=== PATIENT | male | born 1975 | race Caucasian/White ===

== ENCOUNTER 2020-12-20 23:56 | Emergency (ER) | payer OTHER, SELFPAY ==
[2020-12-20 23:58] VITALS: BP 141/99; PULSE 79; RESP 18; TEMP 36.3; O2SAT 98
[2020-12-21] MEDS: LORazepam (*CRX) 1 MG TABLET PO (00:07)
--- NOTE | 2020-12-21 00:30 | ED.ANXIETY ---
HPI - Anxiety General Chief Complaint: Anxiety Stated Complaint: anxiety Time Seen by Provider: 12/21/20 00:00 Source: patient Mode of arrival: EMS Limitations: no limitations History of Present Illness HPI narrative: 45-year-old with a history of anxiety was brought in ambulance from the street complaining that he is feeling anxious. He states that police were chasing him. Patient is homeless. He denies any other symptoms. complaint: anxiety Onset (ago): hour(s) (2) Severity: mild Quality: constant Place: outdoors History of similar episodes: Yes Provoking factors: other (Homeless) Relieving factors: nothing Exacerbating factors: nothing Associated symptoms: denies other symptoms Related Data Allergies Allergy/AdvReac Type Severity Reaction Status Date / Time Unable to Assess Allergy Unverified 11/04/18 06:45 Review of Systems Review of Systems: All systems reviewed & are unremarkable except as noted in HPI and below Constitutional: Constitutional: Reports no additional constitutional complaints Eyes: Eyes: Reports no additional eye complaints ENT: Reports system reviewed and no additional complaints, except as documented Cardiovascular: Cardiovascular: Reports no additional cardiovascular complaints Respiratory: Respiratory: Reports no additional respiratory complaints Gastrointestinal: Gastrointestinal: Reports no additional gastrointestinal complaints Genitourinary: Genitourinary: Reports no additional male genitourinary complaints Neurologic: Reports system reviewed and no additional complaints, except as documented [facility] Social History Social History Substance use type: other Exam Narrative: GENERAL: unkempt , and in no acute distress. HEAD: Normocephalic, atraumatic. EYES: PERRLA and EOMI. NECK: Supple. CHEST: Clear to auscultation. No respiratory distress. HEART: Regular rate and rhythm. No murmur heard. Normal peripheral pulses. ABDOMEN: Soft, nontender, nondistended, normal active bowel sounds. EXTREMITIES: Normal range of motion. No edema. SKIN: Warm, dry, no rash. NEURO: No focal deficits. Alert and oriented x3. PSYCH: Normal mood and affect. Course Course Emergency Course: pt was give Ativan and sandwich , he is feeling better Vital Signs Vital signs: Vital Signs Temperature 36.3 C L 12/20/20 23:58 Pulse Rate 79 12/20/20 23:58 Respiratory Rate 18 12/20/20 23:58 Blood Pressure 141/99 H 12/20/20 23:58 Pulse Oximetry 98 12/20/20 23:58 Temperature 36.3 C L 12/20/20 23:58 Pulse Rate 79 12/20/20 23:58 Respiratory Rate 18 12/20/20 23:58 Blood Pressure 141/99 H 12/20/20 23:58 Pulse Oximetry 98 12/20/20 23:58 Discharge Plan Discharge Clinical Impression: Acute anxiety Patient Disposition: Home, Self-Care Condition: Stable Instructions: Antibiotic Form, Anxiety (ED) Follow-up/Referrals: Samina Robbins MD [Physician] - PHYSICIAN,[employer] [Primary Care Provider] - Time of Disposition: 00:33
[2020-12-21 00:50] VITALS: BP 116/87; PULSE 98; RESP 18; O2SAT 96
== END 2020-12-21 02:00 | disposition home or self-care (01) ==
PROVIDERS: Emergency Provider Family Medicine
DX: F41.9 Anxiety disorder, unspecified (principal)
CPT/HCPCS: 99283; A9270

== ENCOUNTER 2022-02-18 21:29 | Emergency (ER) | payer OTHER, SELFPAY ==
[2022-02-18 21:37] VITALS: BP 124/94; PULSE 100; RESP 14; TEMP 36.6; O2SAT 99
--- NOTE | 2022-02-19 01:06 | ED.GENADULT ---
HPI - General Adult General Chief complaint: Environmental Exposure Stated complaint: Needs warmed up, etoh Time Seen by Provider: 02/19/22 00:49 Source: patient Mode of arrival: ambulatory Limitations: no limitations History of Present Illness HPI narrative: Patient is a 46-year-old male who presents the ED with report of feeling cold. Patient is currently homeless. He states he has been homeless on and off for the last 15 years. He was cold outside today and was looking for a warm place to go. He states he is tired of getting woken up outside constantly and being told he cannot stay in a certain place and has to move. Patient complains of generalized body aches currently. Denies any focal pain. Denies chest pain, difficulty breathing. Denies depression, SI, HI. He does admit to drinking alcohol tonight. Denies drug use. Related Data Allergies Allergy/AdvReac Type Severity Reaction Status Date / Time No Known Allergies Allergy Verified 02/19/22 01:11 Review of Systems Review of Systems: CONSTITUTIONAL: Denies fever, chills, or sweats. CARDIOVASCULAR: Denies chest pain. RESPIRATORY: Denies dyspnea. GASTROINTESTINAL: Denies abdominal pain, nausea, vomiting, or diarrhea. MUSCULOSKELETAL: Reports generalized body aches. NEUROLOGIC: Denies headache, numbness, or weakness. PSYCHIATRIC: Denies depression, SI, HI. All systems reviewed & are unremarkable except as noted in HPI and below PMFSH Past Medical History Medical History (Updated 02/19/22 @ 02:12 by Tami Figueredo PA-C) No pertinent past medical history Surgical History Surgical History (Updated 02/19/22 @ 02:12 by Tami Figueredo PA-C) No pertinent past surgical history Social History Social History (Updated 02/19/22 @ 02:12 by Tami Figueredo PA-C) Smoking status: Current every day smoker Alcohol intake: current Substance use: never Exam Narrative: GENERAL: Disheveled appearing, well-nourished, non-toxic, in no acute distress. HEAD: Normocephalic, atraumatic. EYES: PERRLA/EOMI, conjunctiva clear. ENT: Partially edentulous. Diffuse dental decay and dental caries. NECK: Supple. No adenopathy, no masses. RESPIRATORY: Airway patent, respirations nonlabored. Clear to auscultation bilaterally, no rales, rhonchi, wheezing. CARDIOVASCULAR: Regular rate and rhythm without murmurs, rubs, or gallops. Radial pulses 2+ and equal bilaterally. ABDOMINAL: Soft, nontender, nondistended, no hepatosplenomegaly. Normoactive BS. MUSCULOSKELETAL: Moves all extremities. Strength/ROM intact without gross deformities. SKIN: Warm, dry, normal color. No rashes. NEURO: A&O X3. Speech clear. Cranial nerves II-XII grossly intact. Steady gait. No ataxic movements. PSYCHIATRIC: Appropriate mood and affect. Normal interaction. Course Vital Signs Vital signs: Vital Signs Temperature 97.8 F 02/18/22 21:37 Pulse Rate 100 02/18/22 21:37 Respiratory Rate 14 02/18/22 21:37 Blood Pressure 124/94 H 02/18/22 21:37 Pulse Oximetry 99 02/18/22 21:37 Oxygen Delivery Room Air 02/18/22 21:37 Temperature 97.8 F 02/18/22 21:37 Pulse Rate 96 02/19/22 01:08 Respiratory Rate 18 02/19/22 01:08 Blood Pressure 114/89 02/19/22 01:08 Pulse Oximetry 95 02/19/22 01:08 Oxygen Delivery Room Air 02/18/22 21:37 Medical Decision Making MDM Narrative Medical decision making narrative: [facility] homeless [facility] place to [facility]. He complains of generalized body aches, but denies other acute complaints. Vitals stable. Exam benign. Patient given Tylenol in the ED. Given meal to eat. He is able to tolerate p.o. intake. Allowed to rest for short period of time. Ambulates with a steady gait. Patient alert and oriented x3. Denies SI or HI. He will be discharged. Patient provided with numerous custodial, food pantry, housing resources. Given reasons to return. Medical Records Medical records reviewed: Viviane
[2022-02-19 01:08] VITALS: BP 114/89; PULSE 96; RESP 18; O2SAT 95
--- NOTE | 2022-02-19 01:09 | PC.NURSE ---
Bed alarm placed for pt safety
[2022-02-19] MEDS: ACETAMINOPHEN 500 MG TABLET 1000 MG PO (01:50)
== END 2022-02-19 02:38 | disposition home or self-care (01) ==
PROVIDERS: Emergency Provider Physician Assistant
DX: R52 Pain, unspecified (principal); Z59.00 Homelessness unspecified; F17.210 Nicotine dependence, cigarettes, uncomplicated
CPT/HCPCS: 99283; A9270

== ENCOUNTER 2022-07-01 06:08 | Observation (INO) | payer OTHER, SELFPAY ==
[2022-07-01] VITALS (41 sets, daily range): BP systolic 115–161; BP diastolic 70–108; PULSE 76–123; RESP 14–37; TEMP 36.7; O2SAT 97–100
--- NOTE | ~2022-07-01 | CT_ITS ---
Non-contrast Head CT History: Seizure COMPARISON: 11/04/2018 Technique: Axial non-contrast imaging of the brain was performed. Dose reduction technique was used on this scan by utilizing automated exposure control and iterative reconstruction technique. The dose -length product (DLP) was 605.33 mGy-cm. Findings: There is no evidence of intracranial hemorrhage, mass lesion, or acute infarct. Brain par enchyma appears normal. The ventricles and subarachnoid spaces are mildly dilated. The calvarium ap pears normal. The visualized paranasal sinuses and mastoid air cells are clear. Mild soft tissue swe lling noted in the left parietal scalp. Impression: No acute intracranial abnormality seen. Mild generalized atrophy. Mild soft tissue swelling in the right parietal scalp. Reviewed, dictated and finalized at [facility]. Impression: No acute intracranial abnormality seen. Mild generalized atrophy. Mild soft tissue swelling in the right parietal scalp.
--- NOTE | ~2022-07-01 | XR_ITS ---
Portable chest x-ray Comparison: 02/25/2018 Clinical History: Seizure Findings: Lungs are clear, without focal consolidation or pleural effusion. Cardiomediastinal silho uette is stable. Chronic appearing left rib fracture deformities are noted. There is an apparent osse ous fragment superimposed upon the superior right humeral head. Impression: Suspected 1.6 cm acute fracture fragment superimposed upon the superior right humeral head, possibly avulsion fracture from the greater tuberosity. Cross-sectional imaging should be considered to furthe r evaluate. Clear lungs. Chronic appearing left rib fracture deformities. Reviewed, dictated and finalized at location . Impression: Suspected 1.6 cm acute fracture fragment superimposed upon the superior right h umeral head, possibly avulsion fracture from the greater tuberosity. Cross-sect ional imaging should be considered to further evaluate. Clear lungs. Chronic appearing left rib fracture deformities.
[2022-07-01 06:42] LABS: Basophils Percent Auto 0.6 % (0.2-1.2); Eosinophils Absolute Auto 0.1 K/mm3 (0-0.3); Eosinophils Percent Auto 1.3 % (0-4.4); Hematocrit 36.8 % (42.0-52.0); Hemoglobin 12.2 g/dL (14.0-18.0); Immature Granulocyte Absolute 0.02 K/mm3 (0.00-0.031); Immature Granulocyte Percent A 0.3 % (0-0.5); Lymphocytes Absolute Auto 1.04 K/mm3 (0.9-3.2); Lymphocytes Percent Auto 14.6 % (18.3-44.2); Mean Corpuscular HGB Conc 33.2 g/dl (32-36); Mean Corpuscular Hemoglobin 30.2 pg (26-34); Mean Corpuscular Volume 91.1 fl (80-100); Mean Platelet Volume 9.9 fl (7.4-10.4); Monocytes Absolute Auto 0.6 K/mm3 (0.1-0.6); Monocytes Percent Auto 8.8 % (2.6-8.5); Neutrophils Absolute Auto 5.3 K/mm3 (1.3-6.7); Neutrophils Percent Auto 74.4 % (45.5-73.1); Platelet Count Result 262 k/mm3 (150-375); Red Blood Count 4.04 M/mm3 (4.6-6.20); Red Cell Distribution Width 14.3 % (11.5-14.5); White Blood Count 7.1 K/mm3 (4.5-10.0)
--- NOTE | 2022-07-01 06:43 | ED.SEIZURE ---
HPI - Seizure General Chief Complaint: Seizure <Miriam Bernabe MD - Last Filed: 07/02/22 13:46> Stated Complaint: seizure, combative <Miriam Bernabe MD - Last Filed: 07/02/22 13:46> Time Seen by Provider: 07/01/22 06:15 <Miriam Bernabe MD - Last Filed: 07/02/22 13:46> History of Present Illness HPI Narrative: Patient is a 47-year-old male presenting after a seizure. Patient was reportedly witnessed by a bystander to have generalized tonic-clonic seizure activity at a local truck stop. EMS was called and found him to be postictal. There was bowel incontinence. On arrival, the patient is alert and oriented x3. He states that he has a long history of seizures and he does not take any antiepileptics. Patient states that his body hurts all over which is chronic. He states that his right arm has been broken for 7 months. States that it still hurts. He denies any recent trauma or new pain. <Miriam Bernabe MD - Last Filed: 07/02/22 13:46> Related Data Home Medications: Home Medications Medication Instructions Recorded Confirmed levetiracetam 1,000 mg tablet 1,000 mg PO BID 07/01/22 07/01/22 <Miriam Bernabe MD - Last Filed: 07/02/22 13:46> Allergies/Adverse Reactions: Allergies Allergy/AdvReac Type Severity Reaction Status Date / Time No Known Allergies Allergy Verified 02/19/22 01:11 <Miriam Bernabe MD - Last Filed: 07/02/22 13:46> Review of Systems Review of Systems: All systems reviewed & are unremarkable except as noted in HPI and below <Miriam Bernabe MD - Last Filed: 07/02/22 13:46> [facility] Past Medical History Medical History: Medical History (Updated 07/01/22 @ 18:37 by Renay Aaron NP) Alcoholism Amputation of one or more toes great toe on the right and the second and third toe on the right Anxiety Bipolar disorder CVA (cerebral vascular accident) Depression with anxiety Hyperlipidemia Hypertension Seizures Tobacco abuse <Miriam Bernabe MD - Last Filed: 07/02/22 13:46> Surgical History Surgical History: Surgical History (Updated 07/01/22 @ 15:22 by Renay Aaron NP) History of appendectomy <Miriam Bernabe MD - Last Filed: 07/02/22 13:46> Family History Family History: Family History (Updated 07/01/22 @ 15:25 by Renay Aaron NP) Father Alcohol abuse Tobacco abuse <Miriam Bernabe MD - Last Filed: 07/02/22 13:46> Social History Social History: Social History (Updated 07/01/22 @ 18:38 by Renay Aaron NP) Social History: He continues to smoke 1 1/2 packs of cigarettes a day day. He drinks alcohol but did not quantify. He is estranged from his mother. No children. He is homeless. He denies any illicit drugs. Code status full code Smoking packs per day: 20 Smoking cigarettes per day: 400.0 Smoking status: Current every day smoker Tobacco type: cigarettes Second hand tobacco smoke exposure: Yes Alcohol intake: current Drinks per week: 45 Substance use: never Lack of Transportation: YES Lack of Food: Often True Current Housing: I Do Not Have Housing Concerned About Future Housing: YES Difficulty Paying Gas/Electric Bills: YES Difficulty Paying for Meds: YES Currently Unemployed: Decline to Answer Education: Decline to Answer Difficulty w/ Childcare or Family Care: Decline to Answer Spiritual care concerns: No <Miriam Bernabe MD - Last Filed: 07/02/22 13:46> Exam Narrative: GENERAL: Disheveled, malodorous, clothes in varying states of decay HEAD: Normocephalic, atraumatic. EYES: PERRLA and EOMI. ENT: Poor dentition throughout NECK: Supple. CHEST: Clear to auscultation. No respiratory distress. HEART: Regular rate and rhythm. Normal peripheral pulses. ABDOMEN: Soft, nontender, nondistended EXTREMITIES: Normal range of motion. No edema. SKIN: No rashes or lesions noted NEURO: No focal deficits. Sofya
[2022-07-01] MEDS: SODIUM CHLORIDE 0.9% IV 1,000 ML 999 ML IV CONT (06:45)
[2022-07-01 06:52] LABS: Alanine Aminotransferase 25 U/L (6-50); Alkaline Phosphatase 128 U/L (38-126); Anion Gap 8 mmol/L (8-16); Aspartate Amino Transferase 47 U/L (17-59); Bilirubin,Total 0.5 mg/dL (0.2-1.3); Blood Urea Nitrogen 5 mg/dL (9-20); Calcium 8.5 mg/dL (8.4-10.2); Carbon Dioxide 28 mmol/L (22-30); Chloride 100 mmol/L (98-107); Estimated CRCL calculation 117 ml/min; Estimated Glomerular Filt Rate > 60; Glucose 88 mg/dL (65-110); Potassium 3.6 mmol/L (3.4-5.0); Sodium 136 mmol/L (137-145)
[2022-07-01 06:53] LABS: Ethanol < 10 mg/dL (<10)
--- NOTE | 2022-07-01 07:28 | PC.NURSE ---
Pt states he is unable to give urine sample at this time. Pt refusing straight cath. Urinal left at bedside
--- NOTE | 2022-07-01 08:11 | PC.NURSE ---
Pt attempting to urinate into urinal at this time
--- NOTE | 2022-07-01 08:45 | PC.NURSE ---
Pt seizing at this time. Pt snoring and foaming at the mouth. HR elevated. Pt incontinent of loose stool, Dr. Hernandez at bedside
[2022-07-01] MEDS: levETIRAcetam 1000MG/NACL100ML 1,000 MG/100 ML BAG 400 MG IVPB ×2 (08:57→20:35)
[2022-07-01] MEDS: LORazepam INJ (*CRX) 2 MG/ML VIAL 1 MG IV PUSH (08:57)
[2022-07-01] MEDS: levETIRAcetam 500MG/NACL 100ML 500 MG/100 ML BAG 400 MG IVPB (08:58)
[2022-07-01 09:18] LABS: Amphetamine Screen Urine Negative (Negative); Appearance Urine Cloudy (Clear); Bacteria Urine None Seen /hpf; Barbiturate Screen Urine Negative (Negative); Benzodiazepines Screen Urine Negative (Negative); Bilirubin Urine Negative (Negative); Blood Urine Negative (Negative); Cannabinoid Screen Urine Negative (Negative); Cocaine Screen Urine Negative (Negative); Color Urine Yellow (Yellow); Glucose Urine UA Negative (Negative); Granular Casts Urine Present /lpf; Ketones Urine Negative (Negative); Leukocyte Esterase Ur Negative LEU/UL (Negative); Methadone Screen Urine Negative (Negative); Mucus Urine Present /lpf; Nitrate Urine Negative (Negative); Opiate Screen Urine Negative (Negative); Phencyclidine Screen Urine Negative (Negative); Protein Urine 1+ mg/dL (Negative); RBC Urine 0-2 /hpf (0-2); Specific Grav Ur 1.012 (1.001-1.035); Spermatozoa Urine Present; Squamous Epithelial Cell Urine Occasional /hpf (Few); Urobilinogen Urine 0.2 mg/dL (<2.0); WBC Urine 0-5 /hpf; pH Urine 5.5 (5.0-9.0)
[2022-07-01 09:32] LABS: Add Urine Microscopic? YES
--- NOTE | 2022-07-01 14:11 | PC.NURSE ---
patient attempted to walk to bathroom. patient unsteady on feet. MD Keys notified.
--- NOTE | 2022-07-01 15:20 | PM.IMHP ---
H&P: HPI History of Present Illness Date/Time: 07/01/22 15:20 Chief Complaint: Seizure Narrative: This is a 47-year-old homeless man who came to the emergency room with a seizure. This was witnessed by a bystander and the patient was noticed to have a tonic clonic seizure activity at a local truck stop. When EMS came the patient was noted to be postictal. The patient had bowel incontinence. On arrival the patient was alert orientated x3. The patient has a long history of seizure activity and does not take his medications. He stated that his body hurts all over and this is chronic. The patient stated he had a broken arm 7 months ago and he still feels pain in that arm. H&H is 12.2 and 36.8. Sodium is 136. Urine is cloudy but negative for UTI. Toxicology screen is negative. Head CT was read as no acute intracranial abnormality seen. Mild general atrophy. Mild soft tissue swelling in the right parietal scalp. The patient was given IV fluids, Keppra, and Ativan. The patient is being admitted to observation status on the date of service of 07/01/2022. Review of Systems Review of Systems: All systems reviewed & are unremarkable except as noted in HPI and below Constitutional: Constitutional: Reports as per HPI and Reports no additional constitutional complaints Eyes: Eyes: Reports as per HPI and Reports no additional eye complaints ENT: Reports system reviewed and no additional complaints, except as documented and Reports Normal hearing present Cardiovascular: Cardiovascular: Reports no additional cardiovascular complaints Respiratory: Respiratory: Reports no additional respiratory complaints and Reports no additional respiratory complaints Gastrointestinal: Gastrointestinal: Reports as per HPI and Reports no additional gastrointestinal complaints Musculoskeletal: Musculoskeletal: Reports no additional musculoskeletal complaints Integumentary/Breasts: Skin/Breast: Reports system reviewed and no additional complaints, except as docu and Reports as per HPI Neurologic: Reports system reviewed and no additional complaints, except as documented, Reports as per HPI and Reports Normal hearing present Psychiatric: Psychiatric: Reports no additional psychiatric complaints and Reports as per HPI Endocrine: Endocrine: Reports no additional endocrine complaints Hematologic/Lymphatic: Hematologic/Lymphatic: Reports no additional hematologic/lymphatic complaints Allergic/Immunologic: Allergic/Immunologic: Reports no additional allergic/immunologic complaints [facility] Past Medical History Medical History (Updated 07/01/22 @ 18:37 by Renay Aaron NP) Alcoholism Amputation of one or more toes great toe on the right and the second and third toe on the right Anxiety Bipolar disorder CVA (cerebral vascular accident) Depression with anxiety Hyperlipidemia Hypertension Seizures Tobacco abuse Surgical History Surgical History (Updated 07/01/22 @ 15:22 by Renay Aaron NP) History of appendectomy Family History Family History (Updated 07/01/22 @ 15:25 by Renay Aaron NP) Father Alcohol abuse Tobacco abuse Social History Social History (Updated 07/01/22 @ 18:38 by Renay Aaron NP) Social History: He continues to smoke 1 1/2 packs of cigarettes a day day. He drinks alcohol but did not quantify. He is estranged from his mother. No children. He is homeless. He denies any illicit drugs. Code status full code Smoking packs per day: 20 Smoking cigarettes per day: 400.0 Smoking status: Current every day smoker Tobacco type: cigarettes Second hand tobacco smoke exposure: Yes Alcohol intake: current Drinks per week: 45 Substance use: never Lack of Transportation: YES Lack of Food: Often True Current Housing: I Do Not Have Housing Concerned About Future Housing: YES Difficulty Paying Gas/Electric Bills: YES Difficulty Paying for Meds: YES Currently Unemployed: Decline t
--- NOTE | 2022-07-01 18:23 | PC.NURSE ---
This patient, Luis Desouza, was admitted to [facility] Surg Room 305-01. Patient/family oriented to hospital policies and general routines including ID bracelet, bed and alarms, visiting hours, pain management, procedures, bathroom and other care routines, personal items, smoking policy, room service/diet, and visiting hours. Information on how to activate the Rapid Response Team has been discussed. Patient asking to leave to go smoke cigarettes, discussed hospital policy, room moved closer to nurses station. Patient/Family are encouraged to report perceived risks to care and to ask questions if they do not understand what they are told or what they should do.
[2022-07-01] MEDS: chlordiazePOXIDE (*CRX) 25 MG CAPSULE 50 MG PO (23:00)
[2022-07-02 05:36] VITALS: BP 134/94; PULSE 73; RESP 14; TEMP 36.1; O2SAT 98
[2022-07-02] MEDS: chlordiazePOXIDE (*CRX) 25 MG CAPSULE 50 MG PO ×4 (05:53→23:51)
[2022-07-02 06:29] LABS: Basophils Absolute Auto 0.1 K/mm3 (0.0-0.1); Basophils Percent Auto 0.9 % (0.2-1.2); Eosinophils Absolute Auto 0.1 K/mm3 (0-0.3); Eosinophils Percent Auto 2.1 % (0-4.4); Hematocrit 37.7 % (42.0-52.0); Hemoglobin 12.3 g/dL (14.0-18.0); Immature Granulocyte Absolute 0.01 K/mm3 (0.00-0.031); Immature Granulocyte Percent A 0.2 % (0-0.5); Lymphocytes Absolute Auto 1.36 K/mm3 (0.9-3.2); Lymphocytes Percent Auto 25.8 % (18.3-44.2); Mean Corpuscular HGB Conc 32.6 g/dl (32-36); Mean Platelet Volume 9.8 fl (7.4-10.4); Monocytes Absolute Auto 0.7 K/mm3 (0.1-0.6); Monocytes Percent Auto 12.9 % (2.6-8.5); Neutrophils Absolute Auto 3.1 K/mm3 (1.3-6.7); Neutrophils Percent Auto 58.1 % (45.5-73.1); Platelet Count Result 233 k/mm3 (150-375); Red Cell Distribution Width 14.3 % (11.5-14.5); White Blood Count 5.3 K/mm3 (4.5-10.0)
[2022-07-02 06:37] LABS: Lactic Acid Reflex 0.6 mmol/L (0.7-2.0)
[2022-07-02 06:38] LABS: Alanine Aminotransferase 19 U/L (6-50); Albumin Level 3.5 g/dL (3.5-5.1); Alkaline Phosphatase 126 U/L (38-126); Anion Gap 2 mmol/L (8-16); Aspartate Amino Transferase 35 U/L (17-59); Bilirubin,Total 0.8 mg/dL (0.2-1.3); Blood Urea Nitrogen 5 mg/dL (9-20); Calcium 8.2 mg/dL (8.4-10.2); Carbon Dioxide 29 mmol/L (22-30); Chloride 105 mmol/L (98-107); Estimated CRCL calculation 117 ml/min; Estimated Glomerular Filt Rate > 60; Glucose 87 mg/dL (65-110); Magnesium 1.8 mg/dL (1.6-2.3); Potassium 2.9 mmol/L (3.4-5.0); Sodium 136 mmol/L (137-145)
[2022-07-02 07:34] LABS: Glucose Point of Care 96 mg/dl (65-105)
[2022-07-02] MEDS: THIAMINE HCL 200 MG/2 ML VIAL 100 MG IV PUSH (08:18)
[2022-07-02] MEDS: FOLIC ACID 1 MG TABLET PO (08:19)
[2022-07-02] MEDS: levETIRAcetam 1000MG/NACL100ML 1,000 MG/100 ML BAG 400 MG IVPB ×2 (10:55→21:09)
--- NOTE | 2022-07-02 11:43 | WPDNEURCNPN ---
Assessment and Plan Assessment and plan (1) Alcohol abuse: Code(s): F10.10 - Alcohol abuse, uncomplicated Status: Acute (2) Depression with anxiety: Code(s): F41.8 - Other specified anxiety disorders Status: Acute (3) Tobacco abuse: Code(s): Z72.0 - Tobacco use Status: Acute (4) Alcoholism: Code(s): F10.20 - Alcohol dependence, uncomplicated Status: Acute (5) Bipolar disorder: Code(s): F31.9 - Bipolar disorder, unspecified Status: Acute (6) Seizures: Code(s): R56.9 - Unspecified convulsions Status: Acute Plan 1 chronic alcoholism with generalized deconditioning 2. Could be alcohol withdrawal seizure but obviously with some frequent trauma can have the real seizure disorder as well 3 underlying anxiety with bipolar illness as per the history resulting in the poor compliance with medical care. Will need the anticonvulsants, EEG, and social service consult Consult date: 07/02/22 HPI: Luis Desouza is a 47 year old male admitted to the hospital through the emergency room for the complaints of seizure reportedly the seizure was witnessed by a bystander he was noted to have generalized tonic-clonic activity at a local truck stop when EMS were called and was found to be in postictal status there was no bowel incontinence by the time he came to the ER he was awake alert oriented x3 and reported that he has long history of seizure disorder but he does not take any antiepileptics he also complains of generalized chronic pain his right upper extremity broke in about 7 months ago but it still hurts though he gave no history of recent trauma, not allergic to any medications he is a currently everyday smoker and also everyday alcohol intake but never substance use initial exam in the ER documented no neurological deficit vital signs were stable he was afebrile with blood pressure 131/98, he was noted to have another seizure in the ER he has been clean lab studies were negative including the drug screen as well. , chest x-ray raised the possibility of 1.6cm acute fracture fragment superimposed upon the superior right humeral head possibly avulsion fracture head CT scan revealed no evidence of bleed though mild soft tissue swelling in the right parietal scalp was noted with mild generalized atrophy of the brain, he does have ongoing history of anxiety with bipolar disorder, hypertension, tobacco abuse, and seizures PMFSH Past Medical History Medical History (Updated 07/01/22 @ 18:37 by Renay Aaron NP) Alcoholism Amputation of one or more toes great toe on the right and the second and third toe on the right Anxiety Bipolar disorder CVA (cerebral vascular accident) Depression with anxiety Hyperlipidemia Hypertension Seizures Tobacco abuse Surgical History Surgical History (Updated 07/01/22 @ 15:22 by Renay Aaron NP) History of appendectomy Family History Family History (Updated 07/01/22 @ 15:25 by Renay Aaron NP) Father Alcohol abuse Tobacco abuse Social History Social History (Updated 07/01/22 @ 18:38 by Renay Aaron NP) Social History: He continues to smoke 1 1/2 packs of cigarettes a day day. He drinks alcohol but did not quantify. He is estranged from his mother. No children. He is homeless. He denies any illicit drugs. Code status full code Smoking packs per day: 20 Smoking cigarettes per day: 400.0 Smoking status: Current every day smoker Tobacco type: cigarettes Second hand tobacco smoke exposure: Yes Alcohol intake: current Drinks per week: 45 Substance use: never Lack of Transportation: YES Lack of Food: Often True Current Housing: I Do Not Have Housing Concerned About Future Housing: YES Difficulty Paying Gas/Electric Bills: YES Difficulty Paying for Meds: YES Currently Unemployed: Decline to Answer Education: Decline to Answer Difficulty w/ Childcare or Family Care: Decline t
[2022-07-02 11:59] LABS: Glucose Point of Care 94 mg/dl (65-105)
--- NOTE | 2022-07-02 12:53 | PCSTNOTE ---
Patient seen for bedside communication evaluation. Based on this evaluation, patient's communication is within functional limits and most likely at prior level. Patient's auditory comprehension and verbal expression are functional and he is able to communicate his wants and needs adequately verbally. Oral peripheral examination within normal limits except for many broken and missing teeth. Resonance is habitually mildly hypernasal. This may be the result of tissue changes due to various factors such as possible exposure to a variety of substances. However, this does not interfer with patient's intelligibility. At this time no speech therapy is recommended. Thank you very much for the referral of this patient. [ End ]
--- NOTE | 2022-07-02 13:18 | P.PNIM_ITS ---
Progress Note: A&P Assessment and Plan (1) Seizures: Code(s): R56.9 - Unspecified convulsions Status: Acute Assessment and Plan: Patient had seizure witnessed by bystander. He does have a known seizure disorder. * It is noted in the past that the patient has had alcohol withdrawal seizures. * Neurology has been consulted * EEG ordered * He states that he drinks approximately 12 beers daily * This could possibly be an alcohol withdrawal seizure. * It was also reported that the patient is supposed to be on Keppra and does not take his medication. * Patient started on Keppra 1000 mg bid (2) Alcohol abuse: Code(s): F10.10 - Alcohol abuse, uncomplicated Status: Acute Assessment and Plan: * It is suspected that the patient is going through alcohol withdrawal. * Continue with neurological checks and CIWA scores. * Continue with Haldol, Ativan, banana bag, Librium, folic acid and thiamin. (3) Depression with anxiety: Code(s): F41.8 - Other specified anxiety disorders Status: Acute Assessment and Plan: * Continue with Ativan. * The patient is homeless. And he is estranged from his family. (4) Hypertension: Code(s): I10 - Essential (primary) hypertension Status: Acute Assessment and Plan: * His blood pressure is elevated and it could be related to his withdrawal symptoms. * P.r.n. hydralazine (5) Hyperlipidemia: Code(s): E78.5 - Hyperlipidemia, unspecified Status: Acute Assessment and Plan: * The patient takes no medication at this time. (6) Tobacco abuse: Code(s): Z72.0 - Tobacco use Status: Acute Assessment and Plan: * I offered him a nicotine patch and nicotine gum. * The patient stated that he wants to leave to smoke a cigarette. * I explained to him that that we have a no smoking policy. * Smoking cessation education will be given to the patient. Subjective Date/time seen: 07/02/22 13:18 Interval history: Patient is alert and oriented x4. what are the patient he stated that when he has a seizure he blacks out and gets really dizzy and this happened yesterday. Patient states that he drinks approximately 12 beers a day. Patient has known complaints today and denies chest pain, shortness a breath, dizziness, lightheadedness, nausea, vomiting, body aches and chills. Review of Systems Review of Systems: All systems reviewed & are unremarkable except as noted in HPI and below Exam Narrative: GENERAL: Comfortable, no acute distress HENMT: moist mucous membranes EYES: EOM intact b/l NECK: no lymphadenopathy RESPIRATORY: decreased breath sounds CARDIO: RRR GI: soft, nontender, bowel sounds present SKIN: no rashes EXTREMITIES: no edema, redness or tenderness PSYCH:disheveled appearance. Objective Data Vital Signs Vital Signs: Vital Signs - 24 hr 07/01/22 13:30 07/01/22 13:31 07/01/22 13:45 Temperature Pulse Rate 88 92 100 Respiratory Rate 21 H 18 19 Blood Pressure 143/87 H Pulse Oximetry 99 Oxygen Delivery 07/01/22 14:30 07/01/22 14:31 07/01/22 14:45 Temperature Pulse Rate 83 82 76 Respiratory Rate 16 17 18 B
--- NOTE | 2022-07-02 13:18 | PM.IMPN ---
Progress Note: A&P Assessment and Plan (1) Seizures: Code(s): R56.9 - Unspecified convulsions Status: Acute Assessment and Plan: Patient had seizure witnessed by bystander. He does have a known seizure disorder. It is noted in the past that the patient has had alcohol withdrawal seizures. Neurology has been consulted EEG ordered He states that he drinks approximately 12 beers daily This could possibly be an alcohol withdrawal seizure. It was also reported that the patient is supposed to be on Keppra and does not take his medication. Patient started on Keppra 1000 mg bid (2) Alcohol abuse: Code(s): F10.10 - Alcohol abuse, uncomplicated Status: Acute Assessment and Plan: It is suspected that the patient is going through alcohol withdrawal. Continue with neurological checks and CIWA scores. Continue with Haldol, Ativan, banana bag, Librium, folic acid and thiamin. (3) Depression with anxiety: Code(s): F41.8 - Other specified anxiety disorders Status: Acute Assessment and Plan: Continue with Ativan. The patient is homeless. And he is estranged from his family. (4) Hypertension: Code(s): I10 - Essential (primary) hypertension Status: Acute Assessment and Plan: His blood pressure is elevated and it could be related to his withdrawal symptoms. P.r.n. hydralazine (5) Hyperlipidemia: Code(s): E78.5 - Hyperlipidemia, unspecified Status: Acute Assessment and Plan: The patient takes no medication at this time. (6) Tobacco abuse: Code(s): Z72.0 - Tobacco use Status: Acute Assessment and Plan: I offered him a nicotine patch and nicotine gum. The patient stated that he wants to leave to smoke a cigarette. I explained to him that that we have a no smoking policy. Smoking cessation education will be given to the patient. Subjective Date/time seen: 07/02/22 13:18 Interval history: Patient is alert and oriented x4. what are the patient he stated that when he has a seizure he blacks out and gets really dizzy and this happened yesterday. Patient states that he drinks approximately 12 beers a day. Patient has known complaints today and denies chest pain, shortness a breath, dizziness, lightheadedness, nausea, vomiting, body aches and chills. Review of Systems Review of Systems: All systems reviewed & are unremarkable except as noted in HPI and below Exam Narrative: GENERAL: Comfortable, no acute distress HENMT: moist mucous membranes EYES: EOM intact b/l NECK: no lymphadenopathy RESPIRATORY: decreased breath sounds CARDIO: RRR GI: soft, nontender, bowel sounds present SKIN: no rashes EXTREMITIES: no edema, redness or tenderness PSYCH:disheveled appearance. Objective Data Vital Signs Vital Signs: Vital Signs - 24 hr 07/01/22 13:30 07/01/22 13:31 07/01/22 13:45 Temperature Pulse Rate 88 92 100 Respiratory Rate 21 H 18 19 Blood Pressure 143/87 H Pulse Oximetry 99 Oxygen Delivery 07/01/22 14:30 07/01/22 14:31 07/01/22 14:45 Temperature Pulse Rate 83 82 76 Respiratory Rate 16 17 18 Blood Pressure 134/95 H Pulse Oximetry 99 100 99 Oxygen Delivery 07/01/22 15:00 07/01/22 15:01 07/01/22 15:15 Temperature Pulse Rate 81 81 88 Respiratory Rate 17 20 19 Blood Pressure 145/89 H Pulse Oximetry 98 98 Oxygen Delivery 07/01/22 15:30 07/01/22 15:31 07/01/22 15:45 Temperature Pulse Rate 99 84 94 Respiratory Rate 18 18 17 Blood Pressure 139/95 H Pulse Oximetry Oxygen Delivery 07/01/22 16:01 07/01/22 16:08 07/01/22 20:00 Temperature Pulse Rate 87 95 95 Respiratory Rate 21 H 22 H 22 H Blood Pressure 132/96 H Pulse Oximetry 98 98 Oxygen Delivery Room Air 07/01/22 22:00 07/02/22 05:36 07/02/22 08:00 Temperature 98.0 F 96.9 F L Pulse Rate 96 73 Respir
[2022-07-02 14:00] VITALS: BP 116/85; PULSE 92; RESP 16; TEMP 35.9; O2SAT 95
[2022-07-02] MEDS: POTASSIUM CHLORIDE 20 MEQ PACKET (FOR LIQUID) 60 MEQ PO (16:01)
[2022-07-02 18:05] LABS: Glucose Point of Care 139 mg/dl (65-105)
[2022-07-02 19:56] VITALS: PULSE 92; RESP 16; O2SAT 95
[2022-07-02 21:44] VITALS: BP 128/87; PULSE 71; RESP 18; TEMP 35.9; O2SAT 97
[2022-07-03 00:30] LABS: Glucose Point of Care 122 mg/dl (65-105)
[2022-07-03] MEDS: chlordiazePOXIDE (*CRX) 25 MG CAPSULE 50 MG PO (05:38)
[2022-07-03 06:00] VITALS: BP 127/91; PULSE 73; RESP 14; TEMP 35.8; O2SAT 96
[2022-07-03 06:22] LABS: Hematocrit 36.3 % (42.0-52.0); Hemoglobin 11.6 g/dL (14.0-18.0); Mean Corpuscular Hemoglobin 29.8 pg (26-34); Mean Corpuscular Volume 93.3 fl (80-100); Mean Platelet Volume 10.1 fl (7.4-10.4); Platelet Count Result 214 k/mm3 (150-375); Red Blood Count 3.89 M/mm3 (4.6-6.20); Red Cell Distribution Width 14.3 % (11.5-14.5); White Blood Count 5.9 K/mm3 (4.5-10.0)
[2022-07-03 06:28] LABS: Glucose Point of Care 105 mg/dl (65-105)
[2022-07-03 06:30] LABS: Alanine Aminotransferase 16 U/L (6-50); Albumin Level 3.2 g/dL (3.5-5.1); Alkaline Phosphatase 118 U/L (38-126); Anion Gap 2 mmol/L (8-16); Aspartate Amino Transferase 27 U/L (17-59); Bilirubin,Total 0.3 mg/dL (0.2-1.3); Blood Urea Nitrogen 6 mg/dL (9-20); Calcium 8.2 mg/dL (8.4-10.2); Carbon Dioxide 31 mmol/L (22-30); Chloride 105 mmol/L (98-107); Estimated CRCL calculation 134 ml/min; Estimated Glomerular Filt Rate > 60; Glucose 105 mg/dL (65-110); Potassium 3.1 mmol/L (3.4-5.0); Sodium 138 mmol/L (137-145)
[2022-07-03] MEDS: levETIRAcetam 1000MG/NACL100ML 1,000 MG/100 ML BAG 400 MG IVPB ×2 (08:07→20:08)
[2022-07-03] MEDS: FOLIC ACID 1 MG TABLET PO (08:08)
[2022-07-03] MEDS: POTASSIUM CHLORIDE 20 MEQ PACKET (FOR LIQUID) 60 MEQ PO (08:08)
[2022-07-03 08:09] VITALS: RESP 14; O2SAT 96
[2022-07-03] MEDS: THIAMINE HCL 200 MG/2 ML VIAL 100 MG IV PUSH (08:09)
--- NOTE | 2022-07-03 09:47 | WPDNEUROLOGY ---
Neurology EEG Report General Information Date of Study: 07/02/22 TEST eeg DIAGNOSIS seizures CONDITION OF RECORDING drowsy and sleep EEG NUMBER [id number] CLINICAL HISTORY patient reports he has had 130+ seizures since 2020 does not know why he started having them. Does not take medications like he is supposed to. EEG DESCRIPTION Basic resting occipital frequency consists of low-voltage 8 to 10 hertz per 2nd alpha admixed with low-voltage 15 to 18 hertz per 2nd beta. Bilateral symmetrical sleep activity seen during sleep with mixture of beta theta activity. Hyperventilation not done. Photic stimulation not done. Non paroxysmal. Nonfocal. Non lateralizing. IMPRESSION No abnormalities noted in this particular tracing clinical correlation recommended.
[2022-07-03] MEDS: chlordiazePOXIDE (*CRX) 25 MG CAPSULE PO (11:34)
--- NOTE | 2022-07-03 11:53 | P.PNIM_ITS ---
Progress Note: A&P Assessment and Plan (1) Seizures: Code(s): R56.9 - Unspecified convulsions Status: Acute Assessment and Plan: Patient had seizure witnessed by bystander. He does have a known seizure disorder. * It is noted in the past that the patient has had alcohol withdrawal seizures. * Neurology has been consulted * EEG revealing no abnormalities * He states that he drinks approximately 12 beers daily * This could possibly be an alcohol withdrawal seizure. * It was also reported that the patient is supposed to be on Keppra and does not take his medication. * Patient started on Keppra 1000 mg bid (2) Alcohol abuse: Code(s): F10.10 - Alcohol abuse, uncomplicated Status: Acute Assessment and Plan: * It is suspected that the patient is going through alcohol withdrawal. * Continue with neurological checks and CIWA scores. * Continue with Haldol, Ativan, banana bag, Librium, folic acid and thiamin. * Patient has had very low CIWA scores and Librium deescalated to a p.r.n. for CIWA greater than 8. (3) Depression with anxiety: Code(s): F41.8 - Other specified anxiety disorders Status: Acute Assessment and Plan: * Continue with Ativan. * The patient is homeless. And he is estranged from his family. (4) Hypertension: Code(s): I10 - Essential (primary) hypertension Status: Acute Assessment and Plan: * His blood pressure is elevated and it could be related to his withdrawal symptoms. * P.r.n. hydralazine (5) Hyperlipidemia: Code(s): E78.5 - Hyperlipidemia, unspecified Status: Acute Assessment and Plan: * The patient takes no medication at this time. (6) Tobacco abuse: Code(s): Z72.0 - Tobacco use Status: Acute Assessment and Plan: * I offered him a nicotine patch and nicotine gum. * The patient stated that he wants to leave to smoke a cigarette. * I explained to him that that we have a no smoking policy. * Smoking cessation education will be given to the patient. Subjective Date/time seen: 07/03/22 11:53 Interval history: Patient doing well today. Patient CIWA scores have been low. Plan to monitor for approximately 24 hours off of scheduled Librium. If patient remains stable should be able to discharge tomorrow. Review of Systems Review of Systems: All systems reviewed & are unremarkable except as noted in HPI and below Exam Narrative: GENERAL: Comfortable, no acute distress HENMT: moist mucous membranes EYES: EOM intact b/l NECK: no lymphadenopathy RESPIRATORY: decreased breath sounds CARDIO: RRR GI: soft, nontender, bowel sounds present SKIN: no rashes EXTREMITIES: no edema, redness or tenderness PSYCH:disheveled appearance. Objective Data Vital Signs Vital Signs: Vital Signs - 24 hr 07/02/22 14:00 07/02/22 15:26 07/02/22 19:56 Temperature 96.7 F L Pulse Rate 92 92 Respiratory Rate 16 16 Blood Pressure 116/85 Pulse Oximetry 95 95 Oxygen Delivery Room Air Room Air 07/02/22 21:44 07/03/22 06:00 07/03/22 08:09 Temperature 96.7 F L 96.5 F L Pulse Rate 71 73 Respiratory Rate 18 14 14 Blood Pressu
--- NOTE | 2022-07-03 11:53 | PM.IMPN ---
Progress Note: A&P Assessment and Plan (1) Seizures: Code(s): R56.9 - Unspecified convulsions Status: Acute Assessment and Plan: Patient had seizure witnessed by bystander. He does have a known seizure disorder. It is noted in the past that the patient has had alcohol withdrawal seizures. Neurology has been consulted EEG revealing no abnormalities He states that he drinks approximately 12 beers daily This could possibly be an alcohol withdrawal seizure. It was also reported that the patient is supposed to be on Keppra and does not take his medication. Patient started on Keppra 1000 mg bid (2) Alcohol abuse: Code(s): F10.10 - Alcohol abuse, uncomplicated Status: Acute Assessment and Plan: It is suspected that the patient is going through alcohol withdrawal. Continue with neurological checks and CIWA scores. Continue with Haldol, Ativan, banana bag, Librium, folic acid and thiamin. Patient has had very low CIWA scores and Librium deescalated to a p.r.n. for CIWA greater than 8. (3) Depression with anxiety: Code(s): F41.8 - Other specified anxiety disorders Status: Acute Assessment and Plan: Continue with Ativan. The patient is homeless. And he is estranged from his family. (4) Hypertension: Code(s): I10 - Essential (primary) hypertension Status: Acute Assessment and Plan: His blood pressure is elevated and it could be related to his withdrawal symptoms. P.r.n. hydralazine (5) Hyperlipidemia: Code(s): E78.5 - Hyperlipidemia, unspecified Status: Acute Assessment and Plan: The patient takes no medication at this time. (6) Tobacco abuse: Code(s): Z72.0 - Tobacco use Status: Acute Assessment and Plan: I offered him a nicotine patch and nicotine gum. The patient stated that he wants to leave to smoke a cigarette. I explained to him that that we have a no smoking policy. Smoking cessation education will be given to the patient. Subjective Date/time seen: 07/03/22 11:53 Interval history: Patient doing well today. Patient CIWA scores have been low. Plan to monitor for approximately 24 hours off of scheduled Librium. If patient remains stable should be able to discharge tomorrow. Review of Systems Review of Systems: All systems reviewed & are unremarkable except as noted in HPI and below Exam Narrative: GENERAL: Comfortable, no acute distress HENMT: moist mucous membranes EYES: EOM intact b/l NECK: no lymphadenopathy RESPIRATORY: decreased breath sounds CARDIO: RRR GI: soft, nontender, bowel sounds present SKIN: no rashes EXTREMITIES: no edema, redness or tenderness PSYCH:disheveled appearance. Objective Data Vital Signs Vital Signs: Vital Signs - 24 hr 07/02/22 14:00 07/02/22 15:26 07/02/22 19:56 Temperature 96.7 F L Pulse Rate 92 92 Respiratory Rate 16 16 Blood Pressure 116/85 Pulse Oximetry 95 95 Oxygen Delivery Room Air Room Air 07/02/22 21:44 07/03/22 06:00 07/03/22 08:09 Temperature 96.7 F L 96.5 F L Pulse Rate 71 73 Respiratory Rate 18 14 14 Blood Pressure 128/87 127/91 H Pulse Oximetry 97 96 96 Oxygen Delivery Room Air Intake/Output Intake/Output: Intake & Output 06/30/22 07/01/22 07/02/22 07/03/22 23:59 23:59 23:59 23:59 Intake Total 1300 2973.2 920 Output Total 1025 700 Balance 1300 1948.2 220 Meds/Results Medications: Active Medications Generic Name Dose Route Start Last Admin Trade Name Freq PRN Reason Stop Dose Admin Folic Acid 1 mg 07/02/22 09:00 07/03/22 08:08 Folic Acid 1 Mg Tablet PO 1 mg DAILY PAREVZ Administration Haloperidol Lactate 2 mg 07/01/22 18:21 Haloperidol Lactate 5 Mg/Ml Vial IV PUSH Q2H PRN Delirium Hydralazine HCl 10 mg 07/01/22 18:48 Hydralazine Hcl 20 Mg/Ml Vial IV PUSH Q8H PRN Bl
[2022-07-03 12:03] LABS: Glucose Point of Care 103 mg/dl (65-105)
[2022-07-03 13:59] VITALS: BP 120/85; PULSE 83; RESP 18; TEMP 36.2; O2SAT 98
[2022-07-03 17:52] LABS: Glucose Point of Care 134 mg/dl (65-105)
[2022-07-03 21:14] VITALS: BP 144/90; PULSE 69; RESP 16; TEMP 36; O2SAT 96
[2022-07-03 23:46] LABS: Glucose Point of Care 102 mg/dl (65-105)
[2022-07-04 05:48] LABS: Glucose Point of Care 104 mg/dl (65-105)
[2022-07-04 05:54] VITALS: BP 129/82; PULSE 68; RESP 18; TEMP 36.1; O2SAT 98
[2022-07-04 07:12] LABS: Alanine Aminotransferase 18 U/L (6-50); Albumin Level 3.6 g/dL (3.5-5.1); Alkaline Phosphatase 91 U/L (38-126); Anion Gap 3 mmol/L (8-16); Aspartate Amino Transferase 32 U/L (17-59); Bilirubin,Total 0.5 mg/dL (0.2-1.3); Blood Urea Nitrogen 5 mg/dL (9-20); Calcium 8.1 mg/dL (8.4-10.2); Carbon Dioxide 30 mmol/L (22-30); Chloride 104 mmol/L (98-107); Estimated CRCL calculation 134 ml/min; Estimated Glomerular Filt Rate > 60; Glucose 97 mg/dL (65-110); Potassium 3.5 mmol/L (3.4-5.0); Sodium 137 mmol/L (137-145)
[2022-07-04 07:16] LABS: Basophils Percent Auto 0.3 % (0.2-1.2); Eosinophils Absolute Auto 0.3 K/mm3 (0-0.3); Eosinophils Percent Auto 4.6 % (0-4.4); Hematocrit 38.4 % (42.0-52.0); Hemoglobin 12.5 g/dL (14.0-18.0); Immature Granulocyte Absolute 0.01 K/mm3 (0.00-0.031); Immature Granulocyte Percent A 0.1 % (0-0.5); Lymphocytes Absolute Auto 1.42 K/mm3 (0.9-3.2); Lymphocytes Percent Auto 19.3 % (18.3-44.2); Mean Corpuscular HGB Conc 32.6 g/dl (32-36); Mean Corpuscular Hemoglobin 30.7 pg (26-34); Mean Corpuscular Volume 94.3 fl (80-100); Mean Platelet Volume 10.4 fl (7.4-10.4); Monocytes Absolute Auto 0.9 K/mm3 (0.1-0.6); Monocytes Percent Auto 11.7 % (2.6-8.5); Neutrophils Absolute Auto 4.7 K/mm3 (1.3-6.7); Platelet Count Result 195 k/mm3 (150-375); Red Blood Count 4.07 M/mm3 (4.6-6.20); Red Cell Distribution Width 14.2 % (11.5-14.5); White Blood Count 7.4 K/mm3 (4.5-10.0)
[2022-07-04] MEDS: levETIRAcetam 1000MG/NACL100ML 1,000 MG/100 ML BAG 400 MG IVPB (09:21)
--- NOTE | 2022-07-04 10:00 | PM.DS ---
DS: Admitting Diagnosis Discharge Date 07/04/22 1000 Admitting Diagnosis Recurrent seizure DS: Discharge Diagnosis Discharge Diagnosis (1) Seizures: Code(s): R56.9 - Unspecified convulsions Status: Acute Assessment and Plan: Patient had seizure witnessed by bystander. He does have a known seizure disorder. It is noted in the past that the patient has had alcohol withdrawal seizures. Neurology has been consulted EEG revealing no abnormalities He states that he drinks approximately 12 beers daily This could possibly be an alcohol withdrawal seizure. It was also reported that the patient is supposed to be on Keppra and does not take his medication. Patient started on Keppra 1000 mg bid (2) Alcohol abuse: Code(s): F10.10 - Alcohol abuse, uncomplicated Status: Acute Assessment and Plan: It is suspected that the patient is going through alcohol withdrawal. Continue with neurological checks and CIWA scores. Continue with Haldol, Ativan, banana bag, Librium, folic acid and thiamin. Patient has had very low CIWA scores and Librium deescalated to a p.r.n. for CIWA greater than 8. (3) Depression with anxiety: Code(s): F41.8 - Other specified anxiety disorders Status: Acute Assessment and Plan: Continue with Ativan. The patient is homeless. And he is estranged from his family. (4) Hypertension: Code(s): I10 - Essential (primary) hypertension Status: Acute Assessment and Plan: His blood pressure is elevated and it could be related to his withdrawal symptoms. P.r.n. hydralazine (5) Hyperlipidemia: Code(s): E78.5 - Hyperlipidemia, unspecified Status: Acute Assessment and Plan: The patient takes no medication at this time. (6) Tobacco abuse: Code(s): Z72.0 - Tobacco use Status: Acute Assessment and Plan: I offered him a nicotine patch and nicotine gum. The patient stated that he wants to leave to smoke a cigarette. I explained to him that that we have a no smoking policy. Smoking cessation education will be given to the patient. DS: Summary Hospital Course Hospital Course: Patient is a 47-year-old male with a past medical history of seizures, alcohol dependence and abuse, stroke, bipolar disorder who presented to the ED with complaints of a witnessed seizure. It was noticed that the patient was having a tonic clonic seizure at a local truck about an EMS was called. Patient does have known seizures order however does not really take his medications and is homeless. Patient also does partake in alcohol abuse and does drink every day. Upon arrival head CT was performed and showed no acute intracranial abnormality. EEG was done showed no abnormalities. Patient was started on thiamine, folic acid, and Librium. Patient has been restarted on his Keppra at 1000 mg twice a day. CIWA scores have been on trend and have been stable. Patient currently feels well and would like to be discharged at this time. He currently denies any chest pain, shortness a breath, nausea, vomiting, diarrhea or constipation. Spoke with the patient about resources. Patient had been interviewed by a service for possible rehab placement. Neurology also saw the patient. Currently patient is stable for discharge for labs and vital signs. Spoke with the patient at length about drinking cessation along with medication compliance. Patient did verbalize understanding. Status at Discharge Functional status at discharge: independent ambulation Overall status at discharge: patient is progressing back to baseline Time Spent with Patient Time attestation: Total time spent providing and/or coordinating discharge services:48 minutes Time spent: Greater than 30 minutes Specific discharge activities: Diagnostic testing, chart review, developing a treatment plan, education, care coordinati
[2022-07-04] MEDS: FOLIC ACID 1 MG TABLET PO (11:02)
[2022-07-04] MEDS: THIAMINE HCL 100 MG TABLET PO (11:02)
[2022-07-04] MEDS: levETIRAcetam 500 MG TABLET 1000 MG PO (11:02)
[2022-07-04 11:37] LABS: Glucose Point of Care 104 mg/dl (65-105)
== END 2022-07-04 14:20 | disposition home or self-care (01) ==
LOC: ANHED 14:42 → ANH3MEDSUR 18:26
PROVIDERS: Emergency Medicine; Internal Medicine Critical Care Medicine; Nurse Practitioner; Admitting Provider Family Medicine; Emergency Provider Emergency Medicine; Visit Provider Chiropractor
DX: R56.9 Unspecified convulsions (principal); F10.20 Alcohol dependence, uncomplicated; Y90.0 Blood alcohol level of less than 20 mg/100 ml; F41.8 Other specified anxiety disorders; I10 Essential (primary) hypertension; E78.5 Hyperlipidemia, unspecified; R22.0 Localized swelling, mass and lump, head; D64.9 Anemia, unspecified; Z59.00 Homelessness unspecified; F17.210 Nicotine dependence, cigarettes, uncomplicated; Z86.73 Personal history of transient ischemic attack (TIA), and cerebral infarction without residual deficits; Z79.899 Other long term (current) drug therapy
CPT/HCPCS: 36415; 70450; 71045; 80053; 80307; 81001; 82948; 83605; 83735; 84443; 85025; 85027; 92523; 95816; 96361; 96365; 96367; 96374; 96375; 96376; 97161; 97165; 97530; 99285; A9270; G0378; G0379; J1953; J2060; J3411; J3475; J7030

== ENCOUNTER 2022-07-18 12:34 | Emergency (ER) | payer OTHER, SELFPAY ==
--- NOTE | ~2022-07-18 | XR_ITS ---
EXAMINATION: XR ribs RT 2V w CXR 2V DATE: 07/18/2022 14:22 INDICATION: Right rib pain. Fall. TECHNIQUE: Frontal and lateral views of the chest and 2 views on 3 radiographs of the right ribs were obtained. COMPARISON: Chest single view 07/01/2022 FINDINGS: CHEST TWO VIEWS: There is no pneumonia, pleural effusion, pneumothorax. The heart size is normal. The re are old healed rib fractures bilaterally. There is an old healed fracture of right clavicle. There are mild chronic compression fractures at 2 levels in thoracic spine. RIGHT RIBS: There is a fracture of right seventh rib that may be acute. IMPRESSION: 1. Fracture of right seventh rib that may be acute. 2. Old healed bilateral rib fractures. Reviewed, dictated and finalized at location A.
[2022-07-18 12:46] VITALS: BP 131/93; PULSE 94; RESP 16; O2SAT 94
--- NOTE | 2022-07-18 13:30 | PC.NURSE ---
edp found pt drinking 16 oz beer in room
--- NOTE | 2022-07-18 14:05 | PC.NURSE ---
pt sleeping soundly on stretcher. no distress noted.
--- NOTE | 2022-07-18 15:28 | ED.FALL ---
HPI - Fall General Chief Complaint: Fall Stated Complaint: fall Time Seen by Provider: 07/18/22 12:36 History of Present Illness HPI Narrative: Patient is a 47-year-old homeless male who presents ER with right-sided rib pain. He reports he tripped over his shoelace falling onto his right side. He has history of broken ribs in the past and feels as if he may have fractured another 1. No difficulty breathing but has pain with deep breath and twisting. No hemoptysis. No fevers or chills or sweats. He did not strike his head or lose consciousness. Related Data Allergies Allergy/AdvReac Type Severity Reaction Status Date / Time No Known Allergies Allergy Verified 02/19/22 01:11 Review of Systems Review of Systems: All systems reviewed & are unremarkable except as noted in HPI and below Constitutional: Constitutional: Denies chills, Denies fatigue and Denies fever(s) ENT: Denies nasal congestion and Denies sore throat Cardiovascular: Cardiovascular: Reports chest pain (Chest wall) and Denies radiating jaw, neck or arm pain Respiratory: Respiratory: Denies cough and Denies dyspnea Gastrointestinal: Gastrointestinal: Denies abdominal pain, Denies nausea and Denies vomiting PMFSH Past Medical History Medical History (Updated 07/18/22 @ 15:39 by Ferny Borden MD) Alcoholism Amputation of one or more toes great toe on the right and the second and third toe on the right Anxiety Bipolar disorder CVA (cerebral vascular accident) Depression with anxiety Hyperlipidemia Hypertension Seizures Tobacco abuse Surgical History Surgical History (Updated 07/01/22 @ 15:22 by Renay Aaron NP) History of appendectomy Family History Family History (Updated 07/01/22 @ 15:25 by Renay Aaron NP) Father Alcohol abuse Tobacco abuse Social History Social History (Updated 07/01/22 @ 18:38 by Renay Aaron NP) Social History: He continues to smoke 1 1/2 packs of cigarettes a day day. He drinks alcohol but did not quantify. He is estranged from his mother. No children. He is homeless. He denies any illicit drugs. Code status full code Smoking packs per day: 20 Smoking cigarettes per day: 400.0 Smoking status: Current every day smoker Tobacco type: cigarettes Second hand tobacco smoke exposure: Yes Alcohol intake: current Drinks per week: 45 Substance use: never Lack of Transportation: YES Lack of Food: Often True Current Housing: I Do Not Have Housing Concerned About Future Housing: YES Difficulty Paying Gas/Electric Bills: YES Difficulty Paying for Meds: YES Currently Unemployed: Decline to Answer Education: Decline to Answer Difficulty w/ Childcare or Family Care: Decline to Answer Spiritual care concerns: No Exam Narrative: GENERAL: Well-appearing, well-nourished, and in no acute distress. HEAD: Normocephalic, atraumatic. ENT: Mucous membranes moist. CHEST: Clear to auscultation. No respiratory distress. Palpation right lateral chest wall. HEART: Regular rate and rhythm. Normal peripheral pulses. ABDOMEN: Soft, nontender, nondistended. EXTREMITIES: Normal range of motion. No edema. SKIN: Warm, dry, no rash. NEURO: Alert and oriented x3. PSYCH: Normal mood and affect. Course Course Emergency Course: Patient resting comfortably. I did take a can of beer from him that he was drinking in the room. Informed of his rib fracture and he will be given some pain medication for home. Vital Signs Vital signs: Vital Signs Pulse Rate 94 07/18/22 12:46 Respiratory Rate 16 07/18/22 12:46 Blood Pressure 131/93 H 07/18/22 12:46 Pulse Oximetry 94 07/18/22 12:46 Oxygen Delivery Room Air 07/18/22 12:46 Pulse Rate 94 07/18/22 12:46 Respiratory Rate 16 07/18/22 12:46 Blood Pressure 131/93 H 07/18/22 12:46 Pulse Oximetry 94 07/18/22 12:46 Oxygen Delivery Room Air 07/18/22 12:46 MDM - Fall Imaging Data Radi
[2022-07-18 15:45] VITALS: BP 123/88; BP 124/92; PULSE 82; RESP 16; O2SAT 97; O2SAT 98
--- NOTE | 2022-07-18 15:51 | PC.NURSE ---
pt states he was discharged too quick
== END 2022-07-18 15:45 | disposition home or self-care (01) ==
PROVIDERS: Emergency Provider Emergency Medicine
DX: S22.31XA Fracture of one rib, right side, initial encounter for closed fracture (principal); E78.5 Hyperlipidemia, unspecified; I10 Essential (primary) hypertension; F17.210 Nicotine dependence, cigarettes, uncomplicated; Z86.73 Personal history of transient ischemic attack (TIA), and cerebral infarction without residual deficits; Z89.411 Acquired absence of right great toe; Z89.421 Acquired absence of other right toe(s); Z59.00 Homelessness unspecified; W18.09XA Striking against other object with subsequent fall, initial encounter
CPT/HCPCS: 71046; 71100; 99283

== ENCOUNTER 2022-12-13 09:49 | Emergency (ER) | payer OTHER, SELFPAY ==
--- NOTE | ~2022-12-13 | CT_ITS ---
EXAMINATION: CT abdomen pelvis w con INDICATION: Abdominal pain and diarrhea TECHNIQUE: Computed tomographic images of the abdomen and pelvis were obtained after the administrati on of 100 cc of Omnipaque 350 intravenous contrast. The dose-length product (DLP) was 448.03 mGy-cm. Automated exposure control and iterative reconstruction technique were employed. COMPARISON: None available FINDINGS: Minimal dependent atelectasis is present in the lung bases. The heart size is normal. The l iver, spleen, pancreas, gallbladder, and adrenal glands are unremarkable. The kidneys are normal. No pathologically enlarged abdominal or pelvic lymph nodes are identified. No free intraperitoneal gas o r evidence of bowel obstruction. The appendix is normal. There is mild distention of the stomach with possible gastric fold thickening. Internal stabilization hardware is present in the proximal left fe mur. There are Schmorl nodes in multiple lower thoracic vertebral bodies. IMPRESSION: 1. Mild distention of the stomach with possible gastric fold thickening, nonspecific. Consider endosc opy. Reviewed, dictated and finalized at location B. IMPRESSION: 1. Mild distention of the stomach with possible gastric fold thickening, nonspe cific. Consider endoscopy.
--- NOTE | ~2022-12-13 | CT_ITS ---
CT head without contrast Indication: Altered mental status COMPARISON: 07/01/2022 Technique: Serial scans were obtained through the brain without the administration of contrast. Dose reduction technique was used on this scan by utilizing automated exposure control and iterative recon struction technique. The dose-length product (DLP) was 908.00 mGy-cm. Findings: There is no evidence of intracranial hemorrhage, mass lesion, or acute infarct. The ventri cles and subarachnoid spaces are dilated, consistent with mild atrophy. There is no evidence of jose e a, mass effect or midline shift. The visualized paranasal sinuses and mastoid air cells are clear. Impression: No intracranial hemorrhage, mass, or acute infarct. Mild generalized atrophy. Reviewed, dictated and finalized at location . Impression: No intracranial hemorrhage, mass, or acute infarct. Mild generalized atrophy.
--- NOTE | ~2022-12-13 | XR_ITS ---
EXAMINATION: XR chest 2V DATE: 12/13/2022 10:31 INDICATION: Weakness TECHNIQUE: AP and lateral views of the chest are obtained. COMPARISON: 07/18/2022 FINDINGS: The lungs are free of acute opacities. No pleural effusion or pneumothorax. The cardiomedia stinal silhouette is normal. There is mild thoracic spondylosis. Multiple healed bilateral rib fractu res are noted. IMPRESSION: 1. No acute cardiopulmonary abnormality. Reviewed, dictated and finalized at location B.
[2022-12-13 09:52] VITALS: BP 110/86; PULSE 97; RESP 23; TEMP 36.7; O2SAT 99
--- NOTE | 2022-12-13 10:02 | ECG_ITS ---
Measurements Intervals [place] Rate: 97 P: 44 [place]: 175 QRS: 49 QRSD: 81 T: 55 QT: 355 QTc: 453 Interpretive Statements SINUS RHYTHM NORMAL ECG COMPARED TO ECG 11/04/2018 06:35:25 NO SIGNIFICANT CHANGES Electronically Signed On 12-13-2022 14:00:37 CDT by Rishabh Miranda M.D.
[2022-12-13 10:17] LABS: Basophils Percent Auto 0.4 % (0.2-1.2); Eosinophils Absolute Auto 0.1 K/mm3 (0-0.3); Eosinophils Percent Auto 1.4 % (0-4.4); Hematocrit 34.4 % (42.0-52.0); Hemoglobin 11.8 g/dL (14.0-18.0); Immature Granulocyte Absolute 0.02 K/mm3 (0.00-0.031); Immature Granulocyte Percent A 0.2 % (0-0.5); Lymphocytes Absolute Auto 0.91 K/mm3 (0.9-3.2); Lymphocytes Percent Auto 10.6 % (18.3-44.2); Mean Corpuscular HGB Conc 34.3 g/dl (32-36); Mean Corpuscular Hemoglobin 32.3 pg (26-34); Mean Corpuscular Volume 94.2 fl (80-100); Mean Platelet Volume 10.3 fl (7.4-10.4); Monocytes Absolute Auto 0.9 K/mm3 (0.1-0.6); Neutrophils Absolute Auto 6.5 K/mm3 (1.3-6.7); Neutrophils Percent Auto 76.4 % (45.5-73.1); Platelet Count Result 159 k/mm3 (150-375); Red Blood Count 3.65 M/mm3 (4.6-6.20); Red Cell Distribution Width 13.7 % (11.5-14.5); White Blood Count 8.6 K/mm3 (4.5-10.0)
[2022-12-13 10:32] LABS: Alanine Aminotransferase 28 U/L (6-50); Albumin Level 3.8 g/dL (3.5-5.1); Alkaline Phosphatase 99 U/L (38-126); Anion Gap 5 mmol/L (8-16); Aspartate Amino Transferase 69 U/L (17-59); Bilirubin,Total 0.9 mg/dL (0.2-1.3); Blood Urea Nitrogen 11 mg/dL (9-20); Calcium 8.3 mg/dL (8.4-10.2); Carbon Dioxide 31 mmol/L (22-30); Chloride 96 mmol/L (98-107); Estimated CRCL calculation 85 ml/min; Estimated Glomerular Filt Rate > 60; Glucose 121 mg/dL (65-110); Potassium 2.7 mmol/L (3.4-5.0); Sodium 132 mmol/L (137-145)
[2022-12-13 11:10] LABS: Ethanol < 10 mg/dL (<10)
--- NOTE | 2022-12-13 11:10 | ED.WEAKNESS ---
HPI - Weakness General Chief complaint: Weakness <China Alva PA-C - Last Filed: 12/13/22 16:14> Stated complaint: gen weak <China Alva PA-C - Last Filed: 12/13/22 16:14> Time Seen by Provider: 12/13/22 10:08 <China Alva PA-C - Last Filed: 12/13/22 16:14> Source: patient <JOHNSON Alonos Last Filed: 12/13/22 16:14> Mode of arrival: EMS <China Alva PA-C - Last Filed: 12/13/22 16:14> Limitations: other (Poor historian) <China Alva PA-C - Last Filed: 12/13/22 16:14> History of Present Illness HPI Narrative: This is a 47-year-old male that presents to the emergency department as he was found laying on the side of the road. Reports some myalgias. He has also had abdominal discomfort and diarrhea the last 5 days. Patient is currently homeless and is not taking any of his chronic medications. Denies fever, chest pain, vomiting or hematochezia. <China Alva PA-C - Last Filed: 12/13/22 16:14> Related Data Allergies/Adverse reactions: Allergies Allergy/AdvReac Type Severity Reaction Status Date / Time No Known Allergies Allergy Verified 12/13/22 10:07 <China Alva PA-C - Last Filed: 12/13/22 16:14> Review of Systems Review of Systems: CONSTITUTIONAL: Denies fever CARDIOVASCULAR: Denies chest pain, or edema. RESPIRATORY: Denies dyspnea. GASTROINTESTINAL: Reports abdominal pain, and diarrhea. Denies nausea or vomiting MUSCULOSKELETAL: Reports myalgia. <China Alva PA-C - Last Filed: 12/13/22 16:14> All systems reviewed & are unremarkable except as noted in HPI and below <China Alva PA-C - Last Filed: 12/13/22 16:14> [facility] Past Medical History Medical History: Medical History (Updated 12/13/22 @ 16:07 by China L. Alva, PA-C) Alcoholism Amputation of one or more toes great toe on the right and the second and third toe on the right Anxiety Bipolar disorder CVA (cerebral vascular accident) Depression with anxiety Hyperlipidemia Hypertension Seizures Tobacco abuse <China Alva PA-C - Last Filed: 12/13/22 16:14> Surgical History Surgical History: Surgical History (Updated 07/01/22 @ 15:22 by Renay Aaron NP) History of appendectomy <China Alva PA-C - Last Filed: 12/13/22 16:14> Family History Family History: Family History (Updated 07/01/22 @ 15:25 by Renay Aaron NP) Father Alcohol abuse Tobacco abuse <China Alva PA-C - Last Filed: 12/13/22 16:14> Social History Social History: Social History (Updated 07/01/22 @ 18:38 by Renay Aaron NP) Social History: He continues to smoke 1 1/2 packs of cigarettes a day day. He drinks alcohol but did not quantify. He is estranged from his mother. No children. He is homeless. He denies any illicit drugs. Code status full code Smoking packs per day: 20 Smoking cigarettes per day: 400.0 Smoking status: Current every day smoker Tobacco type: cigarettes Second hand tobacco smoke exposure: Yes Alcohol intake: current Drinks per week: 45 Substance use: never Lack of Transportation: YES Lack of Food: Often True Current Housing: I Do Not Have Housing Concerned About Future Housing: YES Difficulty Paying Gas/Electric Bills: YES Difficulty Paying for Meds: YES Currently Unemployed: Decline to Answer Education: Decline to Answer Difficulty w/ Childcare or Family Care: Decline to Answer Spiritual care concerns: No <China Alva PA-C - Last Filed: 12/13/22 16:14> Exam Narrative: GENERAL: Disheveled, well-nourished, and in no acute distress. HEAD: Normocephalic, atraumatic. EYES: PERRLA and EOMI. ENT: Nares clear, no rhinorrhea or epistaxis. Mucous membranes dry. Oropharynx without tonsillar hypertrophy exudate or other lesions. Bilateral TMs pearly luo non-bulging NECK: Supple. No adenopathy or masses. CHEST: Clear to auscultation. No respiratory distres
[2022-12-13] MEDS: POTASSIUM CHLORIDE INJ 40 MEQ in SODIUM CHLORIDE 0.9% IV 500 ML 130 MEQ IVPB (11:11)
[2022-12-13] MEDS: POTASSIUM CHLORIDE 20 MEQ PACKET (FOR LIQUID) 40 MEQ PO (11:18)
[2022-12-13] MEDS: SODIUM CHLORIDE 0.9% IV 1,000 ML 999 ML IV CONT (11:20)
[2022-12-13 12:33] LABS: Appearance Urine Clear (Clear); Bilirubin Urine Negative (Negative); Blood Urine Negative (Negative); Color Urine Yellow (Yellow); Glucose Urine UA Negative (Negative); Ketones Urine Trace mg/dL (Negative); Leukocyte Esterase Ur Negative LEU/UL (Negative); Nitrate Urine Negative (Negative); Protein Urine Negative (Negative)
[2022-12-13 12:37] LABS: Add Urine Microscopic? NO; Specific Grav Ur 1.042 (1.001-1.035)
[2022-12-13 13:19] LABS: Creatine Kinase 420 U/L (55-170)
[2022-12-13 14:10] VITALS: BP 119/89; PULSE 78; RESP 18; O2SAT 96
--- NOTE | 2022-12-13 14:38 | PC.NURSE ---
Pt found walking around ER by unit operator. Escorted to bathroom by tech. Pt found to have pulled out his IV.
[2022-12-13 15:12] LABS: Potassium 3.8 mmol/L (3.4-5.0)
[2022-12-13 16:19] LABS: Amphetamine Screen Urine Negative (Negative); Barbiturate Screen Urine Negative (Negative); Benzodiazepines Screen Urine Negative (Negative); Cannabinoid Screen Urine Negative (Negative); Cocaine Screen Urine Negative (Negative); Methadone Screen Urine Negative (Negative); Opiate Screen Urine Negative (Negative); Phencyclidine Screen Urine Negative (Negative)
[2022-12-13 16:39] VITALS: BP 120/68; PULSE 72; RESP 19; O2SAT 99
== END 2022-12-13 16:25 | disposition home or self-care (01) ==
PROVIDERS: Emergency Medicine; Emergency Provider Physician Assistant
DX: K29.00 Acute gastritis without bleeding (principal); E87.6 Hypokalemia; I10 Essential (primary) hypertension; E78.5 Hyperlipidemia, unspecified; F17.210 Nicotine dependence, cigarettes, uncomplicated; Z86.73 Personal history of transient ischemic attack (TIA), and cerebral infarction without residual deficits; Z89.411 Acquired absence of right great toe; Z89.421 Acquired absence of other right toe(s); Z59.00 Homelessness unspecified; G31.9 Degenerative disease of nervous system, unspecified
CPT/HCPCS: 36415; 70450; 71046; 74177; 80053; 80307; 81003; 82550; 84132; 85025; 93005; 96365; 96366; 99284; A9270; J3480; J7030; J7040; Q9967

== ENCOUNTER 2023-11-24 05:54 | Emergency (ER) | payer OTHER, SELFPAY ==
[2023-11-24 05:56] VITALS: BP 120/54; PULSE 103; RESP 22; TEMP 36.8; O2SAT 99
--- NOTE | 2023-11-24 07:25 | ED.GENADULT ---
HPI - General Adult General Chief complaint: Anxiety Stated complaint: ANXIETY ATTACK Time Seen by Provider: 11/24/23 07:00 History of Present Illness HPI narrative: Is a 48-year-old homeless male presenting for an anxiety attack. Patient states that he has had 18 anxiety attacks in the past. Said this 1 felt similar where he became very anxious his heart started pounding in his arm went numb. He states that he is feeling much better now. Patient has been in and out of different nursing homes throughout the same was area but has been his own the last 3 days. He denies SI HI. He is requesting food and another wrap on his foot. No other complaints Related Data Allergies Allergy/AdvReac Type Severity Reaction Status Date / Time No Known Allergies Allergy Verified 11/24/23 06:09 [facility] Past Medical History Medical History (Updated 11/24/23 @ 07:28 by Momo Lala MD) Alcoholism Amputation of one or more toes great toe on the right and the second and third toe on the right Anxiety Bipolar disorder CVA (cerebral vascular accident) Depression with anxiety Hyperlipidemia Hypertension Seizures Tobacco abuse Surgical History Surgical History (Updated 07/01/22 @ 15:22 by Renay Aaron NP) History of appendectomy Family History Family History (Updated 07/01/22 @ 15:25 by Renay Aaron NP) Father Alcohol abuse Tobacco abuse Social History Social History (Updated 07/01/22 @ 18:38 by Renay Aaron NP) Social History: He continues to smoke 1 1/2 packs of cigarettes a day day. He drinks alcohol but did not quantify. He is estranged from his mother. No children. He is homeless. He denies any illicit drugs. Code status full code Smoking packs per day: 20 Smoking cigarettes per day: 400.0 Smoking status: Current every day smoker Tobacco type: cigarettes Second hand tobacco smoke exposure: Yes Alcohol intake: current Drinks per week: 45 Substance use: never Lack of Transportation: YES Lack of Food: Often True Current Housing: I Do Not Have Housing Concerned About Future Housing: YES Difficulty Paying Gas/Electric Bills: YES Difficulty Paying for Meds: YES Currently Unemployed: Decline to Answer Education: Decline to Answer Difficulty w/ Childcare or Family Care: Decline to Answer Spiritual care concerns: No Exam Narrative: APPEARANCE: No apparent distress. Head: atraumatic. EYES: EOMI, NOSE: Atraumatic NECK: Trachea midline RESPIRATORY: No increased rate of breathing, CTAB CARDIOVASCULAR: RRR, ABDOMINAL: Non-distended MUSCULOSKELETAl: Partial amputation to the right foot, well-healed with no signs of infection. Multiple partial amputations the left hand NEURO: Alert. Moving 4/4 extremities SKIN:: Warm, dry. Normal color PSYCHIATRIC: Normal affect Course Vital Signs Vital signs: Vital Signs Temperature 98.2 F 11/24/23 05:56 Pulse Rate 103 H 11/24/23 05:56 Respiratory Rate 22 H 11/24/23 05:56 Blood Pressure 120/54 L 11/24/23 05:56 Pulse Oximetry 99 11/24/23 05:56 Oxygen Delivery Room Air 11/24/23 05:56 Temperature 98.2 F 11/24/23 05:56 Pulse Rate 103 H 11/24/23 05:56 Respiratory Rate 22 H 11/24/23 05:56 Blood Pressure 120/54 L 11/24/23 05:56 Pulse Oximetry 99 11/24/23 05:56 Oxygen Delivery Room Air 11/24/23 05:56 Medical Decision Making MDM Narrative Medical decision making narrative: -Course: Homeless male presenting after anxiety attack. His symptoms have resolved. He was given food and his foot was rewrapped. Patient discharged with a list of homeless shelters. -DDX includes but is not limited to: Homelessness, anxiety, malingering, alcohol intoxication -Shared decision making / Disposition: Discharged Vital Signs Vital Signs: Vital Signs Temperature 98.2 F 11/24/23 05:56 Pulse Rate 103 H 11/24/23 05:56 Respiratory Rate 22 H 11/24/23 05:56 Blood Pressure 120
[2023-11-24 08:51] VITALS: BP 144/91; PULSE 80; RESP 16; O2SAT 100
--- NOTE | 2023-11-24 09:08 | PCCCNOTE ---
908-Security came to [facility] requesting a bus token for the pt hanging out around the ED entrance. Stated he just needed a ride to the closest gas station. One token give for [facility] as requested.-olga.
== END 2023-11-24 08:52 | disposition home or self-care (01) ==
LOC: ANHED 07:35
PROVIDERS: Emergency Provider Emergency Medicine
DX: F41.9 Anxiety disorder, unspecified (principal); F31.9 Bipolar disorder, unspecified; Z59.00 Homelessness unspecified; G40.909 Epilepsy, unspecified, not intractable, without status epilepticus; Z89.421 Acquired absence of other right toe(s); Z86.73 Personal history of transient ischemic attack (TIA), and cerebral infarction without residual deficits; F17.210 Nicotine dependence, cigarettes, uncomplicated
CPT/HCPCS: 99283

== ENCOUNTER 2023-12-03 | Emergency (ER) | payer OTHER, SELFPAY ==
[2023-12-03 00:03] VITALS: BP 160/98; PULSE 101; RESP 16; TEMP 36.3; O2SAT 99
--- NOTE | 2023-12-03 01:34 | ED.ANXIETY ---
HPI - Anxiety General Chief Complaint: Anxiety Stated Complaint: anxiety related to health issue Time Seen by Provider: 12/03/23 01:26 History of Present Illness HPI narrative: 48-year-old male with history of homelessness presents to the emergency department via EMS for anxiety. Patient states he was having anxiety attack because he is thinking about his foot that got frostbite in 2022. Upon arrival he is complaining of his ears popping. He is requesting a meal, water and a pillow. Denies is or HI. Denies drug use. States he had a 24 oz can of beer several hours ago. No other complaints. Related Data Allergies Allergy/AdvReac Type Severity Reaction Status Date / Time No Known Allergies Allergy Verified 12/03/23 00:03 Review of Systems Review of Systems: All systems reviewed & are unremarkable except as noted in HPI and below PMFSH Past Medical History Medical History Alcoholism Amputation of one or more toes great toe on the right and the second and third toe on the right Anxiety Bipolar disorder CVA (cerebral vascular accident) Depression with anxiety Hyperlipidemia Hypertension Seizures Tobacco abuse Surgical History Surgical History History of appendectomy Family History Family History Father Alcohol abuse Tobacco abuse Social History Social History Social History: He continues to smoke 1 1/2 packs of cigarettes a day day. He drinks alcohol but did not quantify. He is estranged from his mother. No children. He is homeless. He denies any illicit drugs. Code status full code Smoking packs per day: 20 Smoking cigarettes per day: 400.0 Smoking status: Current every day smoker Tobacco type: cigarettes Second hand tobacco smoke exposure: Yes Alcohol intake: current Drinks per week: 45 Substance use: never Lack of Transportation: YES Lack of Food: Often True Current Housing: I Do Not Have Housing Concerned About Future Housing: YES Difficulty Paying Gas/Electric Bills: YES Difficulty Paying for Meds: YES Currently Unemployed: Decline to Answer Education: Decline to Answer Difficulty w/ Childcare or Family Care: Decline to Answer Spiritual care concerns: No Exam Narrative: GENERAL: no acute distress. HEAD: Normocephalic, atraumatic. EYES:EOMI. ENT: Nares clear, no rhinorrhea or epistaxis. Mucous membranes moist. Bilateral cerumen impaction NECK: Supple. CHEST: Clear to auscultation. No respiratory distress. HEART: Regular rate and rhythm. EXTREMITIES: Multiple partial amputations of the left hand SKIN: Warm, dry, no rash. NEURO: No focal deficits. Alert and oriented x3 Course Vital Signs Vital signs: Vital Signs Temperature 97.3 F L 12/03/23 00:03 Pulse Rate 101 H 12/03/23 00:03 Respiratory Rate 16 12/03/23 00:03 Blood Pressure 160/98 H 12/03/23 00:03 Pulse Oximetry 99 12/03/23 00:03 Oxygen Delivery Room Air 12/03/23 00:03 Temperature 97.3 F L 12/03/23 00:03 Pulse Rate 101 H 12/03/23 00:03 Respiratory Rate 16 12/03/23 00:03 Blood Pressure 160/98 H 12/03/23 00:03 Pulse Oximetry 99 12/03/23 00:03 Oxygen Delivery Room Air 12/03/23 00:03 MDM - Anxiety MDM Narrative Medical decision making narrative: 48-year-old male with history of homelessness presents to the emergency department via EMS for anxiety. Patient admits to having anxiety about his prior frostbite to his right foot in 2022. When I asked the patient what I can do for him, he request a meal, water and pillow. He denies SI or HI. He has no other complaints. Vitals her with mild tachycardia 101. He is afebrile nontoxic-appearing. Patient discharged stable condition with a list for homeless shelters. Aj
--- NOTE | 2023-12-03 01:35 | PC.NURSE ---
pt to ED with multiple complaints including anxiety numbness of right foot. Pt states he had frostbite in January had his foot has been injured since. Pt refused to take off coat so that a BP cuff could be applied. Pulse ox applied to pt. Pts only requests at this time are a pillow and water, pt given water and pillow. Provider notified
[2023-12-03 01:38] VITALS: PULSE 93; RESP 20; O2SAT 97
== END 2023-12-03 02:35 | disposition home or self-care (01) ==
LOC: ANHED 01:43
PROVIDERS: Emergency Provider Physician Assistant
DX: F41.9 Anxiety disorder, unspecified (principal); F17.210 Nicotine dependence, cigarettes, uncomplicated; Z59.00 Homelessness unspecified; F32.A Depression, unspecified; G40.909 Epilepsy, unspecified, not intractable, without status epilepticus; I10 Essential (primary) hypertension; Z86.73 Personal history of transient ischemic attack (TIA), and cerebral infarction without residual deficits; E78.5 Hyperlipidemia, unspecified
CPT/HCPCS: 99282

== ENCOUNTER 2023-12-03 05:32 | Emergency (ER) | payer OTHER, SELFPAY ==
[2023-12-03 05:36] VITALS: BP 150/92; PULSE 123; RESP 19; TEMP 36.8; O2SAT 99
--- NOTE | 2023-12-03 07:03 | ED.GENADULT ---
HPI - General Adult General Chief complaint: Extremity Problem,Nontraumatic Stated complaint: Right foot pain Time Seen by Provider: 12/03/23 06:56 History of Present Illness HPI narrative: 48-year-old homeless male presenting to ED for the 2nd time today. He was seen earlier and discharged. The police then picked him up and brought him back to our hospital. His only complaint is right foot pain. Patient had a partial amputation performed at an outside hospital. Patient says that he is supposed to be taking oxycodone and Percocet for his pain. But he does not have any so he has not been taking anything. No other symptoms. Related Data Allergies Allergy/AdvReac Type Severity Reaction Status Date / Time No Known Allergies Allergy Verified 12/03/23 05:33 [facility] Past Medical History Medical History Alcoholism Amputation of one or more toes great toe on the right and the second and third toe on the right Anxiety Bipolar disorder CVA (cerebral vascular accident) Depression with anxiety Hyperlipidemia Hypertension Seizures Tobacco abuse Surgical History Surgical History History of appendectomy Family History Family History Father Alcohol abuse Tobacco abuse Social History Social History Social History: He continues to smoke 1 1/2 packs of cigarettes a day day. He drinks alcohol but did not quantify. He is estranged from his mother. No children. He is homeless. He denies any illicit drugs. Code status full code Smoking packs per day: 20 Smoking cigarettes per day: 400.0 Smoking status: Current every day smoker Tobacco type: cigarettes Second hand tobacco smoke exposure: Yes Alcohol intake: current Drinks per week: 45 Substance use: never Substance use type: does not use Lack of Transportation: YES Lack of Food: Often True Current Housing: I Do Not Have Housing Concerned About Future Housing: YES Difficulty Paying Gas/Electric Bills: YES Difficulty Paying for Meds: YES Currently Unemployed: Decline to Answer Education: Decline to Answer Difficulty w/ Childcare or Family Care: Decline to Answer Spiritual care concerns: No Exam Narrative: APPEARANCE: No apparent distress. Patient is sleeping prone in the bed, Malodorous Head: atraumatic. EYES: EOMI, NOSE: Atraumatic NECK: Trachea midline RESPIRATORY: No increased rate of breathing clear to auscultation CARDIOVASCULAR: RRR, no peripheral edema ABDOMINAL: Non-distended MUSCULOSKELETAl: Partial amputation of the right foot, wound is healing well with no evidence infection or cellulitis NEURO: Alert. Moving 4/4 extremities SKIN:: Warm, dry. Normal color PSYCHIATRIC: Normal affect Course Vital Signs Vital signs: Vital Signs Temperature 98.2 F 12/03/23 05:36 Pulse Rate 123 H 12/03/23 05:36 Respiratory Rate 19 12/03/23 05:36 Blood Pressure 150/92 H 12/03/23 05:36 Pulse Oximetry 99 12/03/23 05:36 Oxygen Delivery Room Air 12/03/23 05:36 Temperature 98.2 F 12/03/23 05:36 Pulse Rate 123 H 12/03/23 05:36 Respiratory Rate 19 12/03/23 05:36 Blood Pressure 150/92 H 12/03/23 05:36 Pulse Oximetry 99 12/03/23 05:36 Oxygen Delivery Room Air 12/03/23 05:36 Medical Decision Making MDM Narrative Medical decision making narrative: -Course: 48-year-old homeless male presenting for foot pain. He is requesting oxycodone and Percocet. On exam his foot is healing well. No further action needed. Patient discharged. -DDX includes but is not limited to: Homelessness, malingering, cellulitis soft tissue infection -Co-morbidities complicating care: Homelessness, alcoholism -Social determinants of health: Homeless, -External Chart Review: Review of previous
== END 2023-12-03 07:27 | disposition home or self-care (01) ==
PROVIDERS: Emergency Provider Emergency Medicine
DX: Z76.5 Malingerer [conscious simulation] (principal); Z59.00 Homelessness unspecified; I10 Essential (primary) hypertension; E78.5 Hyperlipidemia, unspecified; F41.8 Other specified anxiety disorders; F31.9 Bipolar disorder, unspecified; Z86.73 Personal history of transient ischemic attack (TIA), and cerebral infarction without residual deficits; Z89.411 Acquired absence of right great toe; Z89.421 Acquired absence of other right toe(s); Z79.899 Other long term (current) drug therapy
CPT/HCPCS: 99282; L0140

== ENCOUNTER 2023-12-03 08:17 | Emergency (ER) | payer OTHER, SELFPAY ==
[2023-12-03] VITALS (52 sets, daily range): BP systolic 112–199; BP diastolic 78–123; PULSE 105–137; RESP 13–30; TEMP 36.6; O2SAT 90–100
--- NOTE | ~2023-12-03 | CT_ITS ---
CT brain wo con Ordering provider: Momo Lala MD History: 48 years Male with . Fall . Comparison: None. Technique: CT of the head without contrast. Radiation reduction technique utilized.The dose-length product was 908 mGy-cm. FINDINGS: BRAIN PARENCHYMA AND CSF SPACES: Mild leukoaraiosis and diffuse cortical atrophy. Mild atheromatous d isease. No midline shift, mass effect or hemorrhage. The brain parenchyma and CSF spaces are otherwise norm al. VISUALIZED PARANASAL SINUSES: Right sphenoid sinus disease. MASTOIDS: Well aerated. BONES: The bones appear intact. SOFT TISSUES: Visualized nasopharynx is normal. Right and left parietal scalp hematoma. Otherwise, S uperficial soft tissues are normal. IMPRESSION: No acute intracranial findings. Reviewed, dictated and finalized at location A.
--- NOTE | ~2023-12-03 | CT_ITS ---
CT facial & cervical spine wo Ordering provider: Momo Lala MD History: . Fall . Comparison: None. Technique: Thin slice axial CT of the facial bones was performed without contrast. Coronal and sagit marilin reformatted images were also obtained. . Automated exposure control and iterative reconstruction technique were employed. The dose-length product was 267.10 mGy-cm. FINDINGS: PARANASAL SINUSES: Bilateral maxillary and sphenoid sinus disease. BONES: Left nasal bone fracture. Clinical correlation advised.. Dental cares seen in multiple teeth. ORBITS AND SUPERFICIAL SOFT TISSUES: The optic globes and orbits are normal. The superficial soft tis sues are normal. VISUALIZED MASTOIDS: Well aerated. LIMITED VISUALIZED BRAIN PARENCHYMA: Normal. IMPRESSION: Left nasal bone fracture. CT facial & cervical spine wo Ordering provider: Momo Lala MD History: . Fall . Comparison: None. Technique: CT of the cervical spine was performed without contrast. Sagittal and coronal reformatted images were also obtained and reviewed. Automated exposure control and iterative reconstruction janusz hnique were employed. The dose-length product was 267.10 mGy-cm. FINDINGS: VERTEBRAE: Fracture spinous processes of C6 on C7 and T1 which may be acute or chronic but most likel y chronic. Clinical correlation advised. No other subluxation or acute fracture. The occipital condyl es are intact. Bifid C1 posterior arch is noted. Fracture is less likely DISC SPACES: Normal. Multilevel facet joint disease. Narrowing of the right foramen at the level of C 3-C4. PARASPINOUS SOFT TISSUES: Normal. IMPRESSION: Fracture of spinous processes of C6, C7 and T1. Most likely chronic but can't be excluded. Clinical c orrelation advised. Bifid C1 posterior arch. Reviewed, dictated and finalized at location A. IMPRESSION: Left nasal bone fracture. CT facial & cervical spine wo Ordering provider: Momo Lala MD History: . Fall . Comparison: None. Technique: CT of the cervical spine was performed without contrast. Sagittal a nd coronal reformatted images were also obtained and reviewed. Automated expos ure control and iterative reconstruction technique were employed. The dose-sivakumar th product was 267.10 mGy-cm. FINDINGS: VERTEBRAE: Fracture spinous processes of C6 on C7 and T1 which may be acute or chronic but most likely chronic. Clinical correlation advised. No other subluxa tion or acute fracture. The occipital condyles are intact. Bifid C1 posterior arch is noted. Fracture is less likely DISC SPACES: Normal. Multilevel facet joint disease. Narrowing of the right for amen at the level of C3-C4. PARASPINOUS SOFT TISSUES: Normal. IMPRESSION: Fracture of spinous processes of C6, C7 and T1. Most likely chronic but can't b e excluded. Clinical correlation advised. Bifid C1 posterior arch.
--- NOTE | ~2023-12-03 | XR_ITS ---
XR chest ET placement Ordering provider: Momo Lala MD History: 48 years Male with . ET TUBE PLACEMENT . Comparison: December 13, 2022 FINDINGS: MEDIASTINUM: The cardiac silhouette is not enlarged. Endotracheal tube with the tip about 4.9 cm abov e the ameya. Nasogastric tube with the tip in the stomach. Congestive srikanth. LUNGS: No infiltrates, effusions or pneumothorax. OTHER: No free air under the diaphragm. Healing rib fractures in the left mid thorax. IMPRESSION: No acute cardiopulmonary pathology. Reviewed, dictated and finalized at location A.
--- NOTE | ~2023-12-03 | XR_ITS ---
Right foot Technique: AP, oblique, and lateral views were obtained. Clinical History: Pain Findings: Status post transmetatarsal amputation of the foot at the base of the metatarsals. There is an old, healed fracture of the distal tibia with tibial intramedullary vira and distal locking screws present. Probable chronic healed fracture deformity of the calcaneus. There is probable probable chr onic fracture fragment medially, uncertain donor site. No definite acute fracture seen. No definite e vidence for osteitis. Soft tissues are unremarkable.. Impression: No definite acute abnormality. Chronic findings, as above, including healed tibial fracture, probable healed calcaneal fracture, and transmetatarsal amputation of the foot. Reviewed, dictated and finalized at location M. Impression: No definite acute abnormality. Chronic findings, as above, including healed tibial fracture, probable healed c alcaneal fracture, and transmetatarsal amputation of the foot.
--- NOTE | ~2023-12-03 | XR_ITS ---
XR abdomen gastric tube insert Ordering provider: Momo Lala MD History: . OG TUBE PLACEMENT . Comparison: None. FINDINGS: Nasogastric tube with the tip of projected over the fundus of the stomach. BOWEL: Nonobstructive bowel gas pattern. ORGANOMEGALY: None. SIGNIFICANT PATHOLOGIC CALCIFICATIONS: None. OTHER: No free air is seen under the diaphragm. IMPRESSION: NO ACUTE ABDOMINAL FINDINGS. Nasogastric tube with the tip projected over the stomach. Reviewed, dictated and finalized at location A.
--- NOTE | ~2023-12-03 | XR_ITS ---
EXAMINATION: XR pelvis 1-2V DATE: 12/03/2023 09:51 INDICATION: Fall TECHNIQUE: An anteroposterior view of the pelvis was obtained. COMPARISON: CT dated 12/13/2022 FINDINGS: Old healed intratrochanteric fracture of the proximal left femur which is fixed with an incompletely visualized antegrade intramedullary vira with pair of femoral neck screws and a subtrochanteric cercl age wire. There is large amount of heterotopic ossification about the intratrochanteric and subtrocha nteric left femur as well as some additional heterotopic ossification about the cephalad tip of the g reater trochanter. No acute fractures identified. Mild bilateral hip and sacroiliac osteoarthritis. M ultiple phleboliths in the pelvis. IMPRESSION: 1. Chronic internally fixed intertrochanteric fracture the proximal femur. No acute osseous abnormali ty. Reviewed, dictated and finalized at location A. IMPRESSION: 1. Chronic internally fixed intertrochanteric fracture the proximal femur. No a cute osseous abnormality.
--- NOTE | 2023-12-03 08:24 | ECG_ITS ---
Test Date: 2023-12-03 08:26:54 Measurements Intervals [place] Rate: 129 P: 0 HI: 0 QRS: 48 QRSD: 77 T: 63 QT: 293 QTc: 431 Interpretive Statements SINUS TACHYCARDIA NONSPECIFIC T-WAVE ABNORMALITY ABNORMAL ECG No previous ECG available for comparison Electronically Signed On 12-03-2023 14:00:14 CDT by Rishabh Miranda M.D.
[2023-12-03] MEDS: LORazepam INJ (*CRX) 2 MG/ML VIAL (08:34)
[2023-12-03] MEDS: SODIUM CHLORIDE 0.9% IV 2,000 ML 999 ML IV CONT (08:34)
[2023-12-03 08:36] LABS: Glucose Point of Care 168 mg/dl (65-105)
--- NOTE | 2023-12-03 08:48 | PC.NURSE ---
Called pharmacy to send KEPPRA. Pharmacist stated it will be ready in a few minutes
--- NOTE | 2023-12-03 08:48 | PC.NURSE ---
Verbal order per Dr. Lala 2mg Ativan for seizure activity can repeat X1
[2023-12-03] MEDS: LORazepam INJ (*CRX) 2 MG/ML VIAL IV PUSH (08:50)
[2023-12-03 09:00] LABS: Basophils Absolute Auto 0.1 K/mm3 (0.0-0.1); Basophils Percent Auto 0.5 % (0.2-1.2); Eosinophils Absolute Auto 0.1 K/mm3 (0-0.3); Eosinophils Percent Auto 0.9 % (0-4.4); Hematocrit 41.8 % (42.0-52.0); Immature Granulocyte Absolute 0.07 K/mm3 (0.00-0.031); Immature Granulocyte Percent A 0.5 % (0-0.5); Lymphocytes Percent Auto 18.9 % (18.3-44.2); Mean Corpuscular HGB Conc 31.1 g/dl (32-36); Mean Corpuscular Hemoglobin 28.8 pg (26-34); Mean Corpuscular Volume 92.7 fl (80-100); Mean Platelet Volume 9.7 fl (7.4-10.4); Monocytes Absolute Auto 0.7 K/mm3 (0.1-0.6); Monocytes Percent Auto 5.4 % (2.6-8.5); Neutrophils Absolute Auto 10.1 K/mm3 (1.3-6.7); Neutrophils Percent Auto 73.8 % (45.5-73.1); Platelet Count Result 339 k/mm3 (150-375); Red Blood Count 4.51 M/mm3 (4.6-6.20); Red Cell Distribution Width 18.8 % (11.5-14.5); White Blood Count 13.7 K/mm3 (4.5-10.0)
[2023-12-03] MEDS: DEXTROSE 5% IVPB (09:08)
[2023-12-03] MEDS: LEVETIRACETAM IVPB (09:08)
[2023-12-03 09:10] LABS: INR 1.1; Prothrombin Time 14.8 Seconds (11.1-14.7)
[2023-12-03 09:11] LABS: Partial Thromboplastin Time 23.2 Seconds (22.3-36.8)
[2023-12-03 09:15] LABS: Alanine Aminotransferase 24 U/L (6-50); Albumin Level 4.7 g/dL (3.5-5.1); Alkaline Phosphatase 211 U/L (38-126); Anion Gap 29 mmol/L (4-12); Aspartate Amino Transferase 55 U/L (17-59); Bilirubin,Total 0.4 mg/dL (0.2-1.3); Blood Urea Nitrogen 6 mg/dL (9-20); Calcium 8.3 mg/dL (8.4-10.2); Carbon Dioxide 10 mmol/L (22-30); Chloride 101 mmol/L (98-107); Creatine Kinase 209 U/L (55-170); Estimated CRCL calculation 105 ml/min; Estimated Glomerular Filt Rate > 60; Glucose 123 mg/dL (65-110); Lipase 274 U/L (23-300); Magnesium 1.9 mg/dL (1.6-2.3); Phosphorus 4.3 mg/dL (2.5-4.5); Potassium 3.5 mmol/L (3.4-5.0); Sodium 140 mmol/L (137-145)
[2023-12-03] MEDS: RAPID SEQUENCE INTUBATION KIT 1 EACH (09:19)
[2023-12-03] MEDS: PHENobarbitaL sodium (*CRX) 130 MG/ML VIAL 500 MG IV PUSH ×2 (09:24→10:43)
[2023-12-03] MEDS: PROPOFOL IV EMULSION 100 ML 5 MG (09:28)
--- NOTE | 2023-12-03 09:37 | PC.NURSE ---
pt prepared for intubation. crash cart in room, pads applied to pt, all other needed supplies to room. RT at bedside along with Dr. Lala. 0919 100 Rocuronium given 0919 20 Etomidate given 0921 Tube placed, 23 at the lip pt Sp02 99% 0924 20 Valium given and 500mg Phenobarbital 0925 pt vitals taken HR145, R18, BP170/104 Sp02 100% 0928 verbal order for Propofol drip at 5ml/hr and order for soft wrist restraints 0928 OG placed at 65, verified with xray 0928 arreola inserted 0931 HR136 R13 BP160/97 Sp02 99%
[2023-12-03 09:44] LABS: Thyroid Stimulating Hormone Reflex 0.936 uIU/mL (0.465-4.68)
[2023-12-03] MEDS: diazePAM INJ (*CRX) 10 MG/2 ML SYRINGE 20 MG (09:53)
[2023-12-03 09:56] LABS: Acetaminophen < 10 ug/mL (10-30); Ethanol < 10 mg/dL (<10)
--- NOTE | 2023-12-03 10:07 | PC.NURSE ---
VRBO from Dr. Lala to increase propofol drip to 50mcg. HR131 BP186/112 R17 [id number]
[2023-12-03 10:13] LABS: Add Urine Microscopic? NO; Appearance Urine Clear (Clear); Bilirubin Urine Negative (Negative); Blood Urine Negative (Negative); Color Urine Yellow (Yellow); Glucose Urine UA Negative (Negative); Ketones Urine Negative (Negative); Leukocyte Esterase Ur Negative LEU/UL (Negative); Nitrate Urine Negative (Negative); Protein Urine Negative (Negative); Specific Grav Ur 1.008 (1.001-1.035); Urobilinogen Urine 0.2 mg/dL (<2.0); pH Urine 5.5 (5.0-9.0)
[2023-12-03 10:29] LABS: Amphetamine Screen Urine Negative (Negative); Barbiturate Screen Urine Positive (Negative); Benzodiazepines Screen Urine Negative (Negative); Cannabinoid Screen Urine Negative (Negative); Cocaine Screen Urine Negative (Negative); Methadone Screen Urine Negative (Negative); Opiate Screen Urine Negative (Negative); Phencyclidine Screen Urine Negative (Negative)
[2023-12-03] MEDS: SODIUM CHLORIDE 0.9% IV 1,000 ML 999 ML IV CONT (10:35)
--- NOTE | 2023-12-03 12:00 | ED.GENADULT ---
HPI - General Adult General Chief complaint: Head Injury Stated complaint: Fall, Seizure activity, facial injury History of Present Illness HPI narrative: This is a 48-year-old homeless male with history of alcohol withdrawal seizures and epilepsy presenting in status epilepticus. Patient was seen multiple times in our ED last night. That time he was discharged was able ambulate out of the ED with a steady gait. He was observed by hospital staff looking into car windows in the physician's parking lot when he fell. EMS was called and he was found to have generalized tonic clonic seizure activity. Patient had urinated on himself. Patient sustained lacerations to his lip and a cut to the back of his head. Patient is postictal and cannot provide any information. Related Data Allergies Allergy/AdvReac Type Severity Reaction Status Date / Time No Known Allergies Allergy Verified 12/03/23 09:44 [facility] Past Medical History Medical History Alcoholism Amputation of one or more toes great toe on the right and the second and third toe on the right Anxiety Bipolar disorder CVA (cerebral vascular accident) Depression with anxiety Hyperlipidemia Hypertension Seizures Tobacco abuse Surgical History Surgical History History of appendectomy Family History Family History Father Alcohol abuse Tobacco abuse Social History Social History Social History: He continues to smoke 1 1/2 packs of cigarettes a day day. He drinks alcohol but did not quantify. He is estranged from his mother. No children. He is homeless. He denies any illicit drugs. Code status full code Smoking packs per day: 20 Smoking cigarettes per day: 400.0 Smoking status: Current every day smoker Tobacco type: cigarettes Second hand tobacco smoke exposure: Yes Alcohol intake: current Drinks per week: 45 Substance use: never Substance use type: does not use Lack of Transportation: YES Lack of Food: Often True Current Housing: I Do Not Have Housing Concerned About Future Housing: YES Difficulty Paying Gas/Electric Bills: YES Difficulty Paying for Meds: YES Currently Unemployed: Decline to Answer Education: Decline to Answer Difficulty w/ Childcare or Family Care: Decline to Answer Spiritual care concerns: No Exam Narrative: APPEARANCE: Actively seizing Head: Laceration on the right upper lip involving the vermilion border, 3 cm laceration to the posterior scalp EYES: Leftward gaze deviation NOSE: Atraumatic NECK: Trachea midline RESPIRATORY: Tachypneic, scattered rhonchi CARDIOVASCULAR: Tachycardic, no peripheral edema ABDOMINAL: Soft nontender MUSCULOSKELETAl: No obvious deformities NEURO: Generalized tonic clonic activity SKIN:: Warm PSYCHIATRIC: Unresponsive Course Vital Signs Vital signs: Vital Signs Temperature 97.8 F 12/03/23 08:17 Pulse Rate 132 H 12/03/23 08:17 Respiratory Rate 28 H 12/03/23 08:17 Blood Pressure 138/87 12/03/23 08:17 Pulse Oximetry 90 12/03/23 08:17 Oxygen Delivery Room Air 12/03/23 08:17 Temperature 97.9 F 12/03/23 12:01 Pulse Rate 118 H 12/03/23 14:22 Respiratory Rate 16 12/03/23 14:16 Blood Pressure 154/104 H 12/03/23 14:16 Pulse Oximetry 100 12/03/23 14:22 Oxygen Delivery Mechanical Ventilation 12/03/23 14:22 Fraction of Inspired Oxygen 40 12/03/23 14:22 Procedures Intubation Intubation #1: Intubation Date: 12/03/23 Time out performed: Yes sedative: Etomidate Mg Given: 20 paralytic: Rocuronium Mg Given: 100 Laryngoscope: fiber optic video scope Tube Size (cm): 7.5 Method of Intubation: orotracheal Number of Attempts: 1 Tube Sec
[2023-12-03 12:30] LABS: Alveolar/Arterial O2 Gradient 71.1 mmHg; Base Excess ABG -1.1 mEq/l (+/-2.0); Fractional Inspired Oxygen 40 %; HCO3 ABG 21.4 mEq/l (22.0-26.0); Oxygen Content ABG 15.9 %vol (16.0-22.0); Oxygen Saturation ABG 99.4 % (95.0-100.0); Oxyhemoglobin 97.7 % THb (90.0-100.0); PCO2 ABG 28.9 mmHg (35.0-45.0); PO2 ABG 180.9 mmHg (80.0-100.0); PO2 FiO2 Ratio Arterial Blood 4.52 %; Total Hemoglobin 11.3 g/dL (12.0-18.0); pH ABG 7.487 (7.350-7.450)
[2023-12-03 12:31] LABS: Device VENTILATOR; Site Drawn RIGHT RADIAL
[2023-12-03 12:32] LABS: Arterial Blood Gas PEEP 5 cmH2O; Arterial Blood Gas Tidal Volume 450 ml; Arterial Blood Gas Vent Mode CMV; Arterial Blood Gas Ventilator rate 16 /MIN
[2023-12-03] MEDS: PROPOFOL IV EMULSION 100 ML 20.1 MG (13:44)
--- NOTE | 2023-12-03 15:45 | PC.NURSE ---
1336-Dr. Lala informed concerning output from OG. Instructed to keep it at intermittent suction.
--- NOTE | 2023-12-03 15:47 | PC.NURSE ---
pt transferred with propofol running at 20mls/hr
== END 2023-12-03 15:50 | disposition short-term general hospital (02) ==
PROVIDERS: Emergency Provider Emergency Medicine
DX: G40.901 Epilepsy, unspecified, not intractable, with status epilepticus (principal); F10.239 Alcohol dependence with withdrawal, unspecified; Y90.9 Presence of alcohol in blood, level not specified; I10 Essential (primary) hypertension; E78.5 Hyperlipidemia, unspecified; F17.210 Nicotine dependence, cigarettes, uncomplicated; Z59.00 Homelessness unspecified; Z86.73 Personal history of transient ischemic attack (TIA), and cerebral infarction without residual deficits; Z89.421 Acquired absence of other right toe(s); Z89.411 Acquired absence of right great toe; Z79.899 Other long term (current) drug therapy; R00.0 Tachycardia, unspecified; R94.31 Abnormal electrocardiogram [ECG] [EKG]; R93.7 Abnormal findings on diagnostic imaging of other parts of musculoskeletal system
CPT/HCPCS: 31500; 36415; 36600; 70450; 70486; 72125; 72170; 73630; 80053; 80307; 81003; 82550; 82805; 82948; 83690; 83735; 84100; 84443; 85018; 85025; 85610; 85730; 93005; 94002; 96361; 96365; 96366; 96367; 96375; 99285; J1953; J2060; J2560; J2704; J3360; J7030; L0140

== ENCOUNTER 2023-12-20 16:47 | Emergency (ER) | payer OTHER, SELFPAY ==
--- NOTE | 2023-12-20 17:02 | PC.NURSE ---
Pt iritated at intake when asked what he is at the ER for. Pt here to go to bus stop. This RN asked him multiple times if he wanted to be seen by a dr and he states I have money i just need a ride Pt is A&Ox4
--- NOTE | 2023-12-20 17:04 | PC.NURSE ---
Pt to the bus stop to wait for bus, declines wanting to see
== END 2023-12-20 17:55 | disposition left against medical advice (07) ==
LOC: ANHED 17:34
DX: Z53.21 Procedure and treatment not carried out due to patient leaving prior to being seen by health care provider (principal)
CPT/HCPCS: 99199

== ENCOUNTER 2023-12-28 00:29 | Emergency (ER) | payer OTHER, SELFPAY ==
--- NOTE | ~2023-12-28 | XR_ITS ---
EXAMINATION: XR ankle RT 2V DATE: 12/28/2023 01:38 INDICATION: Right ankle pain. TECHNIQUE: 2 views of right ankle were obtained. COMPARISON: Right foot radiographs 12/03/2023 FINDINGS: There is amputation through the bases of the metatarsals. There is an old healed fracture d eformity of calcaneus. There is an old healed fracture of distal tibia with vira and screw fixation. T here is heterotopic ossification distal to medial malleolus. There is an old healed fracture of dista l fibular diaphysis. There is likely bridging bone between distal tibia and fibula. IMPRESSION: 1. No acute fracture or evidence of osteomyelitis. Reviewed, dictated and finalized at location A.
--- NOTE | ~2023-12-28 | XR_ITS ---
EXAMINATION: XR foot RT 2V DATE: 12/28/2023 01:38 INDICATION: Right foot pain. TECHNIQUE: 2 views of right foot were obtained. COMPARISON: Right foot radiographs 12/03/2023 FINDINGS: There is amputation through the bases of the metatarsals. There is an old healed fracture o f distal tibia with vira and screw fixation. There is an old healed fracture of distal fibular diaphys is. There is likely bridging bone between distal tibia and fibula. There is an old healed fracture de formity of calcaneus. There is heterotopic ossification distal to medial malleolus. 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 IMPRESSION: 1. No fracture or evidence of osteomyelitis. Reviewed, dictated and finalized at location A.
[2023-12-28 00:29] VITALS: BP 126/93; PULSE 120; RESP 20; TEMP 36.5; O2SAT 98
[2023-12-28 00:42] VITALS: BP 144/98; RESP 18; O2SAT 100
--- NOTE | 2023-12-28 01:15 | ED.EXTPRO ---
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 Previous surgeries including tibial intramedullary vira. Presents today with a chief complaint of right foot pain. Patient states his pain has been present since January of this last year when he had a frostbite injury. He is homeless and walks on his feet constantly. His dressing changed earlier today another facility. Patient denies any other complaints at this time aside from right foot pain. Denies any fever, chills, nausea, vomiting, abdominal pain. He does endorse some alcohol use today but is clinically sober during my assessment is awake alert oriented answers all my questions appropriately with normal mood and affect. Denies any new injuries, trauma, and wears a postsurgical boot on his right lower extremity. Related Data Allergies Allergy/AdvReac Type Severity Reaction Status Date / Time No Known Allergies Allergy Verified 12/28/23 00:35 Review of Systems Review of Systems: As reviewed above in HPI [facility] [place] Past Medical History Medical History Alcoholism Amputation of one or more toes great toe on the right and the second and third toe on the right Anxiety Bipolar disorder CVA (cerebral vascular accident) Depression with anxiety Hyperlipidemia Hypertension Seizures Tobacco abuse Surgical History Surgical History History of appendectomy Family History Family History Father Alcohol abuse Tobacco abuse Social History Social History Social History: He continues to smoke 1 1/2 packs of cigarettes a day day. He drinks alcohol but did not quantify. He is estranged from his mother. No children. He is homeless. He denies any illicit drugs. Code status full code Smoking packs per day: 20 Smoking cigarettes per day: 400.0 Smoking status: Current every day smoker Tobacco type: cigarettes Second hand tobacco smoke exposure: Yes Alcohol intake: current Drinks per week: 45 Substance use: never Substance use type: does not use Lack of Transportation: YES Lack of Food: Often True Current Housing: I Do Not Have Housing Concerned About Future Housing: YES Difficulty Paying Gas/Electric Bills: YES Difficulty Paying for Meds: YES Currently Unemployed: Decline to Answer Education: Decline to Answer Difficulty w/ Childcare or Family Care: Decline to Answer Spiritual care concerns: No Exam Narrative: GENERAL: Additional in appearance but not any acute distress, awake alert answering all my questions. Clinically sober. HEAD: [Normocephalic, atraumatic.] EYES: [PERRLA and EOMI.] ENT: Nares clear, no rhinorrhea or epistaxis. Mucous membranes moist. NECK: Supple. CHEST: [Clear to auscultation. No respiratory distress.] HEART: [Regular rate and rhythm]. No murmur heard. [Normal peripheral pulses.] ABDOMEN: [Soft, nondistended], [nontender], [No rigidity or guarding] EXTREMITIES: Normal range of motion. Right lower extremity with postsurgical changes, chronic scarring, no new wounds or dehiscence of his previous wounds. No edema or crepitus with palpation. Tenderness to palpation over the metatarsal heads. SKIN: Warm, dry, no rash. NEURO: [No focal deficits]. Alert and oriented [x3.] PSYCH: [Normal mood and affect.] Course Vital Signs Vital signs: Vital Signs Temperature 36.5 C 12/28/23 00:29 Pulse Rate 120 H 12/28/23 00:29 Respiratory Rate 20 12/28/23 00:29 Blood Pressure 126/93 H 12/28/23 00:29 Pulse Oximetry 98 12/28/23 00:29 Oxygen Delivery Room Air 12/28/23 00:29 Temperature 36.5 C 12/28/23 00:29 Pulse Rate 120 H 12/28/23 00:29 Respiratory Rate 18 12/28/23 00:42 Blood Pressure 144/98 H 12/28/23 00:42 Pulse Oximetry 100 12/28/23 00:42 Oxygen Delivery Room Air 12/28/23 00:29 MDM - Extremity (Nontraumatic) MDM Narrative Medical decision making narrative: 48-year-old male with history of alcohol abuse, bipolar depression, seizure disorder. He also has a history of frostbite injury with transmetatarsal amputation and multiple surgeries to his right foot. He is homeless and presents with right foot pain. He has been seen previously for similar presentation of homelessness and acute right foot pain. He states he has no home medications for pain but does usually take Oxy when he gets them. Denies any new trauma or injuries. Was at a different facility today and have his dressings changed prior to being discharged. Patient is not clinically have any evidence of infection or new injury. He has tenderness over the transmetatarsal amputation site but no wound dehiscence or drainage. No active signs of infection. He appears disheveled but otherwise not any acute distress. Slight tachycardia but likely secondary to pain. He is awake alert oriented answers all my questions and clinically sober. Will provide him oxycodone for the pain obtain x-rays of his right foot and ankle. X-rays on my read show no a care and osseous process and no change from prior x-rays. X-ray read by [facility] shows previous amputations and no definitive osseous findings. Soft tissue edema and ulcerations which are evident on examination but no clinical signs or symptoms of infection. Patient had improvement in his pain with medications and was stable for discharge at this time. Discharge Plan Discharge Clinical Impression: Chronic foot pain Patient Disposition: Home, Self-Care Condition: Stable Instructions: Antibiotic Form, Metatarsalgia (DC) Additional Instructions: Follow-up with your regular doctor and surgeon on outpatient basis. You can take [id number] medications for pain control. Return at any point with any new or worsening concerns. Prescriptions: No Action levetiracetam 1,000 mg tablet 1,000 mg PO BID 30 Days Qty: 60 0RF famotidine [Pepcid] 40 mg tablet 40 mg PO DAILY 30 Days Qty: 30 0RF folic acid 1 mg Tablet 1 mg PO DAILY Qty: 30 6RF thiamine HCl (vitamin B1) [Vitamin B-1] 100 mg Tablet 100 mg PO QAM Qty: 30 6RF levetiracetam 1,000 mg tablet 1,000 mg PO BID Qty: 60 6RF ibuprofen 600 mg tablet 600 mg PO TID Qty: 20 0RF Follow-up/Referrals: UNKNOWN,DOCTOR [Primary Care Provider] - Time of Disposition: 03:00
[2023-12-28] MEDS: oxyCODONE HCL (*CRX) 5 MG TAB IR PO (01:21)
[2023-12-28 03:04] VITALS: BP 137/99; PULSE 105; RESP 16; O2SAT 97
== END 2023-12-28 03:50 | disposition home or self-care (01) ==
PROVIDERS: Emergency Provider Student in an Organized Health Care Education/Training Program
DX: M79.671 Pain in right foot (principal); G89.29 Other chronic pain; Z59.00 Homelessness unspecified; F10.20 Alcohol dependence, uncomplicated; Z89.421 Acquired absence of other right toe(s); I10 Essential (primary) hypertension; E78.5 Hyperlipidemia, unspecified; F41.8 Other specified anxiety disorders; Z86.73 Personal history of transient ischemic attack (TIA), and cerebral infarction without residual deficits; F17.210 Nicotine dependence, cigarettes, uncomplicated
CPT/HCPCS: 73600; 73620; 99283; A9270

== ENCOUNTER 2023-12-28 06:23 | Observation (INO) | payer OTHER, SELFPAY ==
[2023-12-28] VITALS (17 sets, daily range): BP systolic 129–162; BP diastolic 79–96; PULSE 80–126; RESP 18–33; TEMP 36.5–37; O2SAT 94–100; BMI 18.6
--- NOTE | ~2023-12-28 | CT_ITS ---
EXAMINATION: CT brain wo con DATE: 12/28/2023 06:50 INDICATION: Seizure. TECHNIQUE: Computed tomography (CT) of the head was performed without intravenous contrast. The mA wa s adjusted according to patient size. Iterative reconstruction technique was employed. The dose-lengt h product was 681.00 mGy-cm. COMPARISON: Head CT 12/03/2023 FINDINGS: There is no intracranial hemorrhage, acute infarction, or abnormal intracranial mass lesion . The ventricles are normal in size. The orbits are normal. There is mild mucosal thickening in the p aranasal sinuses. The mastoid air cells are normal. There is scalp soft tissue swelling. There are sk in shantelle at the scalp on the right. IMPRESSION: 1. Normal brain. Reviewed, dictated and finalized at location A. IMPRESSION: 1. Normal brain.
--- NOTE | ~2023-12-28 | XR_ITS ---
EXAMINATION: XR chest 1V portable DATE: 12/28/2023 07:00 INDICATION: Seizure. TECHNIQUE: A single frontal view of the chest was obtained. COMPARISON: Chest single view 12/03/2023, CT abdomen and pelvis 12/13/2022 FINDINGS: There is no pneumonia, pleural effusion, or pneumothorax. The heart size is normal. There a re old healed rib fractures bilaterally. There is an old healed fracture of left clavicle. IMPRESSION: 1. No acute cardiopulmonary disease. Reviewed, dictated and finalized at location A.
--- NOTE | 2023-12-28 06:30 | ED_ITS ---
HPI - Seizure General Chief Complaint: Seizure Stated Complaint: seizure Time Seen by Provider: 12/28/23 06:30 History of Present Illness HPI Narrative: 48-year-old male with a history of alcohol abuse, seizure disorder, prior CVA, bipolar depression, chronic foot pain. Patient was just discharged from this facility several hours prior for chronic right foot pain after an unremarkable workup. Patient was in the lobby waiting for transportation as he is acutely homeless. Patient had a witnessed generalized tonic-clonic seizure that lasted several seconds prior to resolution on its own. Patient appears postictal during my initial encounter but is able to answer my questions. He is not sure what medications he takes for his seizures. He does admit to drinking yesterday but was clinically sober earlier this evening. He has a history of alcohol withdrawal seizures on review of the EMR documentation and also history of epilepsy. Patient had similar presentation in episode earlier this month where he had multiple visits to the same ED at the same day and was actually in status epilepticus during that time requiring intubation and being flown out outside facility. Unclear when patient got discharged from that facility but was within the last 2 weeks. Patient has no evidence of trauma, is postictal during assessment, does smell of urine. Seizure History: Yes (since 2000) Related Data Allergies Allergy/AdvReac Type Severity Reaction Status Date / Time No Known Allergies Allergy Verified 12/28/23 00:35 Review of Systems Review of Systems: Unable to fully obtain secondary to postictal state ROS unobtainable: Yes unobtainable due to medical condition PMFSH Past Medical History Medical History Alcoholism Amputation of one or more toes great toe on the right and the second and third toe on the right Anxiety Bipolar disorder CVA (cerebral vascular accident) Depression with anxiety Hyperlipidemia Hypertension Seizures Tobacco abuse Surgical History Surgical History History of appendectomy Family History Family History Father Alcohol abuse Tobacco abuse Social History Social History Social History: He continues to smoke 1 1/2 packs of cigarettes a day day. He drinks alcohol but did not quantify. He is estranged from his mother. No children. He is homeless. He denies any illicit drugs. Code status full code Smoking packs per day: 20 Smoking cigarettes per day: 400.0 Smoking status: Current every day smoker Tobacco type: cigarettes Second hand tobacco smoke exposure: Yes Alcohol intake: current Drinks per week: 45 Substance use: never Substance use type: does not use Lack of Transportation: YES Lack of Food: Often True Current Housing: I Do Not Have Housing Concerned About Future Housing: YES Difficulty Paying Gas/Electric Bills: YES Difficulty Paying for Meds: YES Currently Unemployed: Decline to Answer Education: Decline to Answer Difficulty w/ Childcare or Family Care: Decline to Answer Spiritual care concerns: No Exam Narrative: GENERAL: Postictal in appearance, not in any acute distress, awake and able to answer questions intermittently. Smells of urine. HEAD: [Normocephalic, atraumatic.] EYES: [PERRLA and EOMI.] ENT: Nares clear, no rhinorrhea or epistaxis. Mucous membranes moist. NECK: Supple. CHEST: [Clear to auscultation. No respiratory distress.] HEART: [Regular rate and rhythm]. No murmur heard. [Normal peripheral pulses.] ABDOMEN: [Soft, nondistended], [nontender], [No rigidity or guarding] EXTREMITIES: Normal range of motion. [No edema.] Right lower extremity with postsurgical changes, no new wounds or dehiscence. No new edema. Postsurgical shoe in place with clean dressings. SKIN: Warm, dry, no rash. NEURO: Seems to move all extremities, awake and answers questions intermittently. Postictal Course Vital Signs Vital signs: Vital Signs Temperature 36.6 C 12/28/23 06:25 Pulse Rate 126 H 12/28/23 06:25 Respiratory Rate 33 H 12/28/23 06:25 Blood Pressure 162/96 H 12/28/23 06:25 Pulse Oximetry 95 12/28/23 06:25 Oxygen Delivery Room Air 12/28/23 06:25 Temperature 36.6 C 12/28/23 06:25 Pulse Rate 121 H 12/28/23 06:25 Respiratory Rate 33 H 12/28/23 06:25 Blood Pressure 162/96 H 12/28/23 06:25 Pulse Oximetry 94 12/28/23 06:25 Oxygen Delivery Room Air 12/28/23 06:25 MDM - Seizure MDM Narrative Medical decision making narrative: 48-year-old male who was just discharged from the ED several hours prior for chronic foot pain encounter. He had a generalized tonic-clonic seizure in the waiting room. He has a history of epilepsy and alcohol withdrawal seizures. He did admit to alcohol intake throughout the day yesterday. He is postictal during initial encounter now, slightly hypertensive and tachycardic. Saturating well on room air. Concern presently is for alcohol withdrawal seizures given his known history but he could also have a breakthrough seizure from his epilepsy. He was given a fluid bolus, pointing a glucose was obtained, Keppra 1500 mg was given IV as well as 260 mg of phenobarbital to cover for withdrawal. A CT head was obtained, chest x-ray and laboratory assessment ordered. I did independently review the head CT did not find any acute intracranial pathology. Patient is pending completion of his workup and signed out to the oncoming ED physician Dr. Borden. Medical Records Attestation: I reviewed the patient's medical records. Lab Data Attestation: I reviewed the patient's lab results. 12/28/23 06:35 12/28/23 06:35 Labs: Lab Results 12/28/23 Range/Units 06:35 WBC 9.2 (4.5-10.0) K/mm3 RBC 4.18 L (4.6-6.20) M/mm3 Hgb 12.0 L (14.0-18.0) g/dL Hct 37.0 L (42.0-52.0) % MCV 88.5 (80-100) fl MCH 28.7 (26-34) pg MCHC 32.4 (32-36) g/dl RDW 15.7 H (11.5-14.5) % Plt Count 256 (150-375) k/mm3 MPV 9.6 (7.4-10.4) fl Immature Gran % (Auto) 0.4 (0-0.5) % Neut % (Auto) 62.7 (45.5-73.1) % Lymph % (Auto) 26.0 (18.3-44.2) % Morrow % (Auto) 8.3 (2.6-8.5) % Eos % (Auto) 2.2 (0-4.4) % Baso % (Auto) 0.4 (0.2-1.2) % Lymph # (Auto) 2.40 (0.9-3.2) K/mm3 Morrow # (Auto) 0.8 H (0.1-0.6) K/mm3 Eos # (Auto) 0.2 (0-0.3) K/mm3 Baso # (Auto) 0.0 (0.0-0.1) K/mm3 Abs Immat Gran (auto) 0.04 H (0.00-0.031) K/mm3 Absolute Neuts (auto) 5.8 (1.3-6.7) K/mm3 Absolute Nucleated RBC 0.000 (0.0-0.012) K/mm3 Nucleated RBC % 0.0 (0.0-0.2) % Sodium 136 L (137-145) mmol/L Potassium 3.3 L (3.4-5.0) mmol/L Chloride 101 (98-107) mmol/L Carbon Dioxide 18 L (22-30) mmol/L Anion Gap 17 H (4-12) mmol/L BUN 4 L (9-20) mg/dL Creatinine 0.60 L (0.7-1.3) mg/dL Estim Creat Clear Calc 118 ml/min Estimated GFR > 60 (59 - ) Glucose 99 (65-110) mg/dL Lactic Acid 8.7 H* (0.7-2.0) mmol/L Calcium 7.8 L (8.4-10.2) mg/dL Total Bilirubin 0.3 (0.2-1.3) mg/dL AST 25 (17-59) U/L ALT 12 (6-50) U/L Alkaline Phosphatase 193 H (38-126) U/L Total Creatine Kinase 121 (55-170) U/L Total Protein 7.0 (6.3-8.2) g/dL Albumin 3.7 (3.5-5.1) g/dL Ethyl Alcohol 38 (<10) mg/dL Imaging Data Attestation: I personally reviewed and interpreted this imaging study as follows: Radiologist's impression: Impressions Head CT 12/28/23 06:53 IMPRESSION: 1. Normal brain. Chest X-Ray 12/28/23 07:03 IMPRESSION: 1. No acute cardiopulmonary disease. Discharge Plan Discharge Clinical Impression: Alcohol withdrawal seizure Patient Disposition: Still a Patient Condition: Guarded Prognosis Prescriptions: No Action levetiracetam 1,000 mg tablet 1,000 mg PO BID 30 Days Qty: 60 0RF famotidine [Pepcid] 40 mg tablet 40 mg PO DAILY 30 Days Qty: 30 0RF folic acid 1 mg Tablet 1 mg PO DAILY Qty: 30 6RF thiamine HCl (vitamin B1) [Vitamin B-1] 100 mg Tablet 100 mg PO QAM Qty: 30 6RF levetiracetam 1,000 mg tablet 1,000 mg PO BID Qty: 60 6RF ibuprofen 600 mg tablet 600 mg PO TID Qty: 20 0RF Follow-up/Referrals: UNKNOWN,DOCTOR [Primary Care Provider] -
[2023-12-28] MEDS: SODIUM CHLORIDE 0.9% IV 1,000 ML 999 ML IV CONT (06:40)
[2023-12-28] MEDS: levETIRAcetam 1500MG/NACL100ML 1,500 MG/100 ML BAG 400 MG IVPB (06:40)
[2023-12-28 06:43] LABS: Basophils Percent Auto 0.4 % (0.2-1.2); Eosinophils Absolute Auto 0.2 K/mm3 (0-0.3); Eosinophils Percent Auto 2.2 % (0-4.4); Immature Granulocyte Absolute 0.04 K/mm3 (0.00-0.031); Immature Granulocyte Percent A 0.4 % (0-0.5); Mean Corpuscular HGB Conc 32.4 g/dl (32-36); Mean Corpuscular Hemoglobin 28.7 pg (26-34); Mean Corpuscular Volume 88.5 fl (80-100); Mean Platelet Volume 9.6 fl (7.4-10.4); Monocytes Absolute Auto 0.8 K/mm3 (0.1-0.6); Monocytes Percent Auto 8.3 % (2.6-8.5); Neutrophils Absolute Auto 5.8 K/mm3 (1.3-6.7); Neutrophils Percent Auto 62.7 % (45.5-73.1); Platelet Count Result 256 k/mm3 (150-375); Red Blood Count 4.18 M/mm3 (4.6-6.20); Red Cell Distribution Width 15.7 % (11.5-14.5); White Blood Count 9.2 K/mm3 (4.5-10.0)
[2023-12-28] MEDS: PHENobarbitaL sodium (*CRX) 130 MG/ML VIAL 260 MG IV PUSH (06:49)
[2023-12-28 06:54] LABS: Ethanol 38 mg/dL (<10)
[2023-12-28 06:55] LABS: Alanine Aminotransferase 12 U/L (6-50); Albumin Level 3.7 g/dL (3.5-5.1); Alkaline Phosphatase 193 U/L (38-126); Anion Gap 17 mmol/L (4-12); Aspartate Amino Transferase 25 U/L (17-59); Bilirubin,Total 0.3 mg/dL (0.2-1.3); Blood Urea Nitrogen 4 mg/dL (9-20); Calcium 7.8 mg/dL (8.4-10.2); Carbon Dioxide 18 mmol/L (22-30); Chloride 101 mmol/L (98-107); Estimated CRCL calculation 118 ml/min; Estimated Glomerular Filt Rate > 60; Glucose 99 mg/dL (65-110); Potassium 3.3 mmol/L (3.4-5.0); Sodium 136 mmol/L (137-145)
[2023-12-28 06:56] LABS: Lactic Acid Reflex 8.7 mmol/L (0.7-2.0)
[2023-12-28 07:03] LABS: Creatine Kinase 121 U/L (55-170)
[2023-12-28] MEDS: SODIUM CHLORIDE 0.9% IV 1,000 ML 125 ML IV CONT ×2 (09:31→18:08)
[2023-12-28] MEDS: ONDANSETRON INJ 4 MG/2 ML VIAL IV PUSH (09:34)
[2023-12-28 09:41] LABS: Reflex Lactic Acid Yes or No Add Lactic
--- NOTE | 2023-12-28 10:34 | ADMGEN ---
This patient, Luis Desouza, was admitted to IMU Room 205-02. Patient/family oriented to hospital policies and general routines including ID bracelet, bed and alarms, visiting hours, pain management, procedures, bathroom and other care routines, personal items, smoking policy, room service/diet, and visiting hours. Information on how to activate the Rapid Response Team has been discussed. Patient/Family are encouraged to report perceived risks to care and to ask questions if they do not understand what they are told or what they should do. Patient arrived to room 205-2 at 1035.
[2023-12-28 11:56] LABS: Lactic Acid 0.8 mmol/L (0.7-2.0)
--- NOTE | 2023-12-28 12:24 | P.HP_ITS ---
H&P: HPI History of Present Illness Date/Time: 12/28/23 12:24 Chief Complaint: Seizure Narrative: 48-year-old male was in the emergency department early this morning due to right foot pain. He was discharged from the emergency room and while in the waiting room had a generalized tonic-clonic seizure. Laboratory evaluation showed a lactic acidosis CT of the brain was unremarkable. He received IV phenobarbital and Keppra. At the time of my interview and exam he is still drowsy but awakens easily. He states he has had about 150 seizures since 2000. He has had an EEG in the past at [facility] that was normal. His brain imaging has been normal. He is not taking any medication on a regular basis as he is homeless. He drinks about 6 beers a day and smokes 5 or more cigarettes per day depending on what he can obtain. He is status post a distal right foot amputation frostbite and distal left amputation also due to frostbite. Has a history of bipolar did demented and discharged but takes no medication for that. Review of Systems Review of Systems: All systems reviewed & are unremarkable except as noted in HPI and below PMFSH Past Medical History Medical History (Updated 12/28/23 @ 13:24 by Emanuel Copeland MD) Alcoholism Amputation of one or more toes Distal right foot. Distal left fingers. Anxiety Bipolar disorder Depression with anxiety Hyperlipidemia Hypertension Seizures Tobacco abuse Surgical History Surgical History (Updated 12/28/23 @ 13:15 by Emanuel Copeland MD) History of appendectomy Family History Family History Father Alcohol abuse Tobacco abuse Social History Social History (Updated 12/28/23 @ 13:03 by Emanuel Copeland MD) Social History: Smokes 5 cigarettes per day, more when he can afford it. Started smoking around age 25. Drinks about 72 oz of beer per day (3 x 24oz cans). Rarely drinks any other alcoholic beverages. He is estranged from his mother. No children. He is homeless. He denies any illicit drugs. Code status full code Smoking packs per day: 0.25 Smoking cigarettes per day: 5.0 Years smoked: 23 Smoking pack-years: 5.75 Smoking status: Current every day smoker Tobacco type: cigarettes Second hand tobacco smoke exposure: Yes Additional smoking assessment comments: patient states its a different amount all the time Alcohol intake: current Drinks per week: 42 Substance use: never Substance use type: does not use Do You Feel Safe in your Home?: No Lack of Transportation: YES Lack of Food: Often True Current Housing: I Do Not Have Housing Concerned About Future Housing: YES Difficulty Paying Gas/Electric Bills: Decline to Answer Difficulty Paying for Meds: Decline to Answer Currently Unemployed: Decline to Answer Education: Decline to Answer Difficulty w/ Childcare or Family Care: Decline to Answer Living arrangements: homeless Spiritual care concerns: No Meds Home Medications and Allergies Home Medications Medication Instructions Recorded Confirmed Type folic acid 1 mg tablet 1 mg PO DAILY #30 tabs 07/04/22 12/28/23 Rx thiamine HCl (vitamin B1) 100 mg 100 mg PO QAM #30 tabs 07/04/22 12/28/23 Rx tablet (Vitamin B-1) ibuprofen 600 mg tablet 600 mg PO TID #20 tabs 07/18/22 12/28/23 Rx famotidine 40 mg tablet (Pepcid) 40 mg PO DAILY 1 month #30 tabs 12/13/22 12/28/23 Rx levetiracetam 1,000 mg tablet 1,000 mg PO BID 1 month #60 tabs 12/13/22 12/28/23 Rx Allergies Allergy/AdvReac Type Severity Reaction Status Date / Time No Known Allergies Allergy Verified 12/28/23 00:35 Vital Signs Vital Signs - 24 hr 12/28/23 06:25 12/28/23 06:25 12/28/23 06:25 Temperature 98 F Pulse Rate 126 H 121 H Respiratory Rate 33 H Blood Pressure 162/96 H Pulse Oximetry 95 94 Oxygen Delivery Room Air Fraction of Inspired Oxygen 12/28/23 07:16 12/28/23 07:46 12/28/23 08:31 Temperature Pulse Rate 118 H 99 102 H Respiratory Rate 29 H 28 H 28 H Blood Pressure 136/95 H 129/82 136/82 Pulse Oximetry 98 99 97 Oxygen Delivery Fraction of Inspired Oxygen 12/28/23 08:46 12/28/23 10:46 12/28/23 11:10 Temperature 97.7 F Pulse Rate 103 H 101 H Respiratory Rate 27 H 20 Blood Pressure 131/91 H 130/79 Pulse Oximetry 95 100 Oxygen Delivery Room Air Fraction of Inspired Oxygen 12/28/23 11:55 10/27/24 12:20 Temperature 98.2 F Pulse Rate 108 H Respiratory Rate 20 Blood Pressure 147/94 H Pulse Oximetry 96 97 Oxygen Delivery Room Air Fraction of Inspired Oxygen 21 Exam Narrative: HEENT: PERRL, sclerae nonicteric, pharyngeal mucosa pink and intact NECK: No JVD, adenopathy, or thyromegaly CHEST: Clear to auscultation. Normal effort. HEART: NL S1/S2, regular, no murmur ABDOMEN: BS+, soft, nontender, no mass, no bruits EXTREMITIES: No cyanosis, edema, or clubbing NEUROLOGIC: CN intact and symmetric to inspection. Tone and strength symmetric. DTR's hyporeflexic but symmetric. MUSCULOSKELETAL: Surgically absent distal right foot and distal left fingers. PSYCH: Drowsy but arouses easily. Oriented to person, place. Speech slurred. Pleasant and cooperative. H&P: Results Labs Labs: Short CBC 12/28/23 Range/Units 06:35 WBC 9.2 (4.5-10.0) K/mm3 Hgb 12.0 L (14.0-18.0) g/dL Hct 37.0 L (42.0-52.0) % Plt Count 256 (150-375) k/mm3 BMP 12/28/23 06:35 Sodium 136 L Potassium 3.3 L Chloride 101 Carbon Dioxide 18 L BUN 4 L Creatinine 0.60 L Glucose 99 Calcium 7.8 L Cardiac Enzymes 12/28/23 Range/Units 06:35 Total Creatine Kinase 121 (55-170) U/L Liver Function 12/28/23 Range/Units 06:35 Total Bilirubin 0.3 (0.2-1.3) mg/dL AST 25 (17-59) U/L ALT 12 (6-50) U/L Alkaline Phosphatase 193 H (38-126) U/L Albumin 3.7 (3.5-5.1) g/dL Assessment and Plan Assessment and plan (1) Alcohol withdrawal seizure: Code(s): F10.939 - Alcohol use, unspecified with withdrawal, unspecified; R56.9 - Unspecified convulsions Status: Acute Assessment and Plan: * CIWA protocol, Scheduled Librium 25 mg q 12 h, prn Ativan 1 mg q 4h * Thiamine, folic acid, potassium, magnesium, MVI ordered (2) Alcohol abuse: Code(s): F10.10 - Alcohol abuse, uncomplicated Status: Acute Assessment and Plan: * Willing to consider rehab after detox * Care coordination consulted (3) Tobacco abuse: Code(s): Z72.0 - Tobacco use Status: Acute Assessment and Plan: * Consider nicotine patch if needed (4) Bipolar disorder: Code(s): F31.9 - Bipolar disorder, unspecified Status: Acute Assessment and Plan: * Would likely benefit from mood stabilizer after detox (5) Hypertension: Code(s): I10 - Essential (primary) hypertension Status: Acute Assessment and Plan: * Mildly elevated at admission * Monitor (6) Anemia: Code(s): D64.9 - Anemia, unspecified Status: Acute Assessment and Plan: * Lab evaluation initiated Quality VTE Prophylaxis VTE prophylaxis: mechanical ordered
[2023-12-28] MEDS: THIAMINE HCL 200 MG/2 ML VIAL 100 MG IV PUSH (14:35)
[2023-12-28] MEDS: MAGNESIUM SULF 1 GM/D5W 100 ML 1 GM/100 ML BAG IVPB (14:36)
[2023-12-28] MEDS: POTASSIUM CHLORIDE 20 MEQ ER TABLET 40 MEQ PO (14:38)
[2023-12-28 15:08] LABS: Amphetamine Screen Urine Negative (Negative); Barbiturate Screen Urine Positive (Negative); Benzodiazepines Screen Urine Negative (Negative); Cannabinoid Screen Urine Negative (Negative); Cocaine Screen Urine Negative (Negative); Methadone Screen Urine Negative (Negative); Opiate Screen Urine Negative (Negative); Phencyclidine Screen Urine Negative (Negative)
[2023-12-28] MEDS: chlordiazePOXIDE (*CRX) 25 MG CAPSULE PO (20:28)
[2023-12-29] VITALS (12 sets, daily range): BP systolic 126–150; BP diastolic 75–87; PULSE 75–90; RESP 16–20; TEMP 36.8–37.2; O2SAT 95–99; BMI 18.6
[2023-12-29] MEDS: SODIUM CHLORIDE 0.9% IV 1,000 ML 125 ML IV CONT ×3 (01:23→17:09)
--- NOTE | 2023-12-29 02:42 | PC.NURSE ---
Jessica Martin RN took over care of this patient at 1900 on 12/28/23
[2023-12-29 05:26] LABS: Alanine Aminotransferase 8 U/L (6-50); Albumin Level 3.2 g/dL (3.5-5.1); Alkaline Phosphatase 190 U/L (38-126); Anion Gap 4 mmol/L (4-12); Aspartate Amino Transferase 24 U/L (17-59); Bilirubin,Total 0.8 mg/dL (0.2-1.3); Blood Urea Nitrogen 3 mg/dL (9-20); Calcium 7.9 mg/dL (8.4-10.2); Carbon Dioxide 22 mmol/L (22-30); Chloride 109 mmol/L (98-107); Estimated CRCL calculation 108 ml/min; Estimated Glomerular Filt Rate > 60; Glucose 87 mg/dL (65-110); Potassium 3.5 mmol/L (3.4-5.0); Sodium 135 mmol/L (137-145)
[2023-12-29 05:45] LABS: Iron 169 ug/dL (49-181)
[2023-12-29 05:54] LABS: Percent Iron Saturation 55 % (20-50)
[2023-12-29 06:16] LABS: Thyroid Stimulating Hormone Reflex 0.807 uIU/mL (0.465-4.68)
[2023-12-29 06:53] LABS: Hematocrit 34.5 % (42.0-52.0); Immature Reticulocyte Fraction 12.8 % (3.0-15.9); Mean Corpuscular HGB Conc 31.9 g/dl (32-36); Mean Corpuscular Hemoglobin 28.3 pg (26-34); Mean Corpuscular Volume 88.7 fl (80-100); Mean Platelet Volume 9.9 fl (7.4-10.4); Platelet Count Result 185 k/mm3 (150-375); Red Blood Count 3.89 M/mm3 (4.6-6.20); Red Cell Distribution Width 15.4 % (11.5-14.5); Reticulocyte Hemoglobin Conten 29.6 pg (28.2-36.6); Reticulocyte Percent 1.38 % (0.7-4.3); Reticulocytes Absolute 0.05 10^6/uL (0.02-0.10)
[2023-12-29 06:56] LABS: Folic Acid 16.3 ng/mL (2.76->20)
[2023-12-29] MEDS: THIAMINE HCL 100 MG TABLET PO (08:12)
[2023-12-29] MEDS: FOLIC ACID 1 MG TABLET PO (08:12)
[2023-12-29] MEDS: chlordiazePOXIDE (*CRX) 25 MG CAPSULE PO ×3 (08:12→17:28)
[2023-12-29] MEDS: THERAPEUTIC MULTIVITAMINS/MINERALS TAB (*BKC) 1 TABLET PO (08:12)
--- NOTE | 2023-12-29 10:20 | P.PNIM_ITS ---
Progress Note: A&P Assessment and Plan (1) Anemia: Code(s): D64.9 - Anemia, unspecified Status: Acute (2) Alcohol withdrawal seizure: Code(s): F10.939 - Alcohol use, unspecified with withdrawal, unspecified; R56.9 - Unspec ified convulsions Status: Acute (3) Tobacco abuse: Code(s): Z72.0 - Tobacco use Status: Acute (4) Depression with anxiety: Code(s): F41.8 - Other specified anxiety disorders Status: Acute (5) Alcoholism: Code(s): F10.20 - Alcohol dependence, uncomplicated Status: Acute Plan (1) Alcohol withdrawal seizure: Code(s): F10.939 - Alcohol use, unspecified with withdrawal, unspecified; R56.9 - Unspecified convulsions Status: Acute Assessment and Plan: * CIWA protocol, Scheduled Librium 25 mg q 12 h, prn Ativan 1 mg q 4h * Thiamine, folic acid, potassium, magnesium, MVI ordered Patient still has anxiety, mild hand tremor, patient denies visual hallucination Increase Librium to 25 mg t.i.d. p.o. continue Ativan prn (2) Alcohol abuse: Code(s): F10.10 - Alcohol abuse, uncomplicated Status: Acute Assessment and Plan: * Willing to consider rehab after detox * Care coordination consulted * (3) Tobacco abuse: Code(s): Z72.0 - Tobacco use Status: Acute Assessment and Plan: * Consider nicotine patch if needed * (4) Bipolar disorder: Code(s): F31.9 - Bipolar disorder, unspecified Status: Acute Assessment and Plan: * Would likely benefit from mood stabilizer after detox * (5) Hypertension: Code(s): I10 - Essential (primary) hypertension Status: Acute Assessment and Plan: * Mildly elevated at admission * Monitor * (6) Anemia: Code(s): D64.9 - Anemia, unspecified Status: Acute Assessment and Plan: * Lab evaluation initiated No iron deficiency Hemoglobin stable, possible due to in alcohol toxication Subjective Date/time seen: 12/29/23 10:20 Interval history: Patient is afebrile, blood pressure stable, no O2 desaturation on room air, labs reviewed, patient still anxious, uncontrolled hand tremor, patient has some headache, denies nausea vomiting abdomen pain Exam Narrative: HEENT: PERRL, sclerae nonicteric, NECK: No JVD, adenopathy, or thyromegaly CHEST: Clear to auscultation. Normal effort. HEART: NL S1/S2, regular, no murmur ABDOMEN: BS+, soft, nontender, no mass, no bruits EXTREMITIES: No cyanosis, edema, or clubbing NEUROLOGIC: CN intact and symmetric to inspection. Tone and strength symmetric. DTR's hyporeflexic but symmetric. MUSCULOSKELETAL: Surgically absent distal right foot and distal left fingers. mild hand tremor bilaterally PSYCH: Anxious, oriented x3,. Speech slow but clear, Pleasant and cooperative. Objective Data Vital Signs Vital Signs: Vital Signs - 24 hr 12/28/23 10:46 12/28/23 11:10 12/28/23 11:55 Temperature 97.7 F Pulse Rate 101 H Respiratory Rate 20 Blood Pressure 130/79 Pulse Oximetry 100 96 Oxygen Delivery Room Air Room Air Fraction of Inspired Oxygen 21 12/28/23 12:20 12/28/23 10:35 12/28/23 12:00 Temperature 98.2 F Pulse Rate 108 H 113 H 102 H Respiratory Rate 20 Blood Pressure 147/94 H Pulse Oximetry 97 Oxygen Delivery Fraction of Inspired Oxygen 12/28/23 14:00 12/28/23 15:39 12/28/23 15:38 Temperature 98.6 F Pulse Rate 111 H 91 Respiratory Rate 18 Blood Pressure 145/90 H Pulse Oximetry Oxygen Delivery Room Air Fraction of Inspired Oxygen 12/28/23 16:00 12/28/23 17:58 12/28/23 19:46 Temperature 98.6 F Pulse Rate 91 84 80 Respiratory Rate 20 Blood Pressure 139/94 H Pulse Oximetry 96 Oxygen Delivery Fraction of Inspired Oxygen 12/28/23 20:00 12/28/23 22:00 12/28/23 20:00 Temperature Pulse Rate 81 85 85 Respiratory Rate 20 Blood Pressure Pulse Oximetry 96 Oxygen Delivery Room Air Fraction of Inspired Oxygen 12/29/23 00:00 12/29/23 00:00 12/29/23 00:00 Temperature 98.4 F Pulse Rate 85 84 82 Respiratory Rate 20 18 Blood Pressure 131/85 Pulse Oximetry 96 95 Oxygen Delivery Room Air Fraction of Inspired Oxygen 12/29/23 02:00 12/29/23 04:00 12/29/23 04:00 Temperature Pulse Rate 83 83 Respiratory Rate 18 Blood Pressure 131/85 Pulse Oximetry 95 Oxygen Delivery Room Air Fraction of Inspired Oxygen 12/29/23 04:00 12/29/23 04:00 12/29/23 06:00 Temperature 98.3 F Pulse Rate 85 87 90 Respiratory Rate 18 Blood Pressure 132/85 Pulse Oximetry 98 Oxygen Delivery Fraction of Inspired Oxygen 12/29/23 08:00 12/29/23 08:00 12/29/23 08:00 Temperature 98.2 F Pulse Rate 87 79 Respiratory Rate 16 Blood Pressure 126/75 Pulse Oximetry 97 Oxygen Delivery Room Air Fraction of Inspired Oxygen 12/29/23 10:00 Temperature Pulse Rate 84 Respiratory Rate Blood Pressure Pulse Oximetry Oxygen Delivery Fraction of Inspired Oxygen Intake/Output Intake/Output: Intake & Output 12/26/23 12/27/23 12/28/23 12/29/23 23:59 23:59 23:59 23:59 Intake Total 3270 3510.5 Output Total 3100 300 Balance 170 3210.5 Meds/Results Medications: Active Medications Generic Name Dose Route Start Last Admin Trade Name Freq PRN Reason Stop Dose Admin Acetaminophen 650 mg 12/28/23 09:04 Acetaminophen 325 Mg Tablet PO Q4H PRN Mild Pain (1-3) or Fever Hydrocodone Bitart/Acetaminophen 1 tab 12/28/23 09:04 Hydrocodone/Acetaminophen (*Crx) 5-325 Mg Tablet PO Q4H PRN Pain Rated 4-6 Chlordiazepoxide HCl 25 mg 12/28/23 21:00 12/29/23 08:12 Chlordiazepoxide (*Crx) 25 Mg Capsule PO 25 mg Q12HR PARVEZ Administration Folic Acid 1 mg 12/29/23 09:00 12/29/23 08:12 Folic Acid 1 Mg Tablet PO 1 mg DAILY PARVEZ Administration Sodium Chloride 1,000 mls @ 125 mls/hr 12/28/23 09:05 12/29/23 08:13 Normal Saline Iv IV CONT 125 mls/hr .Q8H PARVEZ Administration Lorazepam 1 mg 12/28/23 13:16 Lorazepam Inj (*Crx) 2 Mg/Ml Vial IV PUSH Q4H PRN CIWA score 8 or above Multivitamins/Calcium 1 tablet 12/29/23 09:00 12/29/23 08:12 Therapeutic Multivitamins/Minerals Tab (*Bkc) PO 1 tablet QAM PARVEZ Administration Ondansetron HCl 4 mg 12/28/23 09:04 12/28/23 09:34 Ondansetron Inj 4 Mg/2 Ml Vial IV PUSH 4 mg Q4H PRN Administration Nausea Thiamine HCl 100 mg 12/29/23 09:00 12/29/23 08:12 Thiamine Hcl 100 Mg Tablet PO 100 mg QAM PARVEZ Administration Radiology Results: ITS Impressions Head CT 12/28/23 06:53 IMPRESSION: 1. Normal brain. Chest X-Ray 12/28/23 07:03 IMPRESSION: 1. No acute cardiopulmonary disease. Labs Labs: Laboratory Results - last 24 hr 12/28/23 12/28/23 12/29/23 11:37 14:34 05:02 WBC RBC Hgb Hct MCV MCH MCHC RDW Plt Count MPV Absolute Retic Percent Retic Immature Retic Fraction Retic Hgb Content Sodium 135 L Potassium 3.5 Chloride 109 H Carbon Dioxide 22 Anion Gap 4 BUN 3 L Creatinine 0.60 L Estim Creat Clear Calc 108 Estimated GFR > 60 Glucose 87 Lactic Acid 0.8 Calcium 7.9 L Magnesium 2.0 Iron 169 TIBC 310 % Saturation 55 H Total Bilirubin 0.8 AST 24 ALT 8 Alkaline Phosphatase 190 H Total Protein 6.0 L Albumin 3.2 L Vitamin B12 438.0 Folate 16.3 TSH (Reflex) 0.807 Urine Opiates Screen Negative Urine Methadone Screen Negative Ur Barbiturates Screen Positive A Ur Phencyclidine Scrn Negative Ur Amphetamine Screen Negative U Benzodiazepines Scrn Negative Urine Cocaine Screen Negative U Cannabinoids Screen Negative 12/29/23 06:42 WBC 7.0 RBC 3.89 L Hgb 11.0 L Hct 34.5 L MCV 88.7 MCH 28.3 MCHC 31.9 L RDW 15.4 H Plt Count 185 MPV 9.9 Absolute Retic 0.05 Percent Retic 1.38 Immature Retic Fraction 12.8 Retic Hgb Content 29.6 Sodium Potassium Chloride Carbon Dioxide Anion Gap BUN Creatinine Estim Creat Clear Calc Estimated GFR Glucose Lactic Acid Calcium Magnesium Iron TIBC % Saturation Total Bilirubin AST ALT Alkaline Phosphatase Total Protein Albumin Vitamin B12 Folate TSH (Reflex) Urine Opiates Screen Urine Methadone Screen Ur Barbiturates Screen Ur Phencyclidine Scrn Ur Amphetamine Screen U Benzodiazepines Scrn Urine Cocaine Screen U Cannabinoids Screen
--- NOTE | 2023-12-29 21:26 | PC.NURSE ---
SBAR tubed to Nitesh RN and verbal report given. Patient transported via bed to [facility] bed 2 with all of his belongings. No change in assessment from previous.
[2023-12-30 04:58] VITALS: BP 130/89; PULSE 75; RESP 16; TEMP 36.5; O2SAT 97
[2023-12-30] MEDS: chlordiazePOXIDE (*CRX) 25 MG CAPSULE PO (09:06)
[2023-12-30] MEDS: THIAMINE HCL 100 MG TABLET PO (09:06)
[2023-12-30] MEDS: FOLIC ACID 1 MG TABLET PO (09:09)
[2023-12-30] MEDS: THERAPEUTIC MULTIVITAMINS/MINERALS TAB (*BKC) 1 TABLET PO (09:09)
--- NOTE | 2023-12-30 14:53 | P.PNIM_ITS ---
Progress Note: A&P Assessment and Plan (1) Anemia: Code(s): D64.9 - Anemia, unspecified Status: Acute (2) Alcohol withdrawal seizure: Code(s): F10.939 - Alcohol use, unspecified with withdrawal, unspecified; R56.9 - Unspec ified convulsions Status: Acute (3) Tobacco abuse: Code(s): Z72.0 - Tobacco use Status: Acute (4) Depression with anxiety: Code(s): F41.8 - Other specified anxiety disorders Status: Acute (5) Alcoholism: Code(s): F10.20 - Alcohol dependence, uncomplicated Status: Acute Plan (1) Alcohol withdrawal seizure: Code(s): F10.939 - Alcohol use, unspecified with withdrawal, unspecified; R56.9 - Unspecified convulsions Status: Acute Assessment and Plan: * CIWA protocol, changed Librium to PRN witih CIWA protocol with symptom triggered treatment * Thiamine, folic acid, potassium, magnesium, MVI ordered Patient still has anxiety, mild hand tremor, patient denies visual hallucination monitor one more night (2) Alcohol abuse: Code(s): F10.10 - Alcohol abuse, uncomplicated Status: Acute Assessment and Plan: * Willing to consider rehab after detox * Care coordination consulted * counseled about alcohol cessation (3) Tobacco abuse: Code(s): Z72.0 - Tobacco use Status: Acute Assessment and Plan: * Consider nicotine patch if needed * (4) Bipolar disorder: Code(s): F31.9 - Bipolar disorder, unspecified Status: Acute Assessment and Plan: * Would likely benefit from mood stabilizer after detox * (5) Hypertension: Code(s): I10 - Essential (primary) hypertension Status: Acute Assessment and Plan: * Mildly elevated at admission * Monitor * (6) Anemia: Code(s): D64.9 - Anemia, unspecified Status: Acute Assessment and Plan: * Lab evaluation initiated No iron deficiency Hemoglobin stable, possible due to in alcohol toxication DVT prophylaxis on Sq lovenox Subjective Date/time seen: 12/30/23 14:53 Interval history: Patient comfortable at bedside However patient this afternoon stated he wants to leave AMA I went to his room and advised against leaving however patient insisted he is leaving. Review of Systems Review of Systems: All systems reviewed & are unremarkable except as noted in HPI and below Exam Narrative: HEENT: PERRL, sclerae nonicteric, NECK: No JVD, adenopathy, or thyromegaly CHEST: Clear to auscultation. Normal effort. HEART: NL S1/S2, regular, no murmur ABDOMEN: BS+, soft, nontender, no mass, no bruits EXTREMITIES: No cyanosis, edema, or clubbing NEUROLOGIC: CN intact and symmetric to inspection. Tone and strength symmetric. DTR's hyporeflexic but symmetric. MUSCULOSKELETAL: Surgically absent distal right foot and distal left fingers. mild hand tremor bilaterally PSYCH: Anxious, oriented x3,. Speech slow but clear, Pleasant and cooperative. Objective Data Vital Signs Vital Signs: Vital Signs - 24 hr 12/29/23 16:00 12/29/23 16:00 12/29/23 16:00 Temperature 98.5 F Pulse Rate 75 78 Respiratory Rate 18 Blood Pressure 138/87 Pulse Oximetry 98 Oxygen Delivery Room Air 12/29/23 18:00 12/29/23 20:00 12/29/23 21:24 Temperature 98.3 F Pulse Rate 82 82 86 Respiratory Rate 18 16 Blood Pressure 132/86 Pulse Oximetry 98 99 Oxygen Delivery Room Air 12/30/23 04:58 12/30/23 08:00 Temperature 97.7 F Pulse Rate 75 Respiratory Rate 16 Blood Pressure 130/89 Pulse Oximetry 97 Oxygen Delivery Room Air Intake/Output Intake/Output: Intake & Output 12/27/23 12/28/23 12/29/23 12/30/23 23:59 23:59 23:59 23:59 Intake Total 3270 7510.5 1048 Output Total 3100 3100 1600 Balance 170 4410.5 -552 Meds/Results Medications: Active Medications Generic Name Dose Route Start Last Admin Trade Name Freq PRN Reason Stop Dose Admin Acetaminophen 650 mg 12/28/23 09:04 Acetaminophen 325 Mg Tablet PO Q4H PRN Mild Pain (1-3) or Fever Hydrocodone Bitart/Acetaminophen 1 tab 12/28/23 09:04 Hydrocodone/Acetaminophen (*Crx) 5-325 Mg Tablet PO Q4H PRN Pain Rated 4-6 Chlordiazepoxide HCl 25 mg 12/30/23 10:56 Chlordiazepoxide (*Crx) 25 Mg Capsule PO TID PRN If CIWA score >8 Folic Acid 1 mg 12/29/23 09:00 12/30/23 09:09 Folic Acid 1 Mg Tablet PO 1 mg DAILY PARVEZ Administration Sodium Chloride 1,000 mls @ 125 mls/hr 12/28/23 09:05 12/29/23 17:09 Normal Saline Iv IV CONT 125 mls/hr .Q8H PARVEZ Administration Lorazepam 1 mg 12/28/23 13:16 Lorazepam Inj (*Crx) 2 Mg/Ml Vial IV PUSH Q4H PRN CIWA score 8 or above Multivitamins/Calcium 1 tablet 12/29/23 09:00 12/30/23 09:09 Therapeutic Multivitamins/Minerals Tab (*Bkc) PO 1 tablet QAM PARVEZ Administration Ondansetron HCl 4 mg 12/28/23 09:04 12/28/23 09:34 Ondansetron Inj 4 Mg/2 Ml Vial IV PUSH 4 mg Q4H PRN Administration Nausea Thiamine HCl 100 mg 12/29/23 09:00 12/30/23 09:06 Thiamine Hcl 100 Mg Tablet PO 100 mg QAM PARVEZ Administration Radiology Results: ITS Impressions Head CT 12/28/23 06:53 IMPRESSION: 1. Normal brain. Chest X-Ray 12/28/23 07:03 IMPRESSION: 1. No acute cardiopulmonary disease. Quality VTE Prophylaxis VTE prophylaxis: mechanical ordered
--- NOTE | 2023-12-30 14:58 | PM.IMPN ---
Subjective Date/time seen: 12/30/23 14:58 Interval history: Nurse just called me and stated that patient left AMA, despite that i counseled him against it earlier. Patient left AMA. Objective Data Vital Signs Vital Signs: Vital Signs - 24 hr 12/29/23 16:00 12/29/23 16:00 12/29/23 16:00 Temperature 98.5 F Pulse Rate 75 78 Respiratory Rate 18 Blood Pressure 138/87 Pulse Oximetry 98 Oxygen Delivery Room Air 12/29/23 18:00 12/29/23 20:00 12/29/23 21:24 Temperature 98.3 F Pulse Rate 82 82 86 Respiratory Rate 18 16 Blood Pressure 132/86 Pulse Oximetry 98 99 Oxygen Delivery Room Air 12/30/23 04:58 12/30/23 08:00 Temperature 97.7 F Pulse Rate 75 Respiratory Rate 16 Blood Pressure 130/89 Pulse Oximetry 97 Oxygen Delivery Room Air Intake/Output Intake/Output: Intake & Output 12/27/23 12/28/23 12/29/23 12/30/23 23:59 23:59 23:59 23:59 Intake Total 3270 7510.5 1048 Output Total 3100 3100 1600 Balance 170 4410.5 -552 Meds/Results Medications: Active Medications Generic Name Dose Route Start Last Admin Trade Name Freq PRN Reason Stop Dose Admin Acetaminophen 650 mg 12/28/23 09:04 Acetaminophen 325 Mg Tablet PO Q4H PRN Mild Pain (1-3) or Fever Hydrocodone Bitart/Acetaminophen 1 tab 12/28/23 09:04 Hydrocodone/Acetaminophen (*Crx) 5-325 Mg Tablet PO Q4H PRN Pain Rated 4-6 Chlordiazepoxide HCl 25 mg 12/30/23 10:56 Chlordiazepoxide (*Crx) 25 Mg Capsule PO TID PRN If CIWA score >8 Enoxaparin Sodium 40 mg 12/31/23 09:00 Enoxaparin 40 Mg/0.4 Ml Syringe SUB-Q DAILY PARVEZ Folic Acid 1 mg 12/29/23 09:00 12/30/23 09:09 Folic Acid 1 Mg Tablet PO 1 mg DAILY PARVEZ Administration Sodium Chloride 1,000 mls @ 125 mls/hr 12/28/23 09:05 12/29/23 17:09 Normal Saline Iv IV CONT 125 mls/hr .Q8H PARVEZ Administration Lorazepam 1 mg 12/28/23 13:16 Lorazepam Inj (*Crx) 2 Mg/Ml Vial IV PUSH Q4H PRN CIWA score 8 or above Multivitamins/Calcium 1 tablet 12/29/23 09:00 12/30/23 09:09 Therapeutic Multivitamins/Minerals Tab (*Bkc) PO 1 tablet QAM PARVEZ Administration Ondansetron HCl 4 mg 12/28/23 09:04 12/28/23 09:34 Ondansetron Inj 4 Mg/2 Ml Vial IV PUSH 4 mg Q4H PRN Administration Nausea Thiamine HCl 100 mg 12/29/23 09:00 12/30/23 09:06 Thiamine Hcl 100 Mg Tablet PO 100 mg QAM PARVEZ Administration Radiology Results: ITS Impressions Head CT 12/28/23 06:53 IMPRESSION: 1. Normal brain. Chest X-Ray 12/28/23 07:03 IMPRESSION: 1. No acute cardiopulmonary disease.
--- NOTE | 2023-12-30 15:24 | PC.NURSE ---
pt stated he wanted to leave and he has to get out of here. This nurse told pt that he was not being discharged but I would call the doctor to let them know. MD notified and came up to speak to pt. came out to nurses station to inform this RN of pt leaving AMA. This RN got AMA form and brought it to pt. While signing, pt was educated by RN about risks of leaving including having another seizure and including . Pt stated he knows about the risks and wanted to leave anyway. After AMA form was signed, this RN took out IV. [employer] was called to help get pt dressed and pt was taken out by wheelchair by [employer]. Provider was notified that pt left AMA.
== END 2023-12-30 15:00 | disposition left against medical advice (07) ==
LOC: ANHED 07:19 → ANHIMU 10:11 → ANH3MEDSUR 12-29 21:37
PROVIDERS: Student in an Organized Health Care Education/Training Program; Admitting Provider Internal Medicine; Emergency Provider Emergency Medicine; Visit Provider Internal Medicine
DX: F10.130 Alcohol abuse with withdrawal, uncomplicated (principal); R56.9 Unspecified convulsions; E87.20 Acidosis, unspecified; I10 Essential (primary) hypertension; D64.9 Anemia, unspecified; F31.9 Bipolar disorder, unspecified; M79.671 Pain in right foot; G89.29 Other chronic pain; F17.210 Nicotine dependence, cigarettes, uncomplicated; Z59.00 Homelessness unspecified; Z91.141 Patient's other noncompliance with medication regimen due to financial hardship; Z86.73 Personal history of transient ischemic attack (TIA), and cerebral infarction without residual deficits
CPT/HCPCS: 36415; 70450; 71045; 73600; 73620; 80053; 80307; 82077; 82550; 82607; 82746; 83540; 83550; 83605; 83735; 84443; 85025; 85027; 85046; 96360; 96361; 96365; 96366; 96374; 96375; 99285; A9270; G0378; G0379; J1953; J2405; J2560; J3411; J3475; J7030

== ENCOUNTER 2024-02-14 10:24 | Emergency (ER) | payer OTHER, SELFPAY ==
[2024-02-14 10:46] VITALS: BP 146/98; PULSE 51; RESP 18; TEMP 36.6; O2SAT 100
[2024-02-14 10:52] VITALS: RESP 20; O2SAT 98
--- NOTE | 2024-02-14 11:12 | ED.GENADULT ---
HPI - General Adult General Chief complaint: Unspecified Stated complaint: 25 seizures, panic attacks, foot pain, homeless Time Seen by Provider: 02/14/24 11:02 History of Present Illness HPI narrative: patient is a 48-year-old gentleman presents emergency department chief complaint of weakness. Patient reports that he was at [facility] and was discharged in the last 24 hours the patient states that he was discharged to [facility] and then walked [place] the [facility] [employer] since that he had a little bit of a difficult time walking over to [facility] and reports that he was there too long. The patient reports he has had multiple panic attacks since he was discharged as he is worried about multiple different things. Related Data Allergies Allergy/AdvReac Type Severity Reaction Status Date / Time No Known Allergies Allergy Verified 12/28/23 00:35 Review of Systems Review of Systems: A 10 system review of systems was completed on the patient and is negative except for what is stated in the HPI. Nursing and ancillary documentation was reviewed. 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 Distal left fingers. Anxiety Seizures Surgical History Surgical History History of appendectomy Family History Family History Father Alcohol abuse Tobacco abuse Social History Social History Social History: Smokes 5 cigarettes per day, more when he can afford it. Started smoking around age 25. Drinks about 72 oz of beer per day (3 x 24oz cans). Rarely drinks any other alcoholic beverages. He is estranged from his mother. No children. He is homeless. He denies any illicit drugs. Code status full code Smoking packs per day: 0.25 Smoking cigarettes per day: 5.0 Years smoked: 23 Smoking pack-years: 5.75 Smoking status: Current every day smoker Tobacco type: cigarettes Second hand tobacco smoke exposure: Yes Additional smoking assessment comments: patient states its a different amount all the time Alcohol intake: current Drinks per week: 42 Substance use: never Substance use type: does not use Do You Feel Safe in your Home?: No Lack of Transportation: YES Lack of Food: Often True Current Housing: I Do Not Have Housing Concerned About Future Housing: YES Difficulty Paying Gas/Electric Bills: Decline to Answer Difficulty Paying for Meds: Decline to Answer Currently Unemployed: Decline to Answer Education: Decline to Answer Difficulty w/ Childcare or Family Care: Decline to Answer Living arrangements: homeless Spiritual care concerns: No Exam Narrative: GENERAL: Well-appearing, well-nourished, and in no acute distress. HEAD: Normocephalic, atraumatic. EYES: PERRLA and EOMI. ENT: Nares clear, no rhinorrhea or epistaxis. Mucous membranes moist. NECK: Supple. CHEST: Clear to auscultation. No respiratory distress. HEART: Regular rate and rhythm. No murmur heard. Normal peripheral pulses. ABDOMEN: Soft, nontender, nondistended, normal active bowel sounds. EXTREMITIES: Normal range of motion he chronic wounds are well approximated on the right foot. No edema. SKIN: Warm, dry, no rash. NEURO: No focal deficits. Alert and oriented x3. PSYCH: Normal mood and affect. Course Vital Signs Vital signs: Vital Signs Temperature 36.6 C 02/14/24 10:46 Pulse Rate 51 L 02/14/24 10:46 Respiratory Rate 18 02/14/24 10:46 Blood Pressure 146/98 H 02/14/24 10:46 Pulse Oximetry 100 02/14/24 10:46 Oxygen Delivery Room Air 02/14/24 10:46 Temperature 36.8 C 02/14/24 11:28 Pulse Rate 96 02/14/24 11:28 Respiratory Rate 18 02/14/24 11:28 Blood Pressure 142/99 H 02/14/24 11:28 Pulse Oximetry 99 02/14/24 11:28 Oxygen Delivery Room Air 02/14/24 10:46 Medical Decision Making MDM Narrative Medical decision making narrative: the patient is currently alert oriented there is no acute emergency medical condition present. The patient will be discharged to follow-up as an outpatient. Vital Signs Vital Signs: Vital Signs Temperature 36.6 C 02/14/24 10:46 Pulse Rate 51 L 02/14/24 10:46 Respiratory Rate 18 02/14/24 10:46 Blood Pressure 146/98 H 02/14/24 10:46 Pulse Oximetry 100 02/14/24 10:46 Oxygen Delivery Room Air 02/14/24 10:46 Temperature 36.8 C 02/14/24 11:28 Pulse Rate 96 02/14/24 11:28 Respiratory Rate 18 02/14/24 11:28 Blood Pressure 142/99 H 02/14/24 11:28 Pulse Oximetry 99 02/14/24 11:28 Oxygen Delivery Room Air 02/14/24 10:46 Discharge Plan Discharge Clinical Impression: Encounter for medical screening examination Patient Disposition: Home, Self-Care Condition: Stable Instructions: Antibiotic Form, Normal Exam (ED) Additional Instructions: Today there were no acute emergency medical conditions. It is recommended that you follow-up with your primary care provider and also contact community resources for additional assistance with housing Patient Language: Cambodian Prescriptions: No Action levetiracetam 1,000 mg tablet 1,000 mg PO BID 30 Days Qty: 60 0RF famotidine [Pepcid] 40 mg tablet 40 mg PO DAILY 30 Days Qty: 30 0RF folic acid 1 mg Tablet 1 mg PO DAILY Qty: 30 6RF thiamine HCl (vitamin B1) [Vitamin B-1] 100 mg Tablet 100 mg PO QAM Qty: 30 6RF ibuprofen 600 mg tablet 600 mg PO TID Qty: 20 0RF Follow-up/Referrals: UNKNOWN,DOCTOR [Non-Staff] - Maribel Norman DO [Physician] - Time of Disposition: 12:20
[2024-02-14 11:28] VITALS: BP 142/99; PULSE 96; RESP 18; TEMP 36.8; O2SAT 99
[2024-02-14 12:31] VITALS: BP 120/86; PULSE 91; RESP 20; TEMP 36.8; O2SAT 100
--- OUTSIDE RECORDS SUMMARY | 2024-02-18 05:11 | XMS_ITS | CONTINUITY OF CARE DOCUMENT ---
Author Name casey peña Address Unknown Organization [facility] Address [address] [place] [address] Phone [phone] Care Team Providers Care Logistics Planner Name Role Phone Sanket Telles MD Unavailable Sanket Telles MD Unavailable INSURANCE PROVIDERS Payer name Policy type / Coverage type [place] red libertarian ID [employer] MEDICA[employer] Medicaid [id number]
--- OUTSIDE RECORDS SUMMARY | 2024-02-18 09:09 | XMS_ITS | CONTINUITY OF CARE DOCUMENT ---
Author Name casey peña Address Unknown Organization [facility] Address [address] [place] [address] Phone [phone] Care Team Providers Care Bobtailer Name Role Phone Sanket Telles MD Unavailable Sanket Telles MD Unavailable INSURANCE PROVIDERS Payer name Policy type / Coverage type [place] red green party ID [employer] MEDICAID Medicaid [id number]
== END 2024-02-14 12:52 | disposition home or self-care (01) ==
PROVIDERS: Emergency Provider Emergency Medicine
DX: R53.1 Weakness (principal); F31.9 Bipolar disorder, unspecified; F10.20 Alcohol dependence, uncomplicated; I10 Essential (primary) hypertension; E78.5 Hyperlipidemia, unspecified; Z89.421 Acquired absence of other right toe(s); Z87.891 Personal history of nicotine dependence; Z59.00 Homelessness unspecified
CPT/HCPCS: 99282

== ENCOUNTER 2024-02-14 13:03 | Emergency (ER) | payer OTHER, SELFPAY ==
[2024-02-14 13:37] VITALS: BP 134/76; PULSE 102; RESP 18; O2SAT 98
--- NOTE | 2024-02-14 14:11 | ED_ITS ---
HPI - General Adult General Chief complaint: Recheck/Abnormal Lab/Rx Stated complaint: needs dressing re done Time Seen by Provider: 02/14/24 14:00 Source: patient and old records reviewed Mode of arrival: wheelchair Limitations: no limitations History of Present Illness HPI narrative: Patient is a 48-year-old male who presents the ED for wound care. Patient has history of multiple previous surgeries to R foot, R midfoot amputation. Was seen in our ED earlier for various complaints. Had his foot re-wrapped at that time. Requesting his foot to be re-bandaged again. Denies injury. Per records, patient was also recently discharged from another hospital prior to coming to the ED here earlier. He is homeless. Related Data Allergies Allergy/AdvReac Type Severity Reaction Status Date / Time No Known Allergies Allergy Verified 12/28/23 00:35 Review of Systems Review of Systems: All systems reviewed & are unremarkable except as noted in HPI. 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 Distal left fingers. Anxiety Seizures Surgical History Surgical History History of appendectomy Family History Family History Father Alcohol abuse Tobacco abuse Social History Social History Social History: Smokes 5 cigarettes per day, more when he can afford it. Started smoking around age 25. Drinks about 72 oz of beer per day (3 x 24oz cans). Rarely drinks any other alcoholic beverages. He is estranged from his mother. No children. He is homeless. He denies any illicit drugs. Code status full code Smoking packs per day: 0.25 Smoking cigarettes per day: 5.0 Years smoked: 23 Smoking pack-years: 5.75 Smoking status: Current every day smoker Tobacco type: cigarettes Second hand tobacco smoke exposure: Yes Additional smoking assessment comments: patient states its a different amount all the time Alcohol intake: current Drinks per week: 42 Substance use: never Substance use type: does not use Do You Feel Safe in your Home?: No Lack of Transportation: YES Lack of Food: Often True Current Housing: I Do Not Have Housing Concerned About Future Housing: YES Difficulty Paying Gas/Electric Bills: Decline to Answer Difficulty Paying for Meds: Decline to Answer Currently Unemployed: Decline to Answer Education: Decline to Answer Difficulty w/ Childcare or Family Care: Decline to Answer Living arrangements: homeless Spiritual care concerns: No Exam Narrative: GENERAL: Appears older than stated age, disheveled, non-toxic, in no acute distress. HEAD: Normocephalic, atraumatic. RESPIRATORY: Airway patent, respirations nonlabored. CARDIOVASCULAR: Regular rate and rhythm MUSCULOSKELETAL: Moves all extremities. No gross deformities. Midfoot amputation to right foot is well approximated and healed. Several previous surgical scars, all appear to be chronic and well healed. Scattered areas of scabbing and dry scaling skin to R foot. No evidence of infection. SKIN: Warm, dry, normal color. NEURO: A&O X3. Speech clear. No ataxic movements. PSYCHIATRIC: Appropriate mood and affect. Normal interaction. Course Vital Signs Vital signs: Vital Signs Pulse Rate 102 H 02/14/24 13:37 Respiratory Rate 18 02/14/24 13:37 Blood Pressure 134/76 02/14/24 13:37 Pulse Oximetry 98 02/14/24 13:37 Pulse Rate 102 H 02/14/24 13:37 Respiratory Rate 18 02/14/24 13:37 Blood Pressure 134/76 02/14/24 13:37 Pulse Oximetry 98 02/14/24 13:37 Medical Decision Making MDM Narrative Medical decision making narrative: Foot was re-bandaged with extra padding as requested by patient. Patient given Tylenol. Will be discharged. Given housing and wound care information. This is a chronic wound, no recent injury or systemic signs of infection to suggest need for further imaging at this time. Medical Records Medical records reviewed: Yes I reviewed the external patient's medical records. Vital Signs Vital Signs: Vital Signs Pulse Rate 102 H 02/14/24 13:37 Respiratory Rate 18 02/14/24 13:37 Blood Pressure 134/76 02/14/24 13:37 Pulse Oximetry 98 02/14/24 13:37 Pulse Rate 102 H 12/14/24 13:37 Respiratory Rate 18 02/14/24 13:37 Blood Pressure 134/76 02/14/24 13:37 Pulse Oximetry 98 02/14/24 13:37 Discharge Plan Discharge Clinical Impression: Encounter for wound care Patient Disposition: Home, Self-Care Condition: Stable Instructions: Antibiotic Form, Chronic Wounds (ED) Additional Instructions: Continue to wrap wound as needed. Follow up with your primary care doctor for further evaluation. [facility]: [phone] Patient Language: Sami Prescriptions: No Action levetiracetam 1,000 mg tablet 1,000 mg PO BID 30 Days Qty: 60 0RF famotidine [Pepcid] 40 mg tablet 40 mg PO DAILY 30 Days Qty: 30 0RF folic acid 1 mg Tablet 1 mg PO DAILY Qty: 30 6RF thiamine HCl (vitamin B1) [Vitamin B-1] 100 mg Tablet 100 mg PO QAM Qty: 30 6RF ibuprofen 600 mg tablet 600 mg PO TID Qty: 20 0RF Follow-up/Referrals: PHYSICIAN,[facility] [Primary Care Provider] - Time of Disposition: 14:12
[2024-02-14] MEDS: ACETAMINOPHEN 500 MG TABLET 1000 MG PO (14:32)
[2024-02-14 14:52] VITALS: RESP 18; O2SAT 98
--- OUTSIDE RECORDS SUMMARY | 2024-02-18 13:54 | XMS_ITS | CONTINUITY OF CARE DOCUMENT ---
Author Name casey peña Address Unknown Organization [facility] Address [address] [place] [address] Phone [phone] Care Team Providers Care Waiter/Waitress Counter Name Role Phone Sanket Telles MD Unavailable [phone] Sanket Telles MD Unavailable INSURANCE PROVIDERS Payer name Policy type / Coverage type [place] red green party ID [employer] MEDICAID Medicaid [id number]
--- OUTSIDE RECORDS SUMMARY | 2024-02-18 20:28 | XMS_ITS | CONTINUITY OF CARE DOCUMENT ---
Author Name casey peña Address Unknown Organization [facility] Address [address] [place] [address] Phone [phone] Care Team Providers Care Reroller Hand Name Role Phone Sanket Telles MD Unavailable Sanket Telles MD Unavailable INSURANCE PROVIDERS Payer name Policy type / Coverage type [place] red democrat ID [employer] MEDICAID Medicaid [id number]
== END 2024-02-14 15:08 | disposition home or self-care (01) ==
LOC: ANHED 14:56
PROVIDERS: Emergency Provider Physician Assistant
DX: S91.301A Unspecified open wound, right foot, initial encounter (principal); Z48.01 Encounter for change or removal of surgical wound dressing; I10 Essential (primary) hypertension; E78.5 Hyperlipidemia, unspecified; Z89.421 Acquired absence of other right toe(s); F31.9 Bipolar disorder, unspecified; F10.20 Alcohol dependence, uncomplicated; F17.210 Nicotine dependence, cigarettes, uncomplicated; Z59.00 Homelessness unspecified
CPT/HCPCS: 99283; A9270

== ENCOUNTER 2024-02-16 05:21 | Inpatient (IN) | payer OTHER, SELFPAY ==
[2024-02-16] VITALS (15 sets, daily range): BP systolic 106–134; BP diastolic 69–94; PULSE 78–128; RESP 16–20; TEMP 36.7–37.7; O2SAT 95–98; BMI 21.3
--- NOTE | ~2024-02-16 | CT_ITS ---
Clinical Indication: Chest pain, tachycardia CT Scan of the Chest with Contrast: Technique: Contiguous sections were acquired throughout the chest after intravenous administration of 100 cc of Omnipaque 350. Dose reduction technique was used on this scan by utilizing automated expos ure control and iterative reconstruction technique. The dose-length product (DLP) was 452.62 mGy-cm. Findings: There is no evidence of any significant mediastinal, hilar or axillary lymphadenopathy. There is no f illing defect in the pulmonary arterial tree to suggest pulmonary embolus. There is no evidence of ao rtic dissection or aneurysm. There is extensive wall thickening of the mid and distal esophagus, sugg estive of esophagitis. There is no evidence of pleural or pericardial effusion. There are small focal areas of groundglass opacity in the left upper lobe, most compatible with focal pneumonia/pneumonitis. Remainder of the lungs are essentially clear. Images through the upper abdomen reveal no abnormalities. There are multilevel mild compression defor mities in the spine, involving the T4, T7, T10, T11, and T12 vertebral bodies. Impression: No evidence of pulmonary embolus, aortic dissection, or aortic aneurysm. Focal groundglass opacities in the left upper lobe, most compatible with focal pneumonia. Extensive esophageal wall thickening is compatible with esophagitis. Correlate clinically. Multiple mild, chronic compression deformities in the spine, as above. Reviewed, dictated and finalized at [facility]. ING SHOW HOST Impression: No evidence of pulmonary embolus, aortic dissection, or aortic aneurysm. Focal groundglass opacities in the left upper lobe, most compatible with focal pneumonia. Extensive esophageal wall thickening is compatible with esophagitis. Correlate clinically. Multiple mild, chronic compression deformities in the spine, as above.
--- NOTE | ~2024-02-16 | XR_ITS ---
Portable chest x-ray Comparison: 12/28/2023 Clinical History: Cough Findings: Lungs are clear, without focal consolidation or pleural effusion. Possible COPD. Cardiome diastinal silhouette is stable. Chronic left rib fracture deformities noted. Impression: Clear lungs. COPD. Reviewed, dictated and finalized at [facility]. ICAL PROCESSING TECHNICIAN Impression: Clear lungs. COPD.
--- NOTE | 2024-02-16 05:24 | ECG_ITS ---
Test Date: 2024-02-16 06:23:49 Measurements Intervals [place] Rate: 125 P: 33 LA: 170 QRS: 43 QRSD: 81 T: 52 QT: 291 QTc: 420 Interpretive Statements SINUS TACHYCARDIA ABNORMAL RHYTHM ECG Compared to ECG 12/03/2023 08:26:54 T-wave abnormality no longer present Electronically Signed On 02-16-2024 12:04:17 [employer] by Kelvin Arias M.D.
[2024-02-16 05:50] LABS: Basophils Percent Auto 0.2 % (0.2-1.2); Eosinophils Percent Auto 0.2 % (0-4.4); Hematocrit 41.1 % (42.0-52.0); Hemoglobin 13.9 g/dL (14.0-18.0); Immature Granulocyte Absolute 0.08 K/mm3 (0.00-0.031); Immature Granulocyte Percent A 0.4 % (0-0.5); Lymphocytes Absolute Auto 1.14 K/mm3 (0.9-3.2); Lymphocytes Percent Auto 6.3 % (18.3-44.2); Mean Corpuscular HGB Conc 33.8 g/dl (32-36); Mean Corpuscular Hemoglobin 28.2 pg (26-34); Mean Corpuscular Volume 83.4 fl (80-100); Mean Platelet Volume 9.6 fl (7.4-10.4); Monocytes Absolute Auto 1.6 K/mm3 (0.1-0.6); Monocytes Percent Auto 8.9 % (2.6-8.5); Neutrophils Absolute Auto 15.2 K/mm3 (1.3-6.7); Platelet Count Result 269 k/mm3 (150-375); Red Blood Count 4.93 M/mm3 (4.6-6.20); Red Cell Distribution Width 16.3 % (11.5-14.5); White Blood Count 18.1 K/mm3 (4.5-10.0)
--- NOTE | 2024-02-16 05:54 | ED.URI ---
HPI - URI/Sore Throat General Chief Complaint: Upper Respiratory Infection Stated Complaint: CP WITH COUGHING, SICK X 2 DAYS History of Present Illness HPI Narrative: This is a 48-year-old male who is well known to this emergency department. He has a past medical history including alcohol abuse, alcohol withdrawal seizures, seizure disorder taking Keppra, bipolar depression and homelessness. Presents to the emergency department after calling EMS at a local bus stop. His chief complaint is that he has not been feeling well these past 2 days. He states he has had a cough and chest pain. EMS noted that he was tachycardic in the 130s to 160s. Patient appears dehydrated. He states he has been drinking alcohol most recently about 5 hours ago. Denies any recent seizures but states he has not been taking his medications. He has medications with him and his bags but states he is homeless and has nowhere to sit or rest or take the medications. He denies any recent injuries or trauma. He was recently seen here for wound care and was discharged. The patient endorses a cough and the cough is causing him chest pain. Denies any shortness a breath, nausea vomiting, abdominal pain or back pain. 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 Distal left fingers. Anxiety Seizures Surgical History Surgical History History of appendectomy Family History Family History Father Alcohol abuse Tobacco abuse Social History Social History Social History: Smokes 5 cigarettes per day, more when he can afford it. Started smoking around age 25. Drinks about 72 oz of beer per day (3 x 24oz cans). Rarely drinks any other alcoholic beverages. He is estranged from his mother. No children. He is homeless. He denies any illicit drugs. Code status full code Smoking packs per day: 0.25 Smoking cigarettes per day: 5.0 Years smoked: 23 Smoking pack-years: 5.75 Smoking status: Current every day smoker Tobacco type: cigarettes Second hand tobacco smoke exposure: Yes Additional smoking assessment comments: patient states its a different amount all the time Alcohol intake: current Drinks per week: 42 Substance use: never Substance use type: does not use Do You Feel Safe in your Home?: No Lack of Transportation: YES Lack of Food: Often True Current Housing: I Do Not Have Housing Concerned About Future Housing: YES Difficulty Paying Gas/Electric Bills: Decline to Answer Difficulty Paying for Meds: Decline to Answer Currently Unemployed: Decline to Answer Education: Decline to Answer Difficulty w/ Childcare or Family Care: Decline to Answer Living arrangements: homeless Spiritual care concerns: No Exam Narrative: GENERAL: Disheveled but not any acute distress, awake answers questions. Appears mildly intoxicated. Not ill or toxic appearing HEAD: [Normocephalic, atraumatic.] EYES: [PERRLA and EOMI.] ENT: Nares clear, no rhinorrhea or epistaxis. Mucous membranes moist. NECK: Supple. CHEST: [Clear to auscultation. No respiratory distress.] HEART: [Regular rate and rhythm]. No murmur heard. [Normal peripheral pulses.] ABDOMEN: [Soft, nondistended], [nontender], [No rigidity or guarding] EXTREMITIES: Foot midfoot amputation to the right foot, previous surgical scars bilaterally, scattered scabbing dry skin bilaterally. SKIN: Warm, dry, no rash. NEURO: [No focal deficits]. Alert and oriented [x3.] PSYCH: [Normal mood and affect.] Course Vital Signs Vital signs: Vital Signs Temperature 36.8 C 02/16/24 05:21 Pulse Rate 128 H 02/16/24 05:21 Respiratory Rate 18 02/16/24 05:21 Blood Pressure 126/94 H 02/16/24 05:21 Pulse Oximetry 98 02/16/24 05:21 Oxygen Delivery Room Air 02/16/24 05:21 Temperature 36.8 C 02/16/24 05:21 Pulse Rate 128 H 02/16/24 05:21 Respiratory Rate 18 02/16/24 05:21 Blood Pressure 126/94 H 02/16/24 05:21 Pulse Oximetry 98 02/16/24 05:21 Oxygen Delivery Room Air 02/16/24 05:21 MDM - URI/Sore Throat MDM Narrative Medical decision making narrative: 48-year-old homeless man presenting to the emergency room with chief complaint of feeling unwell and having cough and chest pain. Symptoms going on for 2 days. He is well known to this department and has a history of homelessness, alcohol abuse with alcohol withdrawal seizures, epilepsy on Keppra. Last drink 5 hours prior to arrival and states he has been drinking daily. Denies taking any of his Keppra recently. He has an unremarkable examination but is dry appearing and tachycardic with a pulse of 128. Blood pressure within normal limits, no tachypnea fever or hypoxia. He has clear breath sounds throughout both lung fraire. Does not appear to be going to any kind of alcohol withdrawals especially combined with the fact that he had a recent alcohol drink several hours ago. Overall disheveled appearance but not ill or uncomfortable. IV was established and he was given a fluid bolus with lactated Ringer's, supplements of thiamine folic acid and magnesium for his alcohol abuse. I gave him a dose of Keppra as he has not had his antiseizure medications recently according to himself. Laboratory studies including a CBC, CMP, lactic acid, troponin, EKG and chest x-ray were obtained as well as a COVID flu swab. Patient's workup reveals a leukocytosis of 18.1, no significant anemia or platelet concerns. His electrolyte panel is largely unremarkable without any significant derangements, BUN and creatinine are normal. Lactic acid very mildly above normal at 2.1. Normal glucose. LFTs within normal range. Negative initial troponin. Negative COVID fluid RSV swabs. Chest x-ray without findings. Patient was re-evaluated and still complaining of chest pain. He states that hurts to take a deep breath. Tells me has remote history of blood clot. At this time given his largely unremarkable workup but having persistent tachycardia despite fluid resuscitation and a white count elevation and persistent pleuritic chest pain I did order a CT angiography of his chest to further delineate. Urinalysis also obtained at this time. CT angiography shows no pulmonary embolism but does show a left upper lobe pneumonia. Patient does have a history of alcohol withdrawal and seizure disorder some concern this could be an aspiration type pneumonia. He was started on Unasyn and azithromycin for coverage at this time and requires hospitalization. He had some improvement with fluid resuscitation here in the emergency department. I re-evaluated frequently and he states that he does not have any tremors or anxiety, does not feel like he is going through any kind withdrawals. I informed him of the workup and plan for admission. I discussed the case with the hospitalist over the phone and we went over patient's imaging studies, laboratory studies, plan of care going forward and his high risk factors including history of alcohol withdrawals and seizure disorder. He will be admitted for pneumonia and was already given a dose of his home Keppra here in the ED. Admitted to the IMU. Medical Records Attestation: I reviewed the patient's medical records. Lab Data Attestation: I reviewed the patient's lab results. 02/16/24 05:40 02/16/24 05:40 Labs: Lab Results 02/16/24 02/16/24 Range/Units 05:40 07:03 WBC 18.1 H (4.5-10.0) K/mm3 RBC 4.93 (4.6-6.20) M/mm3 Hgb 13.9 L (14.0-18.0) g/dL Hct 41.1 L (42.0-52.0) % MCV 83.4 (80-100) fl MCH 28.2 (26-34) pg MCHC 33.8 (32-36) g/dl RDW 16.3 H (11.5-14.5) % Plt Count 269 (150-375) k/mm3 MPV 9.6 (7.4-10.4) fl Immature Gran % (Auto) 0.4 (0-0.5) % Neut % (Auto) 84.0 H (45.5-73.1) % Lymph % (Auto) 6.3 L (18.3-44.2) % [place] % (Auto) 8.9 H (2.6-8.5) % Eos % (Auto) 0.2 (0-4.4) % Baso % (Auto) 0.2 (0.2-1.2) % Lymph # (Auto) 1.14 (0.9-3.2) K/mm3 [place] # (Auto) 1.6 H (0.1-0.6) K/mm3 Eos # (Auto) 0.0 (0-0.3) K/mm3 Baso # (Auto) 0.0 (0.0-0.1) K/mm3 Abs Immat Gran (auto) 0.08 H (0.00-0.031) K/mm3 Absolute Neuts (auto) 15.2 H (1.3-6.7) K/mm3 Absolute Nucleated RBC 0.000 (0.0-0.012) K/mm3 Nucleated RBC % 0.0 (0.0-0.2) % Sodium 131 L (137-145) mmol/L Potassium 3.9 (3.4-5.0) mmol/L Chloride 95 L (98-107) mmol/L Carbon Dioxide 29 (22-30) mmol/L Anion Gap 7 (4-12) mmol/L BUN 6 L (9-20) mg/dL Creatinine 0.50 L (0.7-1.3) mg/dL Estim Creat Clear Calc 140 ml/min Estimated GFR > 60 (59 - ) Glucose 125 H (65-110) mg/dL Lactic Acid 2.1 H (0.7-2.0) mmol/L Calcium 9.0 (8.4-10.2) mg/dL Total Bilirubin 0.5 (0.2-1.3) mg/dL AST 57 (17-59) U/L ALT 16 (6-50) U/L Alkaline Phosphatase 126 (38-126) U/L Troponin I < 0.012 (0.000-0.034) ng/mL Total Protein 7.0 (6.3-8.2) g/dL Albumin 4.6 (3.5-5.1) g/dL Urine Color Pending Urine Appearance Pending Urine pH Pending Ur Specific [place] Pending Urine Protein Pending Urine Glucose (UA) Pending Urine Ketones Pending Ur Blood (Man) Pending Urine Nitrate Pending Urine Bilirubin Pending Urine Urobilinogen Pending Leukocyte Esterase Rfl Pending Influenza A (RT-PCR) Negative (Negative) Influenza B (RT-PCR) Negative (Negative) RSV (RT-PCR) Negative (Negative) SARS-CoV-2 RNA (RT-PCR) Negative (Negative) Imaging Data Attestation: I personally reviewed and interpreted this imaging study as follows: My impression: Impressions Chest X-Ray 02/16/24 06:23 Impression: Clear lungs. COPD. Chest CTA 02/16/24 07:09 Impression: No evidence of pulmonary embolus, aortic dissection, or aortic aneurysm. Focal groundglass opacities in the left upper lobe, most compatible with focal pneumonia. Extensive esophageal wall thickening is compatible with esophagitis. Correlate clinically. Multiple mild, chronic compression deformities in the spine, as above. Critical Care Time Critical Care Time Critical Care Time: Yes Total Critical Care Time: 35 Discharge Plan Discharge Clinical Impression: Pneumonia, Alcohol abuse, Seizure disorder, History of homeless, Chest pain, pleuritic Patient Disposition: Still a Patient Condition: Stable Patient Language: B[place] Prescriptions: No Action levetiracetam 1,000 mg tablet 1,000 mg PO BID 30 Days Qty: 60 0RF famotidine [Pepcid] 40 mg tablet 40 mg PO DAILY 30 Days Qty: 30 0RF folic acid 1 mg Tablet 1 mg PO DAILY Qty: 30 6RF thiamine HCl (vitamin B1) [Vitamin B-1] 100 mg Tablet 100 mg PO QAM Qty: 30 6RF ibuprofen 600 mg tablet 600 mg PO TID Qty: 20 0RF Follow-up/Referrals: PHYSICIAN,[facility] [Primary Care Provider] - Time of Disposition: 07:34
[2024-02-16 05:58] LABS: Alanine Aminotransferase 16 U/L (6-50); Albumin Level 4.6 g/dL (3.5-5.1); Alkaline Phosphatase 126 U/L (38-126); Anion Gap 7 mmol/L (4-12); Aspartate Amino Transferase 57 U/L (17-59); Bilirubin,Total 0.5 mg/dL (0.2-1.3); Blood Urea Nitrogen 6 mg/dL (9-20); Carbon Dioxide 29 mmol/L (22-30); Chloride 95 mmol/L (98-107); Estimated CRCL calculation 140 ml/min; Estimated Glomerular Filt Rate > 60; Glucose 125 mg/dL (65-110); Lactic Acid Reflex 2.1 mmol/L (0.7-2.0); Potassium 3.9 mmol/L (3.4-5.0); Sodium 131 mmol/L (137-145)
[2024-02-16] MEDS: levETIRAcetam 1500MG/NACL100ML 1,500 MG/100 ML BAG 400 MG IVPB (06:00)
[2024-02-16] MEDS: THIAMINE HCL IV CONT (06:05)
[2024-02-16] MEDS: MAGNESIUM SULFATE IV CONT (06:05)
[2024-02-16] MEDS: FOLIC ACID IV CONT (06:05)
[2024-02-16] MEDS: [UNRECOGNIZED DRUG - OTHER] IV CONT (06:05)
[2024-02-16 06:09] LABS: Troponin I < 0.012 ng/mL (0.000-0.034)
--- NOTE | 2024-02-16 06:15 | PC.NURSE ---
48yo male presents today for not feeling well and chest pain that has been going on now for the past 3 days. Patient is homeless, unkempt, poor hygiene. Cooperative with all nursing task. Patient given blankets and pillow.
[2024-02-16 06:28] LABS: Influenza A QL RT-PCR Negative (Negative); Influenza B QL RT-PCR Negative (Negative); RSV RNA, RT-PCR Negative (Negative); SARS-CoV-2 RNA PCR Negative (Negative)
[2024-02-16 07:29] LABS: Add Urine Microscopic? YES; Appearance Urine Clear (Clear); Bacteria Urine None Seen /hpf; Bilirubin Urine Negative (Negative); Blood Urine 1+ (Negative); Color Urine Yellow (Yellow); Glucose Urine UA Negative (Negative); Hyaline Casts Urine Present /lpf; Ketones Urine Trace mg/dL (Negative); Leukocyte Esterase Ur Negative LEU/UL (Negative); Need Manual Microscopic Reviewed; Nitrate Urine Negative (Negative); Protein Urine 4+ mg/dL (Negative); Specific Grav Ur 1.014 (1.001-1.035); Squamous Epithelial Cell Urine None Seen /hpf (Few); Urobilinogen Urine 0.2 mg/dL (<2.0); WBC Urine 0-5 /hpf (0-3)
[2024-02-16] MEDS: FAMOTIDINE 20 MG/2 ML VIAL IV PUSH (08:10)
[2024-02-16] MEDS: AMPICILLIN SULB 3 GM/NS 100 ML 3 GM/100 ML VIAL IVPB ×3 (08:20→21:44)
[2024-02-16] MEDS: AZITHROMYCIN 500 MG/NS 250 ML 500 MG/250 ML BAG 250 MG IVPB (08:45)
[2024-02-16 08:46] LABS: Reflex Lactic Acid Yes or No Add Lactic
[2024-02-16 10:13] LABS: Lactic Acid 1.2 mmol/L (0.7-2.0)
--- NOTE | 2024-02-16 13:44 | P.HP_ITS ---
H&P: HPI History of Present Illness Date/Time: 02/16/24 13:44 Chief Complaint: chest pain Narrative: This is a 48-year-old male who presents to the ed with not feeling well and chest pain for the past 2 days. He states that he has not eaten over the past 3 today. But has managed to drink every day. EMS was called at a local bus stop. Upon a EMS arrival and he was tachycardic in 130s to 160s appear dehydrated. He is homeless. He was brought to the ED for evaluation. Last drink 5 hours ago. On evaluation he was dry tachycardic with pulse of 128 blood pressure within normal limit. No hypoxia are fever. No signs of alcohol withdrawal. Received IV fluids. Laboratory workup revealed leukocytosis of 18,000. Electrolyte panel was unremarkable. Lactic acid was mildly above normal limits at 2.1. LF Ts within normal range. Troponin was negative. Negative COVID flu and RSV swab. Chest x-ray with negative for any finding CT angiogram of the chest was performed which revealed no PE but showed left upper lobe pneumonia. He was started on IV antibiotics. He is admitted to setting for further treatment. Review of Systems Review of Systems: - CONSTITUTIONAL: Denies weight loss, fe chrissy and chills. - HEENT: Denies changes in vision and he aring - RESPIRATORY: Denies SOB and reports co ugh. - CV: Denies palpitations and reports CP . - GI: Denies abdominal pain, reports carlos sea, vomiting and denies diarrhea. - : Denies dysuria and urinary frequen cy. - MSK: Denies myalgia and joint pain. - SKIN: Denies rash and pruritus. - NEUROLOGICAL: Denies headache and sync ope. - PSYCHIATRIC: Denies recent changes in mood. Denies anxiety and depression. [facility] Past Medical History Medical History Tobacco abuse Depression with anxiety Alcoholism Bipolar disorder Hypertension Hyperlipidemia Amputation of one or more toes Distal right foot. Distal left fingers. Anxiety Seizures Surgical History Surgical History History of appendectomy Family History Family History Father Alcohol abuse Tobacco abuse Social History Social History Social History: Smokes 5 cigarettes per day, more when he can afford it. Started smoking around age 25. Drinks about 72 oz of beer per day (3 x 24oz cans). Rarely drinks any other alcoholic beverages. He is estranged from his mother. No children. He is homeless. He denies any illicit drugs. Code status full code Smoking packs per day: 0.25 Smoking cigarettes per day: 5.0 Years smoked: 23 Smoking pack-years: 5.75 Smoking status: Current every day smoker Tobacco type: cigarettes Second hand tobacco smoke exposure: Yes Additional smoking assessment comments: patient states its a different amount all the time Alcohol intake: current Drinks per week: 42 Substance use: never Substance use type: does not use Do You Feel Safe in your Home?: No Lack of Transportation: YES Lack of Food: Often True Current Housing: I Do Not Have Housing Concerned About Future Housing: YES Difficulty Paying Gas/Electric Bills: Decline to Answer Difficulty Paying for Meds: Decline to Answer Currently Unemployed: Decline to Answer Education: Decline to Answer Difficulty w/ Childcare or Family Care: Decline to Answer Living arrangements: homeless Spiritual care concerns: No Meds Home Medications and Allergies Home Medications ?Medication ?Instructions ?Recorded ?Confirmed ?Type folic acid 1 mg tablet 1 mg PO DAILY #30 tabs 07/04/22 12/28/23 Rx thiamine HCl (vitamin B1) 100 mg 100 mg PO QAM #30 tabs 07/04/22 12/28/23 Rx tablet (Vitamin B-1) ibuprofen 600 mg tablet 600 mg PO TID #20 tabs 07/18/22 12/28/23 Rx famotidine 40 mg tablet (Pepcid) 40 mg PO DAILY 1 month #30 tabs 12/13/22 12/28/23 Rx levetiracetam 1,000 mg tablet 1,000 mg PO BID 1 month #60 tabs 12/13/22 12/28/23 Rx Allergies Allergy/AdvReac Type Severity Reaction Status Date / Time No Known Allergies Allergy Verified 12/28/23 00:35 Vital Signs Vital Signs - 24 hr 02/16/24 05:21 02/16/24 08:16 02/16/24 11:11 Temperature 98.2 F 98.0 F Pulse Rate 128 H 108 H 104 H Respiratory Rate 18 20 20 Blood Pressure 126/94 H 118/73 123/89 Pulse Oximetry 98 96 98 Oxygen Delivery Room Air 02/16/24 12:19 Temperature Pulse Rate 96 Respiratory Rate 18 Blood Pressure 106/69 Pulse Oximetry 97 Oxygen Delivery Exam Narrative: GENERAL: Disheveled but not any acute distress, awake answers questions. HEAD: Normocephalic, atraumatic. EYES: PERRLA and EOMI. ENT: Nares clear, no rhinorrhea or epistaxis. Mucous membranes moist. NECK: Supple. CHEST: Clear to auscultation. No respiratory distress. HEART: Mildly tachycardic, No murmur heard. Normal peripheral pulses. ABDOMEN: Soft, nondistended, nontender, No rigidity or guarding EXTREMITIES: Foot midfoot amputation to the right foot, previous surgical scars bilaterally, scattered scabbing dry skin bilaterally. SKIN: Warm, dry, no rash. NEURO: No focal deficits. Alert and oriented x3. PSYCH: Normal mood and affect. H&P: Results Labs Labs: Short CBC 02/16/24 Range/Units 05:40 WBC 18.1 H (4.5-10.0) K/mm3 Hgb 13.9 L (14.0-18.0) g/dL Hct 41.1 L (42.0-52.0) % Plt Count 269 (150-375) k/mm3 BMP 02/16/24 05:40 Sodium 131 L Potassium 3.9 Chloride 95 L Carbon Dioxide 29 BUN 6 L Creatinine 0.50 L Glucose 125 H Calcium 9.0 Cardiac Enzymes 02/16/24 Range/Units 05:40 Troponin I < 0.012 (0.000-0.034) ng/mL Liver Function 02/16/24 Range/Units 05:40 Total Bilirubin 0.5 (0.2-1.3) mg/dL AST 57 (17-59) U/L ALT 16 (6-50) U/L Alkaline Phosphatase 126 (38-126) U/L Albumin 4.6 (3.5-5.1) g/dL Urine 02/16/24 Range/Units 07:03 Urine Color Yellow (Yellow) Urine Appearance Clear (Clear) Urine pH 6.0 (5.0-9.0) Ur Specific [place] 1.014 (1.001-1.035) Urine Protein 4+ H (Negative) mg/dL Urine Glucose (UA) Negative (Negative) mg/dL Assessment and Plan Assessment and plan (1) Pneumonia: Code(s): J18.9 - Pneumonia, unspecified organism Status: Acute (2) History of homeless: Code(s): Z78.9 - Other specified health status Status: Acute (3) Seizure disorder: Code(s): G40.909 - Epilepsy, unspecified, not intractable, without status epilepticus Status: Acute (4) Alcohol abuse: Code(s): F10.10 - Alcohol abuse, uncomplicated Status: Acute (5) Chest pain, pleuritic: Code(s): R07.81 - Pleurodynia Status: Acute (6) Depression with anxiety: Code(s): F41.8 - Other specified anxiety disorders Status: Acute (7) Tobacco abuse: Code(s): Z72.0 - Tobacco use Status: Acute (8) Bipolar disorder: Code(s): F31.9 - Bipolar disorder, unspecified Status: Acute (9) Hypertension: Code(s): I10 - Essential (primary) hypertension Status: Acute (10) Hyperlipidemia: Code(s): E78.5 - Hyperlipidemia, unspecified Status: Acute Plan This is a 48-year-old male who presents to the ed with not feeling well and chest pain for the past 2 days. He states that he has not eaten over the past 3 today. But has managed to drink every day. EMS was called at a local bus stop. Upon a EMS arrival and he was tachycardic in 130s to 160s appear dehydrated. He is homeless. He was brought to the ED for evaluation. Last drink 5 hours ago. On evaluation he was dry tachycardic with pulse of 128 blood pressure within normal limit. No hypoxia are fever. No signs of alcohol withdrawal. Received IV fluids. Laboratory workup revealed leukocytosis of 18,000. Electrolyte panel was unremarkable. Lactic acid was mildly above normal limits at 2.1. LFTs within normal range. Troponin was negative. Negative COVID flu and RSV swab. Chest x-ray with negative for any finding CT angiogram of the chest was performed which revealed no PE but showed left upper lobe pneumonia. He was started on IV antibiotics. He is admitted to setting for further treatment. 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
--- NOTE | 2024-02-16 15:09 | ADMGEN ---
This patient, Luis Desouza, was admitted to IMU Room 203-01 at 1402. Patient/family oriented to hospital policies and general routines including ID bracelet, bed and alarms, visiting hours, pain management, procedures, bathroom and other care routines, personal items, smoking policy, room service/diet, and visiting hours. Information on how to activate the Rapid Response Team has been discussed. Patient/Family are encouraged to report perceived risks to care and to ask questions if they do not understand what they are told or what they should do.
[2024-02-16] MEDS: LACTATED RINGERS 1,000 ML 125 ML IV CONT (15:42)
[2024-02-16] MEDS: PANTOPRAZOLE SODIUM IV 40 MG VIAL IV PUSH (21:45)
[2024-02-17] VITALS (11 sets, daily range): BP systolic 124–149; BP diastolic 70–88; PULSE 70–110; RESP 16–20; TEMP 36.6–37; O2SAT 94–96
[2024-02-17] MEDS: LACTATED RINGERS 1,000 ML 125 ML IV CONT ×2 (01:58→12:00)
[2024-02-17] MEDS: AMPICILLIN SULB 3 GM/NS 100 ML 3 GM/100 ML VIAL IVPB ×4 (01:58→20:26)
[2024-02-17] MEDS: chlordiazePOXIDE (*CRX) 25 MG CAPSULE PO ×2 (08:53→20:28)
[2024-02-17 08:54] LABS: Basophils Absolute Auto 0.1 K/mm3 (0.0-0.1); Basophils Percent Auto 0.7 % (0.2-1.2); Eosinophils Absolute Auto 0.1 K/mm3 (0-0.3); Eosinophils Percent Auto 1.6 % (0-4.4); Hematocrit 40.7 % (42.0-52.0); Hemoglobin 13.4 g/dL (14.0-18.0); Immature Granulocyte Absolute 0.02 K/mm3 (0.00-0.031); Immature Granulocyte Percent A 0.2 % (0-0.5); Lymphocytes Percent Auto 22.2 % (18.3-44.2); Mean Corpuscular HGB Conc 32.9 g/dl (32-36); Mean Corpuscular Hemoglobin 28.6 pg (26-34); Mean Platelet Volume 10.5 fl (7.4-10.4); Monocytes Absolute Auto 1.1 K/mm3 (0.1-0.6); Monocytes Percent Auto 12.6 % (2.6-8.5); Neutrophils Absolute Auto 5.4 K/mm3 (1.3-6.7); Neutrophils Percent Auto 62.7 % (45.5-73.1); Platelet Count Result 250 k/mm3 (150-375); Red Blood Count 4.68 M/mm3 (4.6-6.20); Red Cell Distribution Width 16.5 % (11.5-14.5); White Blood Count 8.6 K/mm3 (4.5-10.0)
[2024-02-17] MEDS: methocarbamoL 500 MG TABLET PO ×3 (08:54→20:28)
[2024-02-17] MEDS: GABAPENTIN 300 MG CAPSULE PO ×3 (08:54→20:28)
[2024-02-17] MEDS: QUEtiapine FUMARATE 25 MG TABLET 50 MG PO (08:54)
[2024-02-17] MEDS: THIAMINE HCL 100 MG TABLET PO (08:54)
[2024-02-17] MEDS: FOLIC ACID 1 MG TABLET PO (08:54)
[2024-02-17] MEDS: FAMOTIDINE 20 MG TABLET 40 MG PO (08:54)
[2024-02-17] MEDS: amLODIPine BESYLATE 5 MG TABLET PO (08:54)
[2024-02-17] MEDS: levETIRAcetam 500 MG TABLET 1000 MG PO ×2 (08:54→20:28)
[2024-02-17] MEDS: AZITHROMYCIN 500 MG/NS 250 ML 500 MG/250 ML BAG 250 MG IVPB (08:55)
[2024-02-17 08:58] LABS: Alanine Aminotransferase 14 U/L (6-50); Albumin Level 3.9 g/dL (3.5-5.1); Alkaline Phosphatase 105 U/L (38-126); Anion Gap 5 mmol/L (4-12); Aspartate Amino Transferase 41 U/L (17-59); Bilirubin,Total 0.7 mg/dL (0.2-1.3); Blood Urea Nitrogen 9 mg/dL (9-20); Calcium 8.7 mg/dL (8.4-10.2); Carbon Dioxide 31 mmol/L (22-30); Chloride 101 mmol/L (98-107); Estimated CRCL calculation 127 ml/min; Estimated Glomerular Filt Rate > 60; Glucose 100 mg/dL (65-110); Magnesium 1.8 mg/dL (1.6-2.3); Potassium 3.5 mmol/L (3.4-5.0); Sodium 137 mmol/L (137-145)
[2024-02-17] MEDS: IBUPROFEN 600 MG TABLET PO ×3 (08:58→16:48)
--- NOTE | 2024-02-17 10:56 | PC.NURSE ---
This patient, Luis Desouza, was received from IMU on 02/17/24 at 1056. Patient/family oriented to unit policies and routines
--- NOTE | 2024-02-17 12:43 | PM.IMPN ---
Progress Note: A&P Assessment and Plan (1) Pneumonia: Code(s): J18.9 - Pneumonia, unspecified organism Status: Acute (2) History of homeless: Code(s): Z78.9 - Other specified health status Status: Acute (3) Seizure disorder: Code(s): G40.909 - Epilepsy, unspecified, not intractable, without status epilepticus Status: Acute (4) Alcohol abuse: Code(s): F10.10 - Alcohol abuse, uncomplicated Status: Acute (5) Chest pain, pleuritic: Code(s): R07.81 - Pleurodynia Status: Acute (6) Depression with anxiety: Code(s): F41.8 - Other specified anxiety disorders Status: Acute (7) Tobacco abuse: Code(s): Z72.0 - Tobacco use Status: Acute (8) Bipolar disorder: Code(s): F31.9 - Bipolar disorder, unspecified Status: Acute (9) Hypertension: Code(s): I10 - Essential (primary) hypertension Status: Acute (10) Hyperlipidemia: Code(s): E78.5 - Hyperlipidemia, unspecified Status: Acute Plan This is a 48-year-old male who presents to the ed with not feeling well and chest pain for the past 2 days. He states that he has not eaten over the past 3 today. But has managed to drink every day. EMS was called at a local bus stop. Upon a EMS arrival and he was tachycardic in 130s to 160s appear dehydrated. He is homeless. He was brought to the ED for evaluation. Last drink 5 hours ago. On evaluation he was dry tachycardic with pulse of 128 blood pressure within normal limit. No hypoxia are fever. No signs of alcohol withdrawal. Received IV fluids. Laboratory workup revealed leukocytosis of 18,000. Electrolyte panel was unremarkable. Lactic acid was mildly above normal limits at 2.1. LFTs within normal range. Troponin was negative. Negative COVID flu and RSV swab. Chest x-ray with negative for any finding CT angiogram of the chest was performed which revealed no PE but showed left upper lobe pneumonia. He was started on IV antibiotics. He is admitted to setting for further treatment. Started on Unasyn and azithromycin for suspected aspiration pneumonia. Leukocytosis improved. Will stop IV fluid today. Alcohol abuse watch for withdrawal [facility] protocol. 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 No overnight events. No nausea vomiting. Heart rate has improved. Review of Systems Review of Systems: All systems reviewed & are unremarkable except as noted in HPI and below Exam Narrative: GENERAL: Disheveled but not any acute distress, awake answers questions. HEAD: Normocephalic, atraumatic. EYES: PERRLA and EOMI. ENT: Nares clear, no rhinorrhea or epistaxis. Mucous membranes moist. NECK: Supple. CHEST: Clear to auscultation. No respiratory distress. HEART: Regular rate and rhythm, No murmur heard. Normal peripheral pulses. ABDOMEN: Soft, nondistended, nontender, No rigidity or guarding EXTREMITIES: Foot midfoot amputation to the right foot, previous surgical scars bilaterally, scattered scabbing dry skin bilaterally. SKIN: Warm, dry, no rash. NEURO: No focal deficits. Alert and oriented x3. PSYCH: Normal mood and affect. Objective Data Vital Signs Vital Signs: Vital Signs - 24 hr 02/16/24 13:31 02/16/24 14:09 02/16/24 14:57 Temperature 99.3 F Pulse Rate 102 H 112 H Respiratory Rate 16 Blood Pressure 112/79 120/83 Pulse Oximetry 96 Oxygen Delivery 02/16/24 15:35 02/16/24 16:00 02/16/24 18:00 Temperature 99.5 F Pulse Rate 104 H 101 H 107 H Respiratory Rate 20 Blood Pressure 119/72 Pulse Oximetry 95 Oxygen Delivery 02/16/24 19:55 02/16/24 20:00 02/16/24 20:00 Temperature 99.9 F H Pulse Rate 93 78 78 Respiratory Rate 20 20 Blood Pressure 134/88 Pulse Oximetry 98 98 Oxygen Delivery Room Air 02/16/24 22:00 02/16/24 23:33 02/16/24 23:50 Temperature 98.8 F Pulse Rate 109 H 105 H 102 H Respiratory Rate 20 20 Blood Pressure 108/80 Pulse Oximetry 96 96 Oxygen Delivery Room Air 02/16/24 23:50 02/17/24 02:00 02/17/24 03:58 Temperature 98.5 F Pulse Rate 102 H 101 H 93 Respiratory Rate 20 Blood Pressure 124/70 Pulse Oximetry 95 Oxygen Delivery 02/17/24 04:00 02/17/24 04:00 02/17/24 05:36 Temperature Pulse Rate 80 80 70 Respiratory Rate 20 Blood Pressure Pulse Oximetry 95 Oxygen Delivery Room Air 02/17/24 07:53 02/17/24 08:00 02/17/24 08:58 Temperature 98.6 F Pulse Rate 100 110 H Respiratory Rate 16 Blood Pressure 149/88 H Pulse Oximetry 96 96 Oxygen Delivery Room Air 02/17/24 10:00 Temperature Pulse Rate 78 Respiratory Rate Blood Pressure Pulse Oximetry Oxygen Delivery Intake/Output Intake/Output: Intake & Output 02/14/24 02/15/24 02/16/24 02/17/24 23:59 23:59 23:59 23:59 Intake Total 1895.2 3010 Output Total 400 1300 Balance 1495.2 1710 Meds/Results Medications: Active Medications Generic Name Dose Route Start Last Admin Trade Name Freq PRN Reason Stop Dose Admin Acetaminophen 650 mg 02/16/24 07:22 Acetaminophen 325 Mg Tablet PO Q4H PRN Mild Pain (1-3) or Fever Amlodipine Besylate 5 mg 02/17/24 09:00 02/17/24 08:54 Amlodipine Besylate 5 Mg Tablet PO 5 mg DAILY PARVEZ Administration Chlordiazepoxide HCl 25 mg 02/17/24 08:00 02/17/24 08:53 Chlordiazepoxide (*Crx) 25 Mg Capsule PO 25 mg Q6HR PARVEZ Administration Famotidine 40 mg 02/17/24 09:00 02/17/24 08:54 Famotidine 20 Mg Tablet PO 40 mg DAILY PARVEZ Administration Folic Acid 1 mg 02/17/24 09:00 02/17/24 08:54 Folic Acid 1 Mg Tablet PO 1 mg DAILY PARVEZ Administration Gabapentin 300 mg 02/17/24 08:05 02/17/24 08:54 Gabapentin 300 Mg Capsule PO 300 mg Q8HR PARVEZ Administration Lactated Ringer's 1,000 mls @ 125 mls/hr 02/16/24 07:25 02/17/24 12:00 Lr - Lactated Ringers Iv IV CONT 125 mls/hr .Q8H PARVEZ Administration Ampicillin Sodium/Sulbactam Sodium 3 gm in 100 mls @ 200 mls/hr 02/16/24 14:00 02/17/24 08:57 Unasyn 3 Gm/Ns 100 Ml IVPB 200 mls/hr Q6H PARVEZ Administration Azithromycin 500 mg in 250 mls @ 250 mls/hr 02/17/24 09:00 02/17/24 08:55 Zithromax IVPB 250 mls/hr Q24H PARVEZ Administration Ibuprofen 600 mg 02/17/24 09:00 02/17/24 08:58 Ibuprofen 600 Mg Tablet PO 600 mg TID PARVEZ Administration Ketorolac Tromethamine 30 mg 02/16/24 07:22 Ketorolac 30 Mg/Ml Vial (*Bkc) IV PUSH 02/21/24 07:21 Q6H PRN Pain Rated 4-6 Levetiracetam 1,000 mg 02/17/24 09:00 02/17/24 08:54 Levetiracetam 500 Mg Tablet PO 1,000 mg Q12HR PARVEZ Administration Lorazepam 2 mg 02/17/24 08:03 Lorazepam Inj (*Crx) 2 Mg/Ml Vial IV PUSH Q4H PRN CIWA 8-15 Methocarbamol 500 mg 02/17/24 08:05 02/17/24 08:54 Methocarbamol 500 Mg Tablet PO 500 mg Q8HR PARVEZ Administration Ondansetron HCl 4 mg 02/17/24 08:03 Ondansetron Inj 4 Mg/2 Ml Vial IV PUSH Q6H PRN Nausea And Vomiting Quetiapine Fumarate 50 mg 02/17/24 09:00 02/17/24 08:54 Quetiapine Fumarate 25 Mg Tablet PO 50 mg DAILY PARVEZ Administration Thiamine HCl 100 mg 02/17/24 09:00 02/17/24 08:54 Thiamine Hcl 100 Mg Tablet PO 100 mg QAM PARVEZ Administration Radiology Results: ITS Impressions Chest X-Ray 02/16/24 06:23 Impression: Clear lungs. COPD. Chest CTA 02/16/24 07:09 Impression: No evidence of pulmonary embolus, aortic dissection, or aortic aneurysm. Focal groundglass opacities in the left upper lobe, most compatible with focal pneumonia. Extensive esophageal wall thickening is compatible with esophagitis. Correlate clinically. Multiple mild, chronic compression deformities in the spine, as above. Labs Labs: Laboratory Results - last 24 hr 02/17/24 08:13 WBC 8.6 RBC 4.68 Hgb 13.4 L Hct 40.7 L MCV 87.0 MCH 28.6 MCHC 32.9 RDW 16.5 H Plt Count 250 MPV 10.5 H Immature Gran % (Auto) 0.2 Neut % (Auto) 62.7 Lymph % (Auto) 22.2 [place] % (Auto) 12.6 H Eos % (Auto) 1.6 Baso % (Auto) 0.7 Lymph # (Auto) 1.90 [place] # (Auto) 1.1 H Eos # (Auto) 0.1 Baso # (Auto) 0.1 Abs Immat Gran (auto) 0.02 Absolute Neuts (auto) 5.4 Absolute Nucleated RBC 0.000 Nucleated RBC % 0.0 Sodium 137 Potassium 3.5 Chloride 101 Carbon Dioxide 31 H Anion Gap 5 BUN 9 Creatinine 0.60 L Estim Creat Clear Calc 127 Estimated GFR > 60 Glucose 100 Calcium 8.7 Magnesium 1.8 Total Bilirubin 0.7 AST 41 ALT 14 Alkaline Phosphatase 105 Total Protein 7.0 Albumin 3.9
[2024-02-17 14:01] LABS: Glucose Point of Care 157 mg/dl (65-105)
[2024-02-17] MEDS: ENOXAPARIN 40 MG/0.4 ML SYRINGE SUB-Q (15:40)
[2024-02-17 17:41] LABS: Glucose Point of Care 108 mg/dl (65-105)
[2024-02-18] MEDS: AMPICILLIN SULB 3 GM/NS 100 ML 3 GM/100 ML VIAL IVPB ×3 (01:40→14:11)
[2024-02-18 02:49] LABS: Glucose Point of Care 148 mg/dl (65-105)
[2024-02-18] MEDS: chlordiazePOXIDE (*CRX) 25 MG CAPSULE PO ×3 (05:22→20:23)
[2024-02-18] MEDS: methocarbamoL 500 MG TABLET PO ×3 (05:22→20:23)
[2024-02-18] MEDS: GABAPENTIN 300 MG CAPSULE PO ×3 (05:22→20:23)
[2024-02-18 08:00] VITALS: BP 129/89; PULSE 88; RESP 14; TEMP 36.3; O2SAT 96
[2024-02-18] MEDS: ENOXAPARIN 40 MG/0.4 ML SYRINGE SUB-Q (09:24)
[2024-02-18] MEDS: FAMOTIDINE 20 MG TABLET 40 MG PO (09:24)
[2024-02-18] MEDS: amLODIPine BESYLATE 5 MG TABLET PO (09:24)
[2024-02-18] MEDS: FOLIC ACID 1 MG TABLET PO (09:24)
[2024-02-18] MEDS: levETIRAcetam 500 MG TABLET 1000 MG PO ×2 (09:24→20:23)
[2024-02-18] MEDS: THIAMINE HCL 100 MG TABLET PO (09:24)
[2024-02-18] MEDS: QUEtiapine FUMARATE 25 MG TABLET 50 MG PO (09:25)
[2024-02-18] MEDS: IBUPROFEN 600 MG TABLET PO ×2 (09:25→12:51)
[2024-02-18] MEDS: AZITHROMYCIN 500 MG/NS 250 ML 500 MG/250 ML BAG 250 MG IVPB (10:18)
[2024-02-18 12:00] VITALS: BP 115/87; PULSE 72; RESP 14; TEMP 36.2; O2SAT 95
[2024-02-18 12:04] LABS: Glucose Point of Care 79 mg/dl (65-105)
--- NOTE | 2024-02-18 14:05 | P.PNIM_ITS ---
Progress Note: A&P Assessment and Plan (1) Pneumonia: Code(s): J18.9 - Pneumonia, unspecified organism Status: Acute (2) History of homeless: Code(s): Z78.9 - Other specified health status Status: Acute (3) Seizure disorder: Code(s): G40.909 - Epilepsy, unspecified, not intractable, without status epilepticus Status: Acute (4) Alcohol abuse: Code(s): F10.10 - Alcohol abuse, uncomplicated Status: Acute (5) Chest pain, pleuritic: Code(s): R07.81 - Pleurodynia Status: Acute (6) Depression with anxiety: Code(s): F41.8 - Other specified anxiety disorders Status: Acute (7) Tobacco abuse: Code(s): Z72.0 - Tobacco use Status: Acute (8) Bipolar disorder: Code(s): F31.9 - Bipolar disorder, unspecified Status: Acute (9) Hypertension: Code(s): I10 - Essential (primary) hypertension Status: Acute (10) Hyperlipidemia: Code(s): E78.5 - Hyperlipidemia, unspecified Status: Acute Plan Patient was brought in with complaints of chest pain for the past 2 days. He states that he has not eaten over the past 3 today. But has managed to drink every day. Upon a EMS arrival and he was tachycardic in 130s to 160s in appeared dehydrated. He is homeless. He was brought to the ED for evaluation. Last drink 5 hours prior to admission. On evaluation, he was dehydrated appearing. He was tachycardic with pulse of 128. No hypoxia. He was afebrile. White count was 18 K. sodium was 131. Lactic acid was 2.1 but normal on repeat. Troponin was negative x1. Urinalysis showed 4+ protein, 1+ blood and 3-5 red cells. LFTs normal. Influenza, RSV and COVID PCR were negative. Chest x-ray was clear but showed evidence of COPD. CTA of the chest was negative for PE, ao rtic dissection or aortic aneurysm. He had a focal ground-glass opacities in left upper lobe compatible with focal pneumonia as well as extensive esophageal wall thickening compatible with esophagitis. He had multiple mild chronic compression deformities the spine as noted. He was resumed on his home medications including Motrin. He was started on Unasyn and azithromycin for suspected aspiration pneumonia. WBC normalized. Sodium normalized. IV fluids stopped. He is eating well. He was started on scheduled librium and CIWA protocol. He was educated about the benefits of abstaining from alcohol and tobacco use. Wound care evaluated the patient since he is status post right transmetatarsal foot amputation due to frostbite. We continued dressing changes and wound care instructions. Assuming care. Given the CT findings, will stop Motrin and change to pepcid to protonix. Start PT/OT. Care coordination has provided him information about shelters and other services in the area. Change to oral abx. Okay for discharge if he is stable to ambulate. Doubt aspiration since PNA is NEHA. DVT prophylaxis Lovenox Code status full code Subjective Date/time seen: 02/18/24 14:05 Interval history: 48yo male with alcoholism, seizures, Bipolar d/o and HTN here for chest pain. Assuming care. Chart reviewed. Patient feeling better. Denies tremors. He denies withdrawal symptoms. His chest pain is much better. Usually comes on with cough. Cough has been nonproductive. Eating well. He feels ready for discharge however he has not been out of bed much and nursing feels patient is unsteady. Exam Narrative: AF 97.2 115/87 72 14 95% ra Gen - NARD HEENT - extremely poor dentition. Chest -few basilar crackles otherwise clear CV - RRR S1/S2 Abd - Soft, NT/ND, Positive BS Ext - No pedal edema. Right foot dressing is clean, dry and intact Psych - Nml mood and affect Skin - Warm and dry Objective Data Vital Signs Vital Signs: Vital Signs - 24 hr 02/17/24 16:00 02/17/24 20:00 02/18/24 08:00 Temperature 98.1 F 97.9 F 97.3 F L Pulse Rate 79 76 88 Respiratory Rate 20 16 14 Blood Pressure 125/79 128/79 129/89 Pulse Oximetry 96 94 96 Oxygen Delivery 02/18/24 08:00 02/18/24 12:00 Temperature 97.2 F L Pulse Rate 72 Respiratory Rate 14 Blood Pressure 115/87 Pulse Oximetry 96 95 Oxygen Delivery Room Air Intake/Output Intake/Output: Intake & Output 02/15/24 02/16/24 02/17/24 02/18/24 23:59 23:59 23:59 23:59 Intake Total 1895.2 5720 940 Output Total 400 3500 1300 Balance 1495.2 2220 -360 Meds/Results Medications: Active Medications Generic Name Dose Route Start Last Admin Trade Name Freq PRN Reason Stop Dose Admin Acetaminophen 650 mg 02/16/24 07:22 Acetaminophen 325 Mg Tablet PO Q4H PRN Mild Pain (1-3) or Fever Amlodipine Besylate 5 mg 02/17/24 09:00 02/18/24 09:24 Amlodipine Besylate 5 Mg Tablet PO 5 mg DAILY PARVEZ Administration Chlordiazepoxide HCl 25 mg 02/17/24 22:00 02/18/24 05:22 Chlordiazepoxide (*Crx) 25 Mg Capsule PO 25 mg Q8H PARVEZ Administration Enoxaparin Sodium 40 mg 02/17/24 09:00 02/18/24 09:24 Enoxaparin 40 Mg/0.4 Ml Syringe SUB-Q 40 mg DAILY PARVEZ Administration Famotidine 40 mg 02/17/24 09:00 02/18/24 09:24 Famotidine 20 Mg Tablet PO 40 mg DAILY PARVEZ Administration Folic Acid 1 mg 02/17/24 09:00 02/18/24 09:24 Folic Acid 1 Mg Tablet PO 1 mg DAILY PARVEZ Administration Gabapentin 300 mg 02/17/24 08:05 02/18/24 05:22 Gabapentin 300 Mg Capsule PO 300 mg Q8HR PARVEZ Administration Ampicillin Sodium/Sulbactam Sodium 3 gm in 100 mls @ 200 mls/hr 02/16/24 14:00 02/18/24 09:23 Unasyn 3 Gm/Ns 100 Ml IVPB 200 mls/hr Q6H PARVEZ Administration Azithromycin 500 mg in 250 mls @ 250 mls/hr 02/17/24 09:00 02/18/24 10:18 Zithromax IVPB 250 mls/hr Q24H PARVEZ Administration Ibuprofen 600 mg 02/17/24 09:00 02/18/24 12:51 Ibuprofen 600 Mg Tablet PO 600 mg TID PARVEZ Administration Ketorolac Tromethamine 30 mg 02/16/24 07:22 Ketorolac 30 Mg/Ml Vial (*Bkc) IV PUSH 02/21/24 07:21 Q6H PRN Pain Rated 4-6 Levetiracetam 1,000 mg 02/17/24 09:00 02/18/24 09:24 Levetiracetam 500 Mg Tablet PO 1,000 mg Q12HR PARVEZ Administration Lorazepam 2 mg 02/17/24 08:03 Lorazepam Inj (*Crx) 2 Mg/Ml Vial IV PUSH Q4H PRN CIWA 8-15 Methocarbamol 500 mg 02/17/24 08:05 02/18/24 05:22 Methocarbamol 500 Mg Tablet PO 500 mg Q8HR PARVEZ Administration Ondansetron HCl 4 mg 02/17/24 08:03 Ondansetron Inj 4 Mg/2 Ml Vial IV PUSH Q6H PRN Nausea And Vomiting Quetiapine Fumarate 50 mg 02/17/24 09:00 02/18/24 09:25 Quetiapine Fumarate 25 Mg Tablet PO 50 mg DAILY PARVEZ Administration Thiamine HCl 100 mg 02/17/24 09:00 02/18/24 09:24 Thiamine Hcl 100 Mg Tablet PO 100 mg QAM PARVEZ Administration Radiology Results: ITS Impressions Chest X-Ray 02/16/24 06:23 Impression: Clear lungs. COPD. Chest CTA 02/16/24 07:09 Impression: No evidence of pulmonary embolus, aortic dissection, or aortic aneurysm. Focal groundglass opacities in the left upper lobe, most compatible with focal pneumonia. Extensive esophageal wall thickening is compatible with esophagitis. Correlate clinically. Multiple mild, chronic compression deformities in the spine, as above. Labs Labs: Laboratory Results - last 24 hr 02/17/24 02/17/24 02/18/24 17:39 21:52 11:34 POC Capillary Glucose 108 H 148 H 79
[2024-02-18 16:00] VITALS: BP 119/80; PULSE 71; RESP 16; TEMP 36.7; O2SAT 97
[2024-02-18 18:34] LABS: Glucose Point of Care 107 mg/dl (65-105)
[2024-02-18] MEDS: PANTOPRAZOLE SODIUM IV 40 MG VIAL IV PUSH (20:22)
[2024-02-18] MEDS: AMOXICILLIN/CLAVULANATE K 875-125 MG TAB 1 TABLET PO (20:23)
[2024-02-18 21:00] LABS: Glucose Point of Care 170 mg/dl (65-105)
[2024-02-18 22:25] VITALS: BP 120/82; PULSE 73; RESP 20; TEMP 36.3; O2SAT 98
[2024-02-19 06:00] VITALS: BP 122/87; PULSE 87; RESP 20; TEMP 36.3; O2SAT 98
[2024-02-19] MEDS: chlordiazePOXIDE (*CRX) 25 MG CAPSULE PO ×2 (06:03→09:05)
[2024-02-19] MEDS: GABAPENTIN 300 MG CAPSULE PO ×2 (06:03→13:43)
[2024-02-19] MEDS: methocarbamoL 500 MG TABLET PO ×2 (06:03→13:43)
[2024-02-19 08:00] VITALS: BP 122/87
[2024-02-19] MEDS: levETIRAcetam 500 MG TABLET 1000 MG PO (09:04)
[2024-02-19] MEDS: DOXYCYCLINE HYCLATE 100 MG TABLET PO (09:04)
[2024-02-19] MEDS: QUEtiapine FUMARATE 25 MG TABLET 50 MG PO (09:04)
[2024-02-19] MEDS: AMOXICILLIN/CLAVULANATE K 875-125 MG TAB 1 TABLET PO (09:04)
[2024-02-19] MEDS: amLODIPine BESYLATE 5 MG TABLET PO (09:05)
[2024-02-19] MEDS: THIAMINE HCL 100 MG TABLET PO (09:05)
[2024-02-19] MEDS: PANTOPRAZOLE SODIUM IV 40 MG VIAL IV PUSH (09:06)
[2024-02-19] MEDS: ENOXAPARIN 40 MG/0.4 ML SYRINGE SUB-Q (09:18)
[2024-02-19 11:58] LABS: Glucose Point of Care 108 mg/dl (65-105)
[2024-02-19 12:00] VITALS: BP 122/87
[2024-02-19 14:00] VITALS: BP 126/85; PULSE 89; RESP 16; TEMP 36.4; O2SAT 96
[2024-02-19 16:00] VITALS: BP 126/85
--- NOTE | 2024-02-19 16:07 | PM.DS ---
DS: Admitting Diagnosis Discharge Date 02/19/24 Admitting Diagnosis Chest pain DS: Discharge Diagnosis Discharge Diagnosis (1) Pneumonia: Code(s): J18.9 - Pneumonia, unspecified organism Status: Acute (2) History of homeless: Code(s): Z78.9 - Other specified health status Status: Acute (3) Seizure disorder: Code(s): G40.909 - Epilepsy, unspecified, not intractable, without status epilepticus Status: Acute (4) Alcohol abuse: Code(s): F10.10 - Alcohol abuse, uncomplicated Status: Acute (5) Chest pain, pleuritic: Code(s): R07.81 - Pleurodynia Status: Acute (6) Depression with anxiety: Code(s): F41.8 - Other specified anxiety disorders Status: Acute (7) Tobacco abuse: Code(s): Z72.0 - Tobacco use Status: Acute (8) Bipolar disorder: Code(s): F31.9 - Bipolar disorder, unspecified Status: Acute (9) Hypertension: Code(s): I10 - Essential (primary) hypertension Status: Acute (10) Hyperlipidemia: Code(s): E78.5 - Hyperlipidemia, unspecified Status: Acute DS: Summary Hospital Course Reason for hospitalization: 48yo male with alcoholism, seizures, Bipolar d/o and HTN here for chest pain. Please see H&P for details. Hospital Course: Patient was brought in with complaints of chest pain for the past 2 days. He states that he has not eaten over the past 3 today but has managed to drink every day. Upon a EMS arrival and he was tachycardic in 130s to 160s and appeared dehydrated. He is homeless. He was brought to the ED for evaluation. Last drink 5 hours prior to admission. On evaluation, he was dehydrated appearing. He was tachycardic with pulse of 128. No hypoxia. He was afebrile. White count was 18 K. sodium was 131. Lactic acid was 2.1 but normal on repeat. Troponin was negative x1. Urinalysis showed 4+ protein, 1+ blood and 3-5 red cells. LFTs normal. Influenza, RSV and COVID PCR were negative. Chest x-ray was clear but showed evidence of COPD. CTA of the chest was negative for PE, aortic dissection or aortic aneurysm. He had a focal ground-glass opacities in left upper lobe compatible with focal pneumonia as well as extensive esophageal wall thickening compatible with esophagitis. He had multiple mild chronic compression deformities the spine as noted. He was resumed on his home medications. He was started on Unasyn and azithromycin for suspected aspiration pneumonia. WBC normalized. Sodium normalized. IV fluids stopped. He is eating well. He was started on scheduled librium and CIWA protocol. He was educated about the benefits of abstaining from alcohol and tobacco use. Wound care evaluated the patient since he is status post right transmetatarsal foot amputation due to frostbite. We continued dressing changes and wound care instructions. Able to wean Librium and CIWA score remaiined low. We stopped his scheduled Motrin and changed to pepcid to protonix. He worked with PT/OT and was walking in the room. Care coordination has provided him information about shelters and other services in the area. He was changed to oral abx. He overall did well and was able to be discharged on 02/19/24. He is planning on staying with family. Status at Discharge Cognitive/behavioral status at discharge: stable Time Spent with Patient Time attestation: Total time spent providing and/or coordinating discharge services: 35 minutes Time spent: Greater than 30 minutes Exam Narrative: AF 97.5 126/85 89 16 96% ra Gen - NARD HEENT - extremely poor dentition. Chest - CTA bilaterally, nml RR CV - RRR S1/S2 Abd - Soft, NT/ND, Positive BS Ext - No pedal edema. Right foot dressing is clean, dry and intact. multiple partial left finger amputations noted. Psych - Nml mood and affect Skin - Warm and dry DS: Data Data Completed and Pending Labs on day of discharge: Labs from last 24 hours 02/19/24 02/18/24 02/18/24 11:52 20:18 18:32 POC Capillary Glucose 108 H 170 H 107 H Discharge Plan Discharge Attending physician on discharge: Imtiaz Stout Consulting providers: Jose Whitten Discharging Clinician: Imtiaz Stout Anticipated Discharge Date/Time: 02/19/24 16:15 Patient Disposition: Home, Self-Care Activity: as tolerated Diet: heart healthy Discharge Instructions: Dressing change instructions: Clean right foot with soap and water daily, apply ABD pad and wrap with gauze to protect. Please abstain from using any products that contain alcohol Please abstain from using any products that contain tobacco or nicotine. Please complete your antibiotic course even if you are starting to feel well. Take precautions to avoid falls. Rise slowly from a lying or sitting position. Pause before standing or walking. Contact your doctor or call 911 and come to the Emergency Room if you have fevers or other worrisome symptoms. Avoid NSAIDs (ibuprofen, naproxen, Aleve). Tylenol is safe to take. Follow-up with your primary care provider in 1-2 weeks. Please call for appointment. Thank you for using [facility] for your health care needs. Patient Instructions: Antibiotic Form Patient Language: Irish Stand Alone Forms: General Discharge Information Follow-up/Referrals: PHYSICIAN,CLINICAL TRIAL EDUCATOR [Primary Care Provider] - Discharge Medications: New doxycycline hyclate 100 mg Tablet 100 mg PO Q12HR Qty: 3 0RF amoxicillin-pot clavulanate 875-125 mg tablet 1 tablet PO Q12H Qty: 7 0RF Continued levetiracetam 1,000 mg tablet 1,000 mg PO BID 30 Days Qty: 60 0RF famotidine [Pepcid] 40 mg tablet 40 mg PO DAILY 30 Days Qty: 30 0RF folic acid 1 mg Tablet 1 mg PO DAILY Qty: 30 6RF thiamine HCl (vitamin B1) [Vitamin B-1] 100 mg Tablet 100 mg PO QAM Qty: 30 6RF amlodipine 5 mg tablet 5 mg PO DAILY gabapentin 300 mg capsule 300 mg PO Q8H acetaminophen 500 mg tablet 1,000 mg PO Q12H PRN (Reason: Pain, Fever) Changed quetiapine 50 mg tablet 50 mg PO HS Qty: 10 0RF methocarbamol 500 mg tablet 500 mg PO Q8H PRN (Reason: Muscle Spasm) Qty: 5 0RF Discontinued ibuprofen 600 mg tablet 600 mg PO TID Qty: 20 0RF Date of admission: 02/16/24 07:22 Primary Care Provider: PHYSICIAN,CLINICAL TRIAL EDUCATOR Admitting Provider: Ej Loco Attending physician on admission: Ej Loco Condition: Stable Hospitalist MIPS Heart Failure (Exclusion) Patient has history of Heart Transplant or Left Ventricular Assistive Device?: No IF YES, STOP HERE Heart Failure (Qualifier) Patient has current or prior documentation of LVEF less than or equal to 40%, or mod/servere depressed LVSF?: No IF NO, STOP HERE
--- NOTE | 2024-02-19 17:16 | PC.NURSE ---
Prescriptions unable to transmit electronically. Augmentin & Doxycycline called to pharmacy:[facility] [place]. Spoke with pharmacist.
--- OUTSIDE RECORDS SUMMARY | 2024-02-21 12:01 | XMS_ITS | CONTINUITY OF CARE DOCUMENT ---
Author Name casey peña Address Unknown Organization [facility] Address [address] [place] [address] Phone [phone] Care Team Providers Care Burlap Spreader Name Role Phone Sanket Telles MD Unavailable Sanket Telles MD Unavailable INSURANCE PROVIDERS Payer name Policy type / Coverage type [place] red libertarian [place] [employer] Medicaid [id number]
--- OUTSIDE RECORDS SUMMARY | 2024-02-21 13:32 | XMS_ITS | CONTINUITY OF CARE DOCUMENT ---
Author Name casey peña Address Unknown Organization [facility] Address [address] [place] [address] Phone [phone] Care Team Providers Care Retail Sales Representative Name Role Phone Sanket Telles MD Unavailable Sanket Telles MD Unavailable INSURANCE PROVIDERS Payer name Policy type / Coverage type [place] red republican [place] [employer] Medicaid [id number]
== END 2024-02-19 17:50 | disposition home or self-care (01) | DRG 139 ==
LOC: ANHED 06:39 → ANHIMU 08:11 → ANH3MEDSUR 02-17 10:53
PROVIDERS: Admitting Provider Internal Medicine; Emergency Provider Student in an Organized Health Care Education/Training Program; Visit Provider Internal Medicine
DX: J18.9 Pneumonia, unspecified organism (principal); I10 Essential (primary) hypertension; K20.90 Esophagitis, unspecified without bleeding; E78.5 Hyperlipidemia, unspecified; G40.909 Epilepsy, unspecified, not intractable, without status epilepticus; F31.9 Bipolar disorder, unspecified; F10.10 Alcohol abuse, uncomplicated; F41.9 Anxiety disorder, unspecified; F17.210 Nicotine dependence, cigarettes, uncomplicated; Z20.822 Contact with and (suspected) exposure to COVID-19; Z89.421 Acquired absence of other right toe(s); Z59.00 Homelessness unspecified; Z89.022 Acquired absence of left finger(s)
CPT/HCPCS: 36415; 71045; 71275; 80053; 81001; 82948; 83605; 83735; 84484; 85025; 87637; 93005; 96365; 96366; 96367; 96375; 97161; 97165; 99285; A9270; J0295; J0456; J1650; J1953; J2470; J3411; J7120; Q9967

== ENCOUNTER 2024-03-08 18:04 | Emergency (ER) | payer OTHER, SELFPAY ==
[2024-03-08 18:44] VITALS: BP 112/85; PULSE 114; RESP 16; TEMP 36.6; O2SAT 97
[2024-03-08] MEDS: chlordiazePOXIDE (*CRX) 25 MG CAPSULE 50 MG PO ×2 (22:38→23:41)
--- NOTE | 2024-03-08 23:24 | ED_ITS ---
HPI - General Adult General Chief complaint: Unspecified Stated complaint: COLD FEET, HOMELESS Time Seen by Provider: 03/08/24 21:32 History of Present Illness HPI narrative: Patient 48-year-old gentleman who presents emergency department with chief complaint of ?frostbite all over. The patient states that his left hand is bothering him in his right foot is bothering him the patient states that he has had prior frostbite and has lost digits from both extremities the patient states that other slightly reddened report no blisters no necrotic tissue. The patient reports that his dressing got wet on his right foot and that his orthotic boot is bothering him. Related Data Home Medications ?Medication ?Instructions ?Recorded ?Confirmed ?Last Taken ?Type acetaminophen 500 mg tablet 1,000 mg PO Q12H PRN Pain, Fever 02/16/24 02/16/24 Unknown History amlodipine 5 mg tablet 5 mg PO DAILY 02/16/24 02/16/24 Unknown History gabapentin 300 mg capsule 300 mg PO Q8H 02/16/24 02/16/24 Unknown History Allergies Allergy/AdvReac Type Severity Reaction Status Date / Time No Known Allergies Allergy Verified 03/08/24 18:05 Review of Systems Review of Systems: A 10 system review of systems was completed on the patient and is negative except for what is stated in the HPI. Nursing and ancillary documentation was reviewed. 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 Distal left fingers. Anxiety Seizures Surgical History Surgical History History of appendectomy Family History Family History Father Alcohol abuse Tobacco abuse Social History Social History Social History: Smokes 5 cigarettes per day, more when he can afford it. Started smoking around age 25. Drinks about 72 oz of beer per day (3 x 24oz cans). Rarely drinks any other alcoholic beverages. He is estranged from his mother. No children. He is homeless. He denies any illicit drugs. Code status full code Smoking packs per day: 0.25 Smoking cigarettes per day: 5.0 Years smoked: 23 Smoking pack-years: 5.75 Smoking status: Current every day smoker Tobacco type: cigarettes Second hand tobacco smoke exposure: Yes Additional smoking assessment comments: patient states its a different amount all the time Alcohol intake: current Drinks per week: 35 Substance use: never Substance use type: does not use Do You Feel Safe in your Home?: Yes Lack of Transportation: No Lack of Food: Often True Current Housing: I Do Not Have Housing Concerned About Future Housing: YES Difficulty Paying Gas/Electric Bills: YES Difficulty Paying for Meds: YES Currently Unemployed: No Education: Don't Know Difficulty w/ Childcare or Family Care: No Living arrangements: homeless Spiritual care concerns: No Exam Narrative: GENERAL: Well-appearing, well-nourished, and in no acute distress. HEAD: Normocephalic, atraumatic. EYES: PERRLA and EOMI. ENT: Nares clear, no rhinorrhea or epistaxis. Mucous membranes moist. NECK: Supple. CHEST: Clear to auscultation. No respiratory distress. HEART: Regular rate and rhythm. No murmur heard. Normal peripheral pulses. ABDOMEN: Soft, nontender, nondistended, normal active bowel sounds. EXTREMITIES: Normal range of motion there is a dressing to the right lower extremity that was unwrapped and there was no tissue breakdown there was no signs of cellulitis. The area was redressed left hand showed slight erythema at the digits no evidence of necrotic tissue no evidence of blisters no pallor. No edema. SKIN: Warm, dry, no rash. NEURO: No focal deficits. Alert and oriented x3. PSYCH: Normal mood and affect. Course Vital Signs Vital signs: Vital Signs Temperature 36.6 C 03/08/24 18:44 Pulse Rate 114 H 03/08/24 18:44 Respiratory Rate 16 03/08/24 18:44 Blood Pressure 112/85 03/08/24 18:44 Pulse Oximetry 97 03/08/24 18:44 Oxygen Delivery Room Air 03/08/24 18:44 Temperature 36.6 C 03/08/24 18:44 Pulse Rate 114 H 03/08/24 18:44 Respiratory Rate 16 03/08/24 18:44 Blood Pressure 112/85 03/08/24 18:44 Pulse Oximetry 97 03/08/24 18:44 Oxygen Delivery Room Air 03/08/24 18:44 Medical Decision Making [facility] Narrative Medical decision making narrative: Patient's wounds were redressed The patient is a chronic alcoholic and reports his last drink was several hours ago the patient has had episodes of alcohol withdrawal seizures the patient was given a dose of Librium in the emergency department to prevent for alcohol withdrawal Vital Signs Vital Signs: Vital Signs Temperature 36.6 C 03/08/24 18:44 Pulse Rate 114 H 03/08/24 18:44 Respiratory Rate 16 03/08/24 18:44 Blood Pressure 112/85 03/08/24 18:44 Pulse Oximetry 97 03/08/24 18:44 Oxygen Delivery Room Air 03/08/24 18:44 Temperature 36.6 C 03/08/24 18:44 Pulse Rate 114 H 03/08/24 18:44 Respiratory Rate 16 03/08/24 18:44 Blood Pressure 112/85 03/08/24 18:44 Pulse Oximetry 97 03/08/24 18:44 Oxygen Delivery Room Air 03/08/24 18:44 Discharge Plan Discharge Clinical Impression: Encounter for wound re-check Patient Disposition: Home, Self-Care Condition: Stable Instructions: Antibiotic Form, Acute Wounds (ED) Patient Language: Yoruba Prescriptions: No Action levetiracetam 1,000 mg tablet 1,000 mg PO BID 30 Days Qty: 60 0RF famotidine [Pepcid] 40 mg tablet 40 mg PO DAILY 30 Days Qty: 30 0RF folic acid 1 mg Tablet 1 mg PO DAILY Qty: 30 6RF thiamine HCl (vitamin B1) [Vitamin B-1] 100 mg Tablet 100 mg PO QAM Qty: 30 6RF amlodipine 5 mg tablet 5 mg PO DAILY gabapentin 300 mg capsule 300 mg PO Q8H acetaminophen 500 mg tablet 1,000 mg PO Q12H PRN (Reason: Pain, Fever) doxycycline hyclate 100 mg Tablet 100 mg PO Q12HR Qty: 3 0RF amoxicillin-pot clavulanate 875-125 mg tablet 1 tablet PO Q12H Qty: 7 0RF methocarbamol 500 mg tablet 500 mg PO Q8H PRN (Reason: Muscle Spasm) Qty: 5 0RF quetiapine 50 mg tablet 50 mg PO HS Qty: 10 0RF Follow-up/Referrals: Obed Wu MD [Physician] - PHYSICIAN,[facility] [Primary Care Provider] - Time of Disposition: 23:28
[2024-03-08 23:52] VITALS: BP 120/87; PULSE 76; RESP 16; TEMP 36.6; O2SAT 98
--- NOTE | 2024-03-08 23:52 | PC.NURSE ---
wound care provided by edward emerson prior to my taking over the team.
--- OUTSIDE RECORDS SUMMARY | 2024-03-15 05:30 | XMS_ITS | Continuity of Care Document ---
Author Organization [facility] Address [address] [place] [address] Care Team Providers Care Waste Disposal Plant Operator Name Role Phone Momo Lala MD Emergency Provider [phone] UNKNOWN, DOCTOR Primary Care Provider Unavail able PHYSICIAN, DIRECTOR SOFTWARE QUALITY ASSURANCE Primary Care Provider Unavail able Nidia Kevin PA-C Emergency Provider [phone] Jose Whitten MD Other Provider ROOM PHYSICIAN, EMERGENCY Emergency Provider Carina vailable Williams Neff MD Emergency Provider + Ferny Borden MD Emergency Provider Emanuel oCpeland MD Admit Provider Emanuel Copeland MD Attending Provider Shahram Swan MD Other Provider Hermilo Leal MD Other Provider [phone] Gustavo Armstrong MD Other Provider Imtiaz Reis MD Emergency Provider + Maribel Norman DO Other Provider [phone] Tami Figueredo PA-C Emergency Provider Care Teams Patient Care Team Team Status: Active Member Role Status Dates DIRECTOR SOFTWARE QUALITY ASSURANCE PHYSICIAN Primary Care Provider Active Visit Care Team Team Status: Inactive Member Role Status Dates Momo Lala MD Emergency Provider Active S tart: November 24, 2023 End: November 24, 2023 DOCTOR UNKNOWN Primary Care Provider Active S tart: November 24, 2023 End: November 24, 2023 Visit Care Team Team Status: Inactive Member Role Status Dates DIRECTOR SOFTWARE QUALITY ASSURANCE PHYSICIAN Primary Care Provider Active S tart: December 03, 2023 End: December 03, 2023 Nidia Kevin PA-C Emergency Provider Active Start: December 03, 2023 End: December 03, 2023 Jose Whitten MD Other Provider Active Start: O ctober 2023 End: December 03, 2023 Visit Care Team Team Status: Inactive Member Role Status Dates DIRECTOR SOFTWARE QUALITY ASSURANCE PHYSICIAN Primary Care Provider Active S tart: December 03, 2023 End: December 03, 2023 Momo Lala MD Emergency Provider Active S tart: December 03, 2023 End: December 03, 2023 Jose Whitten MD Other Provider Active Start: O ctober 2023 End: December 03, 2023 Visit Care Team Team Status: Inactive Member Role Status Dates Momo Lala MD Emergency Provider Active S tart: December 03, 2023 End: December 03, 2023 DOCTOR UNKNOWN Primary Care Provider Active S tart: December 03, 2023 End: December 03, 2023 Visit Care Team Team Status: Inactive Member Role Status Dates DOCTOR UNKNOWN Primary Care Provider Active S tart: December 20, 2023 End: December 20, 2023 EMERGENCY ROOM PHYSICIAN Emergency Provider Active Start: December 20, 2023 End: December 20, 2023 Visit Care Team Team Status: Inactive Member Role Status Dates DOCTOR UNKNOWN Primary Care Provider Active S tart: December 28, 2023 End: December 28, 2023 Williams Neff MD Emergency Provider Active Start: December 28, 2023 End: December 28, 2023 Visit Care Team Team Status: Inactive Member Role Status Dates DOCTOR UNKNOWN Primary Care Provider Active S tart: December 28, 2023 End: December 30, 2023 Ferny Borden MD Emergency Provider Active Start: December 28, 2023 End: December 30, 2023 Emanuel Copeland MD Admit Provider, Att ending Provider Active Start: December 28, 2023 End: December 30, 2023 Shahram Swan MD Other Provider Active Start: December 28, 2023 End: December 30, 2023 Hermilo Leal MD Other Provider Active Star t: December 28, 2023 End: December 30, 2023 Gustavo Armstrong MD Other Provider Active Start: December 28, 2023 End: December 30, 2023 Visit Care Team Team Status: Inactive Member Role Status Dates DOCTOR UNKNOWN Primary Care Provider Active S tart: January 05, 2024 End: January 05, 2024 Imtiaz Reis MD Emergency Provider Active Start: January 05, 2024 End: January 05, 2024 Visit Care Team Team Status: Inactive Member Role Status Dates Imtiaz Reis MD Emergency Provider Active Start: February 14, 2024 End: February 14, 2024 DIRECTOR SOFTWARE QUALITY ASSURANCE PHYSICIAN Primary Care Provider Active S tart: February 14, 2024 End: February 14, 2024 Maribel Norman DO Other Provider Active Start : February 14, 2024 End: February 14, 2024 Visit Care Team Team Status: Inactive Member Role Status Dates DIRECTOR SOFTWARE QUALITY ASSURANCE PHYSICIAN Primary Care Provider Active S tart: February 14, 2024 End: February 14, 2024 Tami Figueredo PA-C Emergency Provider Active Start: February 14, 2024 End: February 14, 2024 Patient Care Team Team Status: Active Member Role Status Dates DIRECTOR SOFTWARE QUALITY ASSURANCE PHYSICIAN Primary Care Provider Active S tart: February 16, 2024 Williams Neff MD Emergency Provider Active Start: February 16, 2024 Jose Whitten MD Other Provider Active Start: D [id number] Chief Complaint and Reason for Visit Chief Complaint Admit Date ANXIETY ATTACK November 24, 2023 5:54am anxiety related to health issue December 03, 2023 12:00am Right foot pain December 03, 2023 5: 32am Fall, Seizure activity, facial injury Oc tober 2023 8:17am anxiety December 20, 2023 4 :47pm FOOT PAIN December 28, 2023 1 2:29am ETOH Withdrawal December 28, 2023 9 :05am RIGHT FOOT & LEFT HAND PAIN January 3:56am 24 seizures, panic attacks, foot pain, h omeless February 14, 2024 10:24am needs dressing re done February 13 1:03pm CP WITH COUGHING, SICK X 2 DAYS February 16, 2024 5:21am Reason for Visit Admit Date Alcohol abuse December 28, 2023 9 :05am Alcohol withdrawal seizure December 28, 2023 9:05am Alcoholism December 28, 2023 9 :05am Anemia December 28, 2023 9 :05am Bipolar disorder December 28, 2023 9 :05am Depression with anxiety December 27 9:05am Hypertension December 28, 2023 9 :05am Tobacco abuse December 28, 2023 9 :05am Allergies, Adverse Reactions, Alerts No known allergies Social History Smoking Status Status Start Date End Date Date of Observa tion Smokes tobacco daily (finding) December 28, 2023 1:03pm Observation Status Observation Response Date of Response Do You Feel Safe in your Home? No O ctober 2023 12:03pm Has Lack of Trans Kept You F rom Med Appts or Getting Meds? Yes December 28, 2023 12:03pm In Past 12 Months, Were You Worried Your Food Would Run Out? Often True December 28, 2023 12:03pm What is Your Housing Situati on Today? I Do Not Have Housing December 28, 2023 12:03pm Are You Worried That in Next 2 Mo, You Won't Have Housing? Yes December 28, 2023 12:03pm Do You Have Trouble Paying Y our Heating Or Electricity Bill? Decline to Answer December 28, 2023 12:03p m Do You Have Trouble Paying F or Medicines? Decline to Answer December 28, 2023 12:03pm Are You Currently Unemployed and Looking for Work? Decline to Answer December 28, 2023 12:03pm Highest Level of Education Completed Decline to Answer December 28, 2023 12:03pm Do You Have Trouble With Childcare/Care of a Family Member? Decline to Answer December 28, 2023 12:03pm alcohol intake current December 27 12:03pm Substance use type does not use December 28, 2023 12:03pm Patient Sex Male February 15, 2 024 6:14am Assigned Sex Male [birth year] Family History Relationship Condition Age at Onset Recorded Date/T palmira father Alcohol abuse Unknown Tobacco abuse Unknown Problems Active Problems Medical Problem Onset Date Status Depression with anxiety Unknown Active Alcohol abuse Unknown Active Alcoholism Unknown Active Anemia Unknown Active Anxiety Unknown Active Bipolar disorder Unknown Active Hyperlipidemia Unknown Active Seizures Unknown Active Tobacco abuse Unknown Active Alcohol withdrawal seizure Unknown Activ e Hypertension Unknown Active Inactive/Resolved Problems Medical Problem Onset Date Status Encounter for wound care Unknown Resolve d No pertinent past medical history Unknown Resolved Fracture of rib Unknown Resolved Generalized body aches Unknown Resolved Alcohol withdrawal Unknown Resolved Anxiety Unknown Resolved Gastritis Unknown Resolved Encounter for medical screening examination Unkn own Resolved Encounter for medical screening examination Unkn own Resolved Drug-seeking behavior Unknown Resolved Acute anxiety Unknown Resolved Acute anxiety Unknown Resolved Homeless Unknown Resolved Homelessness Unknown Resolved Status epilepticus Unknown Resolved Chronic foot pain Unknown Resolved Acute hypokalemia Unknown Resolved Medications Medication Status Dose Units Route Directions Qty Days St art Date Stop Date End Date Instructions Adherence Levetiracet am 1,000 mg tablet Active 1000 MG PO TWICE A DAY 60 30 Octobe r 2022 11:00p m Famotidine (Pepcid) 40 mg tablet Active 40 MG PO DAILY Decobe r 2022 11:00p m Folic Acid 1 mg Tablet Active 1 MG PO DAILY July 03, 2022 11:00p m Thiamine Hcl (Vitamin B1) (Vitamin B-1) 100 mg Tablet Active 100 MG PO Every Morning July 03, 2022 11:00p m Ibuprofen 600 mg tablet Active 600 MG PO THREE TIMES A DAY July 17, 2022 11:00p m Immunizations Immunization Event Date Not Given Reason Dose Number [place] Lot Number Vaccine Information Statement (VIS) Detail Administration Location Pneumococcal Polysacc. Vaccine, 23 valent February 08, 2015 Tetanus, Diphtheria, Pertussis (Tdap) November 12, 2017 Tetanus, Diphtheria, Pertussis (Tdap) June 11, 2022 Relevant Diagnostic Tests and/or Laboratory Data Laboratory Results Test Date/Time Result Interpretation Reference Range Result Comment Performing Site White Blood Count December 03, 2023 7:40am 13.7 K/mm3 Above high normal 4.5-10.0 [facility] [id number] [address] [facility] [address] White Blood Count December 29, 2023 5:42am 7.0 K/mm3 4.5-10.0 [facility] [id number] [address] [facility] [address] White Blood Count February 16, 2024 5:40am 18.1 K/mm3 Above high normal 4.5-10.0 [facility] [id number] [address] [address] Red Blood Count December 03, 2023 7:40am 4.51 M/mm3 Below low normal 4.6-6.20 [facility] [id number] [address] [address] Red Blood Count December 29, 2023 5:42am 3.89 M/mm3 Below low normal 4.6-6.20 [facility] [id number] [address] [address] Red Blood Count February 16, 2024 5:40am 4.93 M/mm3 4.6-6.20 [facility] [id number] [address] [address] Hemoglobin December 03, 2023 7:40am 13.0 g/dL Below low normal 14.0-18.0 [facility] [id number] [address] [address] Hemoglobin December 29, 2023 5:42am 11.0 g/dL Below low normal 14.0-18.0 [facility] [id number] [address] [address] Hemoglobin February 16, 2024 5:40am 13.9 g/dL Below low normal 14.0-18.0 [facility] [id number] [address] [address] Hematocrit December 03, 2023 7:40am 41.8 % Below low normal 42.0-52.0 [facility] [id number] [address] [address] Hematocrit December 29, 2023 5:42am 34.5 % Below low normal 42.0-52.0 [facility] [id number] [facility] [address] [address] Hematocrit February 16, 2024 5:40am 41.1 % Below low normal 42.0-52.0 [facility] [id number] [facility] [address] [address] Mean Corpuscular Volume December 03, 2023 7:40am 92.7 fL 80-100 [facility] [id number] [address] [address] Mean Corpuscular Volume December 29, 2023 5:42am 88.7 fL 80-100 [facility] [id number] [facility] [address] [address] Mean Corpuscular Volume February 16, 2024 5:40am 83.4 fL 80-100 [facility] [id number] [address] [place] [address] Mean Corpuscular Hemoglobin December 03, 2023 7:40am 28.8 pg 26-34 [facility] [id number] [address] [place] [address] Mean Corpuscular Hemoglobin December 29, 2023 5:42am 28.3 pg 2634 [facility] [id number] [address] [place] [address] Mean Corpuscular Hemoglobin February 16, 2024 5:40am 28.2 pg 26-34 [facility] [id number] [address] [place] [address] Mean Corpuscular Hemoglobin Concent December 03, 2023 7:40am 31.1 g/dL Below low normal 36 [facility] [id number] [address] [place] [address] Mean Corpuscular Hemoglobin Concent December 29, 2023 5:42am 31.9 g/dL Below low normal [facility]36 [facility] [id number] [address] [place] [address] Mean Corpuscular Hemoglobin Concent February 16, 2024 5:40am 33.8 g/dL 3236 [facility] [id number] [address] [place] [address] Red Cell Distribution Width December 03, 2023 7:40am 18.8 % Above high normal 11.5-14.5 [facility] [id number] [address] [place] [address] Red Cell Distribution Width December 29, 2023 5:42am 15.4 % Above high normal 11.5-14.5 [facility] [id number] [address] [place] [address] Red Cell Distribution Width February 16, 2024 5:40am 16.3 % Above high normal 11.5-14.5 [facility] [id number] [address] [place] [address] Platelet Count December 03, 2023 7:40am 339 k/mm3 150-375 Delta: 159 on 12/13/22-1009 [facility] [id number] [address] [address] Platelet Count December 29, 2023 5:42am 185 k/mm3 150-375 [facility] [id number] [address] [address] Platelet Count February 16, 2024 5:40am 269 k/mm3 150-375 [facility] [id number] [address] [place] [address] Mean Platelet Volume December 03, 2023 7:40am 9.7 fL 7.4-10.4 [facility] [id number] [facility] [address] [address] Mean Platelet Volume December 29, 2023 5:42am 9.9 fL 7.4-10.4 [facility] [id number] [address] [place] [address] Mean Platelet Volume February 16, 2024 5:40am 9.6 fL 7.4-10.4 [facility] [id number] [address] [place] [address] Nucleated Red Blood Cells % December 03, 2023 7:40am 0.0 % 0.0-0.2 [facility] [id number] [facility] [address] [address] Nucleated Red Blood Cells % December 28, 2023 5:35am 0.0 % 0.0-0.2 [facility] [id number] [address] [place] [address] Nucleated Red Blood Cells % February 16, 2024 5:40am 0.0 % 0.0-0.2 [facility] [id number] [address] [place] [address] Immature Granulocyte % (Auto) December 03, 2023 7:40am 0.5 % 0-0.5 [facility] [id number] [address] [place] [address] Immature Granulocyte % (Auto) December 28, 2023 5:35am 0.4 % 0-0.5 [facility] [id number] [address] [place] [address] Immature Granulocyte % (Auto) February 16, 2024 5:40am 0.4 % 0-0.5 [facility] [id number] [address] [place] [address] Neutrophils (%) (Auto) December 03, 2023 7:40am 73.8 % Above high normal 45.5-73.1 [facility] [id number] [address] [place] [address] Neutrophils (%) (Auto) December 28, 2023 5:35am 62.7 % 45.5-73.1 [facility] [id number] [address] [place] [address] Neutrophils (%) (Auto) February 16, 2024 5:40am 84.0 % Above high normal 45.5-73.1 [facility] [id number] [address] [place] [address] Lymphocytes (%) (Auto) December 03, 2023 7:40am 18.9 % 18.3-44.2 [facility] [id number] [address] [place] [address] Lymphocytes (%) (Auto) December 28, 2023 5:35am 26.0 % 18.3-44.2 [facility] [id number] [address] [place] [address] Lymphocytes (%) (Auto) February 16, 2024 5:40am 6.3 % Below low normal 18.3-44.2 [facility] [id number] [address] [place] [address] Monocytes (%) (Auto) December 03, 2023 7:40am 5.4 % 2.6-8.5 [facility] [id number] [address] [place] [address] Monocytes (%) (Auto) December 28, 2023 5:35am 8.3 % 2.6-8.5 [facility] [id number] [address] [place] [address] Monocytes (%) (Auto) February 16, 2024 5:40am 8.9 % Above high normal 2.6-8.5 [facility] [id number] [address] [place] [address] Eosinophils (%) (Auto) December 03, 2023 7:40am 0.9 % 0-4.4 [facility] [id number] [address] [place] [address] Eosinophils (%) (Auto) December 28, 2023 5:35am 2.2 % 0-4.4 [facility] [id number] [address] [place] [address] Eosinophils (%) (Auto) February 16, 2024 5:40am 0.2 % 0-4.4 [facility] [id number] [address] [place] [address] Basophils (%) (Auto) December 03, 2023 7:40am 0.5 % 0.2-1.2 [facility] [id number] [address] [place] [address] Basophils (%) (Auto) December 28, 2023 5:35am 0.4 % 0.2-1.2 [facility] [id number] [address] [place] [address] Basophils (%) (Auto) February 16, 2024 5:40am 0.2 % 0.2-1.2 [facility] [id number] [address] [place] [address] Nucleated RBC Absolute Count (auto) December 03, 2023 7:40am 0.000 K/mm3 0.0-0.012 [facility] [id number] [address] [place] [address] Nucleated RBC Absolute Count (auto) December 28, 2023 5:35am 0.000 K/mm3 0.0-0.012 [facility] [id number] [address] [place] [address] Nucleated RBC Absolute Count (auto) February 16, 2024 5:40am 0.000 K/mm3 0.0-0.012 [facility] [id number] [address] [place] [address] Absolute Immature Granulocyte (auto December 03, 2023 7:40am 0.07 K/mm3 Above high normal 0.00-0.031 [facility] [id number] [address] [place] [address] Absolute Immature Granulocyte (auto December 28, 2023 5:35am 0.04 K/mm3 Above high normal 0.00-0.031 [facility] [id number] [address] [place] [address] Absolute Immature Granulocyte (auto February 16, 2024 5:40am 0.08 K/mm3 Above high normal 0.00-0.031 [facility] [id number] [address] [place] [address] Absolute Neutrophils (auto) December 03, 2023 7:40am 10.1 K/mm3 Above high normal 1.3-6.7 [facility] [id number] [address] [place], [place] [address] Absolute Neutrophils (auto) December 28, 2023 5:35am 5.8 K/mm3 1.3-6.7 [facility] [id number] [address] [place] [address] Absolute Neutrophils (auto) February 16, 2024 5:40am 15.2 K/mm3 Above high normal 1.3-6.7 [facility] [id number] [address] [place] [address] Lymphocytes # (Auto) December 03, 2023 7:40am 2.60 K/mm3 0.9-3.2 [facility] [id number] [address] [place] [address] Lymphocytes # (Auto) December 28, 2023 5:35am 2.40 K/mm3 0.9-3.2 [facility] [id number] [address] [place] [address] Lymphocytes # (Auto) February 16, 2024 5:40am 1.14 K/mm3 0.9-3.2 [facility] [id number] [address] [place] [address] Monocytes # (Auto) December 03, 2023 7:40am 0.7 K/mm3 Above high normal 0.1-0.6 [facility] [id number] [address] [place] [address] Monocytes # (Auto) December 28, 2023 5:35am 0.8 K/mm3 Above high normal 0.1-0.6 [facility] [id number] [address] [place] [address] Monocytes # (Auto) February 16, 2024 5:40am 1.6 K/mm3 Above high normal 0.1-0.6 [facility] [id number] [address] [place] [address] Eosinophils # (Auto) December 03, 2023 7:40am 0.1 K/mm3 0-0.3 [facility] [id number] [address] [place] [address] Eosinophils # (Auto) December 28, 2023 5:35am 0.2 K/mm3 0-0.3 [facility] [id number] [address] [place] [address] Eosinophils # (Auto) February 16, 2024 5:40am 0.0 K/mm3 0-0.3 [facility] [id number] [address] [place] [address] Basophils # (Auto) December 03, 2023 7:40am 0.1 K/mm3 0.0-0.1 [facility] [id number] [address] [place] [address] Basophils # (Auto) December 28, 2023 5:35am 0.0 K/mm3 0.0-0.1 [facility] [id number] [address] [place] [address] Basophils # (Auto) February 16, 2024 5:40am 0.0 K/mm3 0.0-0.1 [facility] [id number] [address] [place], [place] [address] Absolute Reticulocyte Count December 29, 2023 5:42am 0.05 10*6/uL 0.02-0.10 [facility] [id number] [address] [place] [address] Percent Reticulocyte Count December 29, 2023 5:42am 1.38 % 0.7-4.3 [facility] [id number] [address] [place], [place] [address] Immature Reticulocyte Fraction December 29, 2023 5:42am 12.8 % 3.0-15.9 [facility] [id number] [address] [place], [place] [address] Reticulocyte Hemoglobin Content December 29, 2023 5:42am 29.6 pg 28.2-36.6 [facility] [id number] [address] [place], [place] [address] Prothrombin Time December 03, 2023 7:40am 14.8 s Above high normal 11.1-14.7 [facility] [id number] [address] [place], [place] [address] Prothromb Time International Ratio December 03, 2023 7:40am 1.1 INR Indication----- ---- --------0.9 - 1.1 Patients not on anticoagulant therapy.2.0 - 3.0 Routine therapy.2.5 - 3.5 Recurrent myocardial infarction or mechanical prosthetic valves. [facility] [id number] [address] [address] Activated Partial Thromboplast Time December 03, 2023 7:40am 23.2 s 22.3-36.8 [facility] [id number] [address] [address] Urine Color December 03, 2023 8:58am Yellow Yellow [facility] [id number] [address] [facility] [address] [place] [address] Urine Appearance December 03, 2023 8:58am Clear Clear [facility] [id number] [address] [address] Urine pH December 03, 2023 8:58am 5.5 5.0-9.0 [facility] [id number] [address] [address] Urine Specific [place] December 03, 2023 8:58am 1.008 1.001-1.03 5 [facility] [id number] [address] [address] Urine Protein December 03, 2023 8:58am Negative mg/dL Negative [facility] [id number] [address] [address] Urine Glucose (UA) December 03, 2023 8:58am Negative mg/dL Negative [facility] [id number] [address] [address] Urine Ketones December 03, 2023 8:58am Negative mg/dL Negative [facility] [id number] [address] [address] Urine Blood (Manual) December 03, 2023 8:58am Negative Negative [facility] [id number] [address] [address] Urine Nitrate December 03, 2023 8:58am Negative Negative [facility] [id number] [address] [address] Urine Bilirubin December 03, 2023 8:58am Negative Negative [facility] [id number] [address] [address] Urine Urobilinogen December 03, 2023 8:58am 0.2 mg/dL <2.0 [facility] [id number] [address] [address] Urine Leukocyte Esterase (Reflex) December 03, 2023 8:58am Negative ANNI/UL Negative [facility] [id number] [address] [address] [place] [address] 67290 Urine Amphetamine Screen December 03, 2023 8:58am Negative Negative [facility] [id number] [address] [place] [address] 21134 Urine Amphetamine Screen December 28, 2023 1:34pm Negative Negative [facility] [id number] [address] [place] [address] 49032 Urine Barbiturates Screen December 03, 2023 8:58am Positive Abnormal (applies to non-numeric results) Negative [facility] [id number] [address] [place] [address] 12881 Urine Barbiturates Screen December 28, 2023 1:34pm Positive Abnormal (applies to non-numeric results) Negative [facility] [id number] [address] [place] [address] 33587 Urine Benzodiazepin es Screen December 03, 2023 8:58am Negative Negative [facility] [id number] [address] [place] [address] 42365 Urine Benzodiazepin es Screen December 28, 2023 1:34pm Negative Negative [facility] [id number] [address] [place] [address] 53158 Urine Cocaine Screen December 03, 2023 8:58am Negative Negative [facility] [id number] [address] [place] [address] 53730 Urine Cocaine Screen December 28, 2023 1:34pm Negative Negative [facility] [id number] [address] [place] [address] 03488 Urine Methadone Screen December 03, 2023 8:58am Negative Negative [facility] [id number] [address] [place] [address] 83416 Urine Methadone Screen December 28, 2023 1:34pm Negative Negative [facility] [id number] [address] [place] [address] 02613 Urine Opiates Screen December 03, 2023 8:58am Negative Negative [facility] [id number] [address] [place] [address] 58208 Urine Opiates Screen December 28, 2023 1:34pm Negative Negative [facility] [id number] [address] [place] [address] 38418 Urine Phencyclidine Screen December 03, 2023 8:58am Negative Negative [facility] [id number] [address] [place] [address] 31649 Urine Phencyclidine Screen December 28, 2023 1:34pm Negative Negative [facility] [id number] [address] [address] Urine Cannabinoids Screen December 03, 2023 8:58am Negative Negative This test provides only a preliminary test result.Clinical consideration and professional judgement must be applied to any drug of abuse test result, particularly in evaluating a preliminary positive result. In order to obtain a confirmed analytical results, a more specific alternate chemical method is needed.Gas Chromatography/ Mass Spectroscopy (GC/MS) is the preferred confirmatory method.Positive results should be detected when concentrations above the following are present:Ampheta mines 1000 ng/mlMethamphet amines 1000 ng/mlBarbiturat es 300 ng/mlBenzodiaze pines 300 ng/mlCocaine 300 ng/mlMethadone 300 ng/mlOpiates 300 ng/mlPhencyclid ine 25 ng/mlTHC 50 ng/ml [facility] [id number] [address] [place] [address] 31923 Urine Cannabinoids Screen December 28, 2023 1:34pm Negative Negative This test provides only a preliminary test result.Clinical consideration and professional judgement must be applied to any drug of abuse test result, particularly in evaluating a preliminary positive result. In order to obtain a confirmed analytical results, a more specific alternate chemical method is needed.Gas Chromatography/ Mass Spectroscopy (GC/MS) is the preferred confirmatory method.Positive results should be detected when concentrations above the following are present:Ampheta mines 1000 ng/mlMethamphet amines 1000 ng/mlBarbiturat es 300 ng/mlBenzodiaze pines 300 ng/mlCocaine 300 ng/mlMethadone 300 ng/mlOpiates 300 ng/mlPhencyclid ine 25 ng/mlTHC 50 ng/ml [facility] [id number] [address] [place] [address] 65414 Sodium Level December 03, 2023 7:40am 140 mmol/L 137-145 [facility] [id number] [address] [place] [address] 49173 Sodium Level December 29, 2023 4:02am 135 mmol/L Below low normal 137-145 [facility] [id number] [address] [place] [address] 78258 Sodium Level February 16, 2024 5:40am 131 mmol/L Below low normal 137-145 [facility] [id number] [address] [place] [address] 96944 Potassium Level December 03, 2023 7:40am 3.5 mmol/L 3.4-5.0 [facility] [id number] [address] [address] Potassium Level December 29, 2023 4:02am 3.5 mmol/L 3.4-5.0 [facility] [id number] [address] [place] [address] 05094 Potassium Level February 16, 2024 5:40am 3.9 mmol/L 3.4-5.0 [facility] [id number] [address] [place] [address] 01436 Chloride Level December 03, 2023 7:40am 101 mmol/L [address] [place] [address] Laboratory [id number] [address] [address] Chloride Level December 29, 2023 4:02am 109 mmol/L Above high normal [address] [place] [address] Laboratory [id number] [address] [address] Chloride Level February 16, 2024 5:40am 95 mmol/L Below low normal [address] [place] [address] Laboratory [id number] [address] [place] [address] 40026 Carbon Dioxide Level December 03, 2023 7:40am 10 mmol/L Below low normal [facility] [id number] [address] [address] Carbon Dioxide Level December 29, 2023 4:02am 22 mmol/L [facility] [id number] [address] [address] Carbon Dioxide Level February 16, 2024 5:40am 29 mmol/L [facility] [id number] [facility] [address] [address] Anion Gap December 03, 2023 7:40am 29 mmol/L Above high normal 06-12 [facility] [id number] [address] [address] Anion Gap December 29, 2023 4:02am 4 mmol/L 06-12 [facility] [id number] [address] [address] Anion Gap February 16, 2024 5:40am 7 mmol/L 06-12 [facility] [id number] [address] [address] Blood Urea Nitrogen December 03, 2023 7:40am 6 mg/dL Below low normal 9-20 Delta: 11 on 12/13/22-1009 [facility] [id number] [address] [place] [address] 30519 Blood Urea Nitrogen December 29, 2023 4:02am 3 mg/dL Below low normal - [facility] [id number] [address] [place] [address] 33454 Blood Urea Nitrogen February 16, 2024 5:40am 6 mg/dL Below low normal -20 [facility] [id number] [address] [place] [address] 69419 Creatinine December 03, 2023 7:40am 0.70 mg/dL 0.7-1.3 [facility] [id number] [address] [place] [address] 11244 Creatinine December 29, 2023 4:02am 0.60 mg/dL Below low normal 0.7-1.3 [facility] [id number] [address] [place] [address] 14971 Creatinine February 16, 2024 5:40am 0.50 mg/dL Below low normal 0.7-1.3 [facility] [id number] [address] [place] [address] 24620 Estimat Glomerular Filtration Rate December 03, 2023 7:40am > 60 >59 > OR = 60 ml/min/1.73 square metersThe MDRD formula used to calculate the eGFR result has not been validated in patients > 70 years of age. [facility] [id number] [address] [place] [address] 97747 Estimat Glomerular Filtration Rate December 29, 2023 4:02am > 60 >59 > OR = 60 ml/min/1.73 square metersThe MDRD formula used to calculate the eGFR result has not been validated in patients > 70 years of age. [facility] [id number] [address] [place] [address] 96019 Estimat Glomerular Filtration Rate February 16, 2024 5:40am > 60 >59 > OR = 60 ml/min/1.73 square metersThe MDRD formula used to calculate the eGFR result has not been validated in patients > 70 years of age. [facility] [id number] [address] [place] [address] 03003 Estimated Creatinine Clearance Calc December 03, 2023 7:40am 105 mL/min For use in prescription drug dose determination only. Reference ranges have not been establishe for this calculation. [facility] [id number] [address] [place] [address] 56895 Estimated Creatinine Clearance Calc December 29, 2023 4:02am 108 mL/min For use in prescription drug dose determination only. Reference ranges have not been establishe for this calculation. [facility] [id number] [address] [place] [address] 82548 Estimated Creatinine Clearance Calc February 16, 2024 5:40am 140 mL/min For use in prescription drug dose determination only. Reference ranges have not been establishe for this calculation. [facility] [id number] [address] [place] [address] 96105 Glucose Level December 03, 2023 7:40am 123 mg/dL Above high normal 65-110 [facility] [id number] [address] [place] [address] 11247 Glucose Level December 29, 2023 4:02am 87 mg/dL 65-110 [facility] [id number] [address] [place] [address] 23875 Glucose Level February 16, 2024 5:40am 125 mg/dL Above high normal 65-110 [facility] [id number] [address] [place] [address] 25136 POC Capillary Glucose December 03, 2023 7:31am 168 mg/dL Above high normal 65-105 [facility] POC Lactic Acid Level December 28, 2023 10:37am 0.8 mmol/L 0.7-2.0 [facility] [id number] [address] [place] [address] 95131 Lactic Acid Level February 16, 2024 5:40am 2.1 mmol/L Above high normal 0.7-2.0 [facility] [id number] [address] [place] [address] 89765 Calcium Level December 03, 2023 7:40am 8.3 mg/dL Below low normal 8.4-10.2 [facility] [id number] [address] [place] [address] 98115 Calcium Level December 29, 2023 4:02am 7.9 mg/dL Below low normal 8.4-10.2 [facility] [id number] [address] [place] [address] 67825 Calcium Level February 16, 2024 5:40am 9.0 mg/dL 8.4-10.2 [facility] [id number] [facility] [address] [address] Phosphorus Level December 03, 2023 7:40am 4.3 mg/dL 2.5-4.5 [facility] [id number] [address] [place] [address] 09223 Magnesium Level December 03, 2023 7:40am 1.9 mg/dL 1.6-2.3 [facility] [id number] [address] [place] [address] 67304 Magnesium Level December 29, 2023 4:02am 2.0 mg/dL 1.6-2.3 [facility] [id number] [address] [place] [address] 15516 Iron Level December 29, 2023 4:02am 169 ug/dL 49-181 [facility] [id number] [address] [place] [address] 56990 Total Iron Binding Capacity December 29, 2023 4:02am 310 ug/dL 265-497 [facility] [id number] [address] [place] [address] 82520 Percent Iron Saturation December 29, 2023 4:02am 55 % Above high normal 20-50 [facility] [id number] [address] [place] [address] 10064 Total Bilirubin December 03, 2023 7:40am 0.4 mg/dL 0.2-1.3 [facility] [id number] [address] [place] [address] 67490 Total Bilirubin December 29, 2023 4:02am 0.8 mg/dL 0.2-1.3 [facility] [id number] [address] [place] [address] 94161 Total Bilirubin February 16, 2024 5:40am 0.5 mg/dL 0.2-1.3 [facility] [id number] [address] [place] [address] 12408 Aspartate Amino Transf (AST/SGOT) December 03, 2023 7:40am 55 U/L 17-59 [facility] [id number] [facility] [address] [address] Aspartate Amino Transf (AST/SGOT) December 29, 2023 4:02am 24 U/L 17-59 [facility] [id number] [address] [place] [address] 96269 Aspartate Amino Transf (AST/SGOT) February 16, 2024 5:40am 57 U/L 17-59 [facility] [id number] [address] [place] [address] 39206 Alanine Aminotransfer ase (ALT/SGPT) December 03, 2023 7:40am 24 U/L -50 [facility] [id number] [address] [place] [address] 33277 Alanine Aminotransfer ase (ALT/SGPT) December 29, 2023 4:02am 8 U/L -50 [facility] [id number] [address] [place] [address] 80608 Alanine Aminotransfer ase (ALT/SGPT) February 16, 2024 5:40am 16 U/L -50 [facility] [id number] [address] [place] [address] 43941 Total Creatine Kinase December 03, 2023 7:40am 209 U/L Above high normal 55-170 [facility] [id number] [address] [place] [address] 89969 Total Creatine Kinase December 28, 2023 5:35am 121 U/L 55170 [facility] [id number] [address] [place] [address] 31535 Troponin I February 16, 2024 5:40am < 0.012 ng/mL 0.000-0.03 4 Acute myocardial injury is indicated by:1. A troponin value of >0.034 ng/mL and/or2. A 20% change in troponin value.Specimens with biotin concentrations up to 2.5 ng/mL demonstrate a less than or equal to 10% change in results. Biotin concentrations greater than this falsely decrease Troponin results for patient samples. [facility] [id number] [address] [place] [address] 83865 Total Protein December 03, 2023 7:40am 8.0 g/dL 6.3-8.2 [facility] [id number] [address] [place] [address] 58732 Total Protein December 29, 2023 4:02am 6.0 g/dL Below low normal 6.3-8.2 [facility] [id number] [address] [place] [address] 76674 Total Protein February 16, 2024 5:40am 7.0 g/dL 6.3-8.2 [facility] [id number] [address] [place] [address] 31176 Albumin December 03, 2023 7:40am 4.7 g/dL 3.5-5.1 [facility] [id number] [facility] [address] [address] Albumin December 29, 2023 4:02am 3.2 g/dL Below low normal 3.5-5.1 [facility] [id number] [address] [place] [address] 39831 Albumin February 16, 2024 5:40am 4.6 g/dL 3.5-5.1 [facility] [id number] [address] [place] [address] 05223 Alkaline Phosphatase December 03, 2023 7:40am 211 U/L Above high normal 38-126 [facility] [id number] [address] [place] [address] 29842 Alkaline Phosphatase December 29, 2023 4:02am 190 U/L Above high normal 38-126 [facility] [id number] [address] [place] [address] 58615 Alkaline Phosphatase February 16, 2024 5:40am 126 U/L 38-126 [facility] [id number] [address] [place] [address] 92948 Lipase December 03, 2023 7:40am 274 U/L 23-300 [facility] [id number] [address] [place] [address] 06736 Vitamin B12 Level December 29, 2023 4:02am 438.0 pg/mL 239-931 [facility] [id number] [address] [place] [address] 73359 Folate December 29, 2023 4:02am 16.3 ng/mL 2.76-20 [facility] [id number] [address] [place] [address] 97887 Thyroid Stimulating Hormone (Reflex December 03, 2023 7:40am 0.936 [iU]/mL 0.465-4.68 [facility] [id number] [address] [address] Thyroid Stimulating Hormone (Reflex December 29, 2023 4:02am 0.807 [iU]/mL 0.465-4.68 [facility] [id number] [address] [place] [address] 56504 Acetaminophen Level December 03, 2023 7:40am < 10 ug/mL Below low normal 10-30 [facility] [id number] [address] [place] [address] 08552 Ethyl Alcohol Level December 03, 2023 7:40am < 10 mg/dL <10 [facility] [id number] [address] [address] Ethyl Alcohol Level December 28, 2023 5:35am 38 mg/dL <10 [facility] [id number] [address] [address] Arterial Blood pH December 03, 2023 11:24am 7.487 Above high normal 7.350-7.45 0 [facility] [id number] [address] [address] Arterial Blood Partial Pressure CO2 December 03, 2023 11:24am 28.9 mm[Hg] Below low normal 35.0-45.0 [facility] [id number] [address] [address] Arterial Blood Partial Pressure O2 December 03, 2023 11:24am 180.9 mm[Hg] Above high normal 80.0-100.0 [facility] [id number] [address] [address] Arterial Blood HCO3 December 03, 2023 11:24am 21.4 meq/L Below low normal 22.0-26.0 [facility] [id number] [address] [address] Arterial Blood Base Excess December 03, 2023 11:24am -1.1 meq/L +/-2.0 [facility] [id number] [address] [address] Arterial Blood Oxygen Saturation December 03, 2023 11:24am 99.4 % 95.0-100.0 [facility] [id number] [facility] [address] [address] Total Hemoglobin December 03, 2023 11:24am 11.3 g/dL Below low normal 12.0-18.0 [facility] [id number] [address] [address] Blood Gas A-a Gradient December 03, 2023 11:24am 71.1 mm[Hg] [facility] [id number] [address] [address] Arterial Blood Oxygen Content December 03, 2023 11:24am 15.9 %{vol} Below low normal 16.0-22.0 [facility] [id number] [facility] [address] [address] Oxyhemoglobin December 03, 2023 11:24am 97.7 %{Hemoglobi n} 90.0-100.0 [facility] [id number] [address] [place] [address] 12023 Arterial Blood PO2/FiO2 Ratio December 03, 2023 11:24am 4.52 % [facility] [id number] [address] [place] [address] 23079 FiO2 December 03, 2023 11:24am 40 % [facility] [id number] [address] [place] [address] 53069 Blood Gas Puncture Site December 03, 2023 11:24am Right radial [facility] [id number] [address] [place] [address] 49943 Oxygen Delivery Device December 03, 2023 11:24am Ventilator [facility] [id number] 68[address] [facility] [address] [place] [address] 97451 Blood Gas Vent Rate December 03, 2023 11:24am 16 /MIN [facility] [id number] [address] [place] [address] 25105 Blood Gas Ventilator Mode December 03, 2023 11:24am Cmv [facility] [id number] [address] [place] [address] 29235 Bld Gas Peak Inspiratory Pressure December 03, 2023 11:24am Not Reportable [facility] [id number] [address] [place] [address] 15192 Blood Gas PEEP December 03, 2023 11:24am 5 cmH2O [facility] [id number] [address] [place] [address] 92436 Blood Gas Minute Volume December 03, 2023 11:24am [facility] [id number] [address] [place] [address] 06661 Blood Gas Tidal Volume December 03, 2023 11:24am 450 mL [facility] [id number] [address] [place] [address] 92033 Blood Gas Pressure Support December 03, 2023 11:24am Not Reportable [facility] [id number] [address] [place] [address] 15320 Oxygen Liters/Minute December 03, 2023 11:24am Not Reportable [facility] [id number] [address] [place] [address] 55612 Vital Signs Vital Reading Result Reference Range Collection Date/Time Height 71 [in_i] November 24, 2023 4:56am Weight 70.00 kg November 24, 2023 4:56am Body Temperature 98.2 [degF] 97.6-99.6 November 022023 4:56am Heart Rate 80 /min 60-100 November 24, 2023 7:51am Respiratory rate 16 /min -November 022023 7:51am Oxygen saturation by Pulse oximetry 100 % 90-100 November 24, 2023 7:51am BP Systolic 144 mm[Hg] 100-140 November 24, 2023 7:51am BP Diastolic 91 mm[Hg] 60-90 November 24, 2023 7:51am Height 71 [in_i] December 01 11:03pm Weight 65.00 kg December 01 11:03pm Body Temperature 97.3 [degF] 97.6-99.6 December 11:03pm Heart Rate 93 /min 60-December 02 12:38am Respiratory rate 20 /min 02-19 12:38am Oxygen saturation by Pulse oximetry 97 % 90-December 03, 2023 12 :38am BP Systolic 160 mm[Hg] 100-140 December 01, 11:03pm BP Diastolic 98 mm[Hg] 60-90 December 01, 11:03pm Height 71 [in_i] December 02 4:36am Weight 65.00 kg December 02 4:36am Body Temperature 98.2 [degF] 97.6-99.6 December 4:36am Heart Rate 123 /min 60-December 02 4:36am Respiratory rate 19 /min 02-19 4:36am Oxygen saturation by Pulse oximetry 99 % 90-December 03, 2023 4: 36am BP Systolic 150 mm[Hg] 100-140 December 02 4:36am BP Diastolic 92 mm[Hg] 60-90 December 02 4:36am Height 67 [in_i] December 02 7:17am Weight 67.60 kg December 02 7:17am Body Temperature 97.9 [degF] 97.6-99.6 December 11:01am Heart Rate 121 /min 60-100 December 02 2:31pm Respiratory rate 16 /min -December 2:31pm Oxygen saturation by Pulse oximetry 100 % 90-100 December 03, 2023 2: 31pm BP Systolic 150 mm[Hg] 100-140 December 02 2:31pm BP Diastolic 95 mm[Hg] 60-90 December 02 2:31pm Inhaled oxygen concentration 40 % December 03, 2023 1:22pm Body Temperature 97.7 [degF] 97.6-99.6 December 11:29pm Heart Rate 105 /min 60-100 December 27, 2 024 2:04am Respiratory rate 16 /min -December 2:04am Oxygen saturation by Pulse oximetry 97 % 90-100 December 28, 2023 2 :04am BP Systolic 137 mm[Hg] 100-140 December 27, 2 024 2:04am BP Diastolic 99 mm[Hg] 60-90 December 27, 2 024 2:04am Height 70 [in_i] December 27, 2 024 9:46am Weight 66.50 kg December 29, 2 024 3:58am Body Temperature 97.7 [degF] 97.6-99.6 December 3:58am Heart Rate 75 /min 60-100 December 29, 2 024 3:58am Respiratory rate 16 /min -December 3:58am Oxygen saturation by Pulse oximetry 97 % 90-100 December 30, 2023 3 :58am BP Systolic 130 mm[Hg] 100-140 December 29, 2 024 3:58am BP Diastolic 89 mm[Hg] 60-90 December 29, 2 024 3:58am BMI (Body Mass Index) 18.6 kg/m2 Octobe r 2023 10:38am Inhaled oxygen concentration 21 % December 28, 2023 10:55am Height 71 [in_i] January 04, 2 024 3:57am Weight 71.60 kg January 04, 2 024 3:57am Body Temperature 97.4 [degF] 97.6-99.6 January 3:57am Heart Rate 95 /min 60-100 January 04, 2 024 5:19am Respiratory rate 18 /min -January 5:19am Oxygen saturation by Pulse oximetry 100 % 90-100 January 05, 2024 5 :19am BP Systolic 115 mm[Hg] 100-140 January 04, 2 024 5:19am BP Diastolic 82 mm[Hg] 60-90 January 04, 2 024 5:19am Height 71 [in_i] February 14, 2024 10:46am Weight 65.00 kg February 14, 2024 10:46am Body Temperature 98.3 [degF] 97.6-99.6 February 132023 12:31pm Heart Rate 91 /min 60-100 February 14, 2024 12:31pm Respiratory rate 20 /min 12-20 February 132023 12:31pm Oxygen saturation by Pulse oximetry 100 % 90-100 February 14, 2024 12:31pm BP Systolic 120 mm[Hg] 100-140 February 14, 2024 12:31pm BP Diastolic 86 mm[Hg] 60-90 February 14, 2024 12:31pm Height 68 [in_i] February 14, 2024 1:05pm Weight 72.00 kg February 14, 2024 1:05pm Heart Rate 102 /min 60-100 February 14, 2024 1:37pm Respiratory rate 18 /min -February 132023 2:52pm Oxygen saturation by Pulse oximetry 98 % 90-100 February 14, 2024 2:52pm BP Systolic 134 mm[Hg] 100-140 February 14, 2024 1:37pm BP Diastolic 76 mm[Hg] 60-90 February 14, 2024 1:37pm Height 71 [in_i] February 16, 2024 5:21am Weight 65.00 kg February 16, 2024 5:21am Body Temperature 98.2 [degF] 97.6-99.6 February 152023 5:21am Heart Rate 128 /min 60-100 February 16, 2024 5:21am Respiratory rate 18 /min -February 152023 5:21am Oxygen saturation by Pulse oximetry 98 % 90-100 February 16, 2024 5:21am BP Systolic 126 mm[Hg] 100-140 February 16, 2024 5:21am BP Diastolic 94 mm[Hg] 60-90 February 16, 2024 5:21am Advance Directives Advance Directive Response Recorded Date/ Time Current Advance Directive No Octobe r 2023 9:52am Insurance Providers Guarantor Luis Desouza Address [address] [address] Contact Info. Home Phone: Payer Policy Id Coverage Id Subscriber's Name Subscriber Id Effective Date Expiration Date LESLIE Baez [id number] Luis Desouza [id number] 2015 Encounters Encounter Location(s) Arrival/Admit Date Discharge/Depart Date Provider(s) Departed [facility] Emergency Department November 24, 2023 4:54am November 24, 2023 7:52am Departed Emergency [facility] Emergency Department December 02, 2023 11:00pm December 03, 2023 1:35am Departed Emergency [facility] Emergency Department December 03, 2023 4:32am December 03, 2023 6:27am Departed Emergency [facility] Emergency Department December 03, 2023 7:17am December 03, 2023 2:50pm Departed Emergency [facility] Emergency Department December 20, 2023 3:47pm December 20, 2023 4:55pm Departed Emergency [facility] Emergency Department December 27, 2023 11:29pm December 28, 2023 2:50am Discharged [facility] 3 Med Surg December 28, 2023 8:05am December 30, 2023 2:00pm Emanuel Copeland MD Departed Emergency [facility] Emergency Department January 05, 2024 3:56am January 05, 2024 6:55am Departed Emergency [facility] Emergency Department February 14, 2024 10:24am February 14, 2024 12:52pm Departed Emergency [facility] Emergency Department February 14, 2024 1:03pm February 14, 2024 3:08pm Registered Emergency [facility] Emergency Department February 16, 2024 5:21am Recent Diagnosis Onset Date Admit Date Alcohol abuse Unknown December 27 9:05am Alcohol withdrawal seizure Unknown Octob er 2023 9:05am Alcoholism Unknown December 27 9:05am Anemia Unknown December 27 9:05am Bipolar disorder Unknown December 27, 2 024 9:05am Depression with anxiety Unknown December 28, 2023 9:05am Hypertension Unknown December 27 9:05am Tobacco abuse Unknown December 27 9:05am Assessments Diagnosis Onset Date Resolution Status Admit Date Alcohol abuse acute December 9:05am Alcohol withdrawal seizure acute December 28, 2023 9:05am Alcoholism acute December 28, 2023 9:05am Anemia acute December 28, 2023 9:05am Bipolar disorder acute December 28, 2023 9:05am Depression with anxiety acute O ctober 2023 9:05am Hypertension acute December 9:05am Tobacco abuse acute December 9:05am Plan of Treatment Future Tests Future scheduled test information is unavailable Pending Tests Test Name Ordered Date Scheduled Date SARS-CoV-2 RNA (RT-PCR) February 16, 2024 5:40 am Influenza Type B (RT-PCR) February 16, 2024 5: 40am Influenza Type A (RT-PCR) February 16, 2024 5: 40am Respiratory Syncytial Virus (RT-PCR January 5:40am Future Visits Future appointment information is unavailable Referrals to Other Providers Reason for Referral Referral Start Date Provider Provider Contact Information Provider Address DIRECTOR SOFTWARE QUALITY ASSURANCE PHYSICIAN DIRECTOR SOFTWARE QUALITY ASSURANCE PHYSICIAN Jose Whitten MD Work Phone : [address] [place] [address] [address] [facility] [id number] DIRECTOR SOFTWARE QUALITY ASSURANCE PHYSICIAN DOCTOR UNKNOWN DOCTOR UNKNOWN DOCTOR UNKNOWN DOCTOR UNKNOWN DIRECTOR SOFTWARE QUALITY ASSURANCE PHYSICIAN DOCTOR UNKNOWN Maribel Norman DO Work Phone: [phone] [facility] [address] [place] [id number] DIRECTOR SOFTWARE QUALITY ASSURANCE PHYSICIAN Future Procedures Procedure Name Ordered Date Scheduled Date Restraint-Adult Non-Violent/ Non-Self Destructive December 03, 2023 9:11am December 03, 2023 8:25am Placement to Observation December 28, 2023 8:04 am December 28, 2023 8:05am Covid Flu RSV PCR February 16, 2024 5:24am Dec ember 2023 5:40am Future Medications Future medication information is unavailable Patient Instructions Instruction Admit Date Antibiotic Form Anxiety (ED) November 24, 2023 5:54am Antibiotic Form Anxiety (ED) December 03, 2023 12:00am Antibiotic Form Arthralgia (ED) December 03, 2023 5:32am Antibiotic Form Metatarsalgia (DC) December 28, 2023 12:29am How to Stop Smoking (GEN) December 28, 2023 9:05am Antibiotic Form Normal Exam (ED) January 05, 2024 3:56am Antibiotic Form Normal Exam (ED) February 14, 2024 10:24am Antibiotic Form Chronic Wounds (ED) February 14, 2024 1:03pm Goals Acute Goals Author Authored Date Verbalizes/Demonstrates Unde rstanding *Demonstrates understanding of teaching [facility] December 30, 2023 2:36pm Participate in Discharge Loli nning In order to achieve this outcome, the patient/ and or family will: * assist in identification of DME needs * assist in identification of community resource needs * assist in identification of appropriate discharge destination [facility] December 30, 2023 2:36pm Develop pain management prog bibi In order to achieve this outcome the patient will: * Use the pain scale appropriately * Identify options for pain control - Analgesics - Narcotics - Non-medication measures [facility] December 30, 2023 2:36pm Increase knowledge regarding pain mgmt *Demonstrates understanding of teaching [facility] December 30, 2023 2:36pm Identify specific home maint enance plan * Identifies factors that restrict self-care * Identifies factors that restrict environment management [facility] December 30, 2023 2:36pm Increase knowledge - smoking cessation Pt will verbalize understanding of smoking cessation resources [facility] December 30, 2023 2:36pm Exhibit intact skin * Skin remains intact [facility] December 30, 2023 2:36pm Remain free of injury *Follows Safety Interventions [facility] December 30, 2023 2:36pm Maintain an effective breath ing pattern * Maintains a patent airway * Maintains vital signs WNL * Maintains optimal breath sounds [facility] December 30, 2023 2:36pm Exhibits optimal GI function *Exhibits adequate intake and output *Exhibits adequate nutritional status [facility] December 30, 2023 2:36pm Exhibit optimal tissue integ rity * Exhibits granulation/healing at site * Exhibits decreased drainage at site * Exhibits no s/s of infection * Exhibits a decrease in lesion size * Maintains nutritional status * Maintains hydration status * Maintains optimal lab values [facility] December 30, 2023 2:36pm Maintains/improves level of orientation * Orients to person/place/time/situation [facility] December 30, 2023 2:36pm Improved nutritional status [facility] December 30, 2023 2:36pm Progress Note Author Modesto deras [facility] Note Date/Time February 14, 2024 12:52pm [facility] [address] [place] [id number] Emergency Room Visit Note Signed Patient: Luis Desouza MR#: [id number] : 1975 Acct:[id number] Age: 48 ADM Date: 02/14/24 Loc: [facility] Attending Dr: cc: Modesto Reis MD; DIRECTOR SOFTWARE QUALITY ASSURANCE PHYSICIAN; UNKNOWN,DOCTOR~ HPI - General Adult General Chief complaint: Unspecified Stated complaint: 24 seizures, panic attacks, foot pain, homeless Time Seen by Provider: 02/14/24 11:02 History of Present Illness HPI narrative: patient is a 48-year-old gentleman presents emergency department chief complaint of weakness. Patient reports that he was at [facility] and was discharged in the last 24 hours the patient states that he was discharged to [facility] and then walked across the street [facility] since that he had a little bit of a difficult time walking over to [facility] and reportsthat he was there too long. The patient reports he has had multiple panic attacks since he was discharged as he is worried about multiple different things. Related Data Allergies Allergy/AdvReac Type Severity Reaction Status Date / Time No Known Allergies Allergy Verified 12/28/23 00:35 Review of Systems Review of Systems: A 10 system review of systems was completed on the patient and is negative except for what is stated in the HPI. Nursing and ancillary documentation was reviewed. [facility] Past Medical History Medical History Tobacco abuse Depression with anxiety Alcoholism Bipolar disorder Hypertension Hyperlipidemia Amputation of one or more toes Distal right foot. Distal left fingers. Anxiety Seizures Surgical History Surgical History History of appendectomy Family History Family History Father Alcohol abuse Tobacco abuse Social History Social History Social History: Smokes 5 cigarettes per day, more when he can afford it. Started smoking around age 25. Drinks about 72 oz of beer per day (3 x 24oz cans). Rarely drinks any other alcoholic beverages. He is estranged from his mother. No children. He is homeless. He denies any illicit drugs. Code status full code Smoking packs per day: 0.25 Smoking cigarettes per day: 5.0 Years smoked: 23 Smoking pack-years: 5.75 Smoking status: Current every day smoker Tobacco type: cigarettes Second hand tobacco smoke exposure: Yes Additional smoking assessment comments: patient states its a different amountall the time Alcohol intake: current Drinks per week: 42 Substance use: never Substance use type: does not use Do You Feel Safe in your Home?: No Lack of Transportation: YES Lack of Food: Often True Current Housing: I Do Not Have Housing Concerned About Future Housing: YES Difficulty Paying Gas/Electric Bills: Decline to Answer Difficulty Paying for Meds: Decline to Answer Currently Unemployed: Decline to Answer Education: Decline to Answer Difficulty w/ Childcare or Family Care: Decline to Answer Living arrangements: homeless Spiritual care concerns: No Exam Narrative: GENERAL: Well-appearing, well-nourished, and in no acute distress. HEAD: Normocephalic, atraumatic. EYES: PERRLA and EOMI. ENT: Nares clear, no rhinorrhea or epistaxis. Mucous membranes moist. NECK: Supple. CHEST: Clear to auscultation. No respiratory distress. HEART: Regular rate and rhythm. No murmur heard. Normal peripheral pulses. ABDOMEN: Soft, nontender, nondistended, normal active bowel sounds. EXTREMITIES: Normal range of motion he chronic wounds are well approximated on the right foot. No edema. SKIN: Warm, dry, no rash. NEURO: No focal deficits. Alert and oriented x3. PSYCH: Normal mood and affect. Course Vital Signs Vital signs: Vital Signs Temperature 36.6 C 02/14/24 10:46 Pulse Rate 51 L 02/14/24 10:46 Respiratory Rate 18 02/14/24 10:46 Blood Pressure 146/98 H 02/14/24 10:46 Pulse Oximetry 100 02/14/24 10:46 Oxygen Delivery Room Air 02/14/24 10:46 Temperature 36.8 C 02/14/24 11:28 Pulse Rate 96 02/14/24 11:28 Respiratory Rate 18 02/14/24 11:28 Blood Pressure 142/99 H 02/14/24 11:28 Pulse Oximetry 99 02/14/24 11:28 Oxygen Delivery Room Air 02/14/24 10:46 Medical Decision Making MDM Narrative Medical decision making narrative: the patient is currently alert oriented there is no acute emergency medical condition present. The patient will be discharged to follow-up as an outpatient. Vital Signs Vital Signs: Vital Signs Temperature 36.6 C 02/14/24 10:46 Pulse Rate 51 L 02/14/24 10:46 Respiratory Rate 18 02/14/24 10:46 Blood Pressure 146/98 H 02/14/24 10:46 Pulse Oximetry 100 02/14/24 10:46 Oxygen Delivery Room Air 02/14/24 10:46 Temperature 36.8 C 02/14/24 11:28 Pulse Rate 96 02/14/24 11:28 Respiratory Rate 18 02/14/24 11:28 Blood Pressure 142/99 H 02/14/24 11:28 Pulse Oximetry 99 02/14/24 11:28 Oxygen Delivery Room Air 02/14/24 10:46 Discharge Plan Discharge Clinical Impression: Encounter for medical screening examination Patient Disposition: Home, Self-Care Condition: Stable Instructions: Antibiotic Form, Normal Exam (ED) Additional Instructions: Today there were no acute emergency medical conditions. It is recommended that you follow-up with your primary care provider and also contact community resources for additional assistance with housing Patient Language: Eritrean Prescriptions: No Action levetiracetam 1,000 mg tablet 1,000 mg PO BID 30 Days Qty: 60 0RF famotidine [Pepcid] 40 mg tablet 40 mg PO DAILY 30 Days Qty: 30 0RF folic acid 1 mg Tablet 1 mg PO DAILY Qty: 30 6RF thiamine HCl (vitamin B1) [Vitamin B-1] 100 mg Tablet 100 mg PO QAM Qty: 30 6RF ibuprofen 600 mg tablet 600 mg PO TID Qty: 20 0RF Follow-up/Referrals: UNKNOWN,DOCTOR [Non-Staff] - Maribel Norman DO [Physician] - Time of Disposition: 12:20 This report may have been done utilizing a voice recognition system. Attempts have been made to correct errors. However, there may be uncorrected grammatical, spelling, and recognition errors present. Report Initialized date/time: Modesto Reis MD 02/14/24 / 1114 Electronically signed by: Modesto Reis MD 02/15/24 0756
--- OUTSIDE RECORDS SUMMARY | 2024-03-15 05:30 | XMS_ITS | CONTINUITY OF CARE DOCUMENT ---
Author Name casey peña Address Unknown Organization [facility] Address [address] [place] [address] Phone [phone] Care Team Providers Care Laundrette Owner Name Role Phone Sanket Telles MD Unavailable Sanket Telles MD Unavailable INSURANCE PROVIDERS Payer name Policy type / Coverage type [place] red democrat [place] Medicaid [id number]
--- OUTSIDE RECORDS SUMMARY | 2024-03-15 07:03 | XMS_ITS | CONTINUITY OF CARE DOCUMENT ---
Author Name casey peña Address Unknown Organization [facility] Address [address] [place] [address] Phone [phone] Care Team Providers Care Binder Caser Name Role Phone Sanket Telles MD Unavailable [phone] Sanket Telles MD Unavailable [phone] INSURANCE PROVIDERS Payer name Policy type / Coverage type [place] red libertarian [place] MED[place] Medicaid [id number]
== END 2024-03-08 23:53 | disposition home or self-care (01) ==
PROVIDERS: Emergency Provider Emergency Medicine
DX: T33.821D Superficial frostbite of right foot, subsequent encounter (principal); T33.522D Superficial frostbite of left hand, subsequent encounter; X31.XXXD Exposure to excessive natural cold, subsequent encounter; Z48.00 Encounter for change or removal of nonsurgical wound dressing; I10 Essential (primary) hypertension; E78.5 Hyperlipidemia, unspecified; F41.8 Other specified anxiety disorders; F17.210 Nicotine dependence, cigarettes, uncomplicated; F10.20 Alcohol dependence, uncomplicated; Z59.00 Homelessness unspecified; Z89.022 Acquired absence of left finger(s); Z89.431 Acquired absence of right foot; Z79.899 Other long term (current) drug therapy; Y90.9 Presence of alcohol in blood, level not specified
CPT/HCPCS: 99283; A9270

== ENCOUNTER 2024-03-17 15:18 | Emergency (ER) | payer OTHER, SELFPAY ==
[2024-03-17 15:23] VITALS: BP 113/77; PULSE 89; RESP 17; TEMP 36.3; O2SAT 99
--- NOTE | 2024-03-17 15:27 | ED_ITS ---
HPI - General Adult General Chief complaint: Extremity Problem,Nontraumatic <Nidia Kevin PA-C - Last Filed: 03/17/24 15:31> Stated complaint: foot pain <Nidia Kevin PA-C - Last Filed: 03/17/24 15:31> Time Seen by Provider: 03/17/24 16:57 <Nidia Kevin PA-C - Last Filed: 03/17/24 15:31> Focused HPI: 48 y/o M history of homelessness, seizure disorder, alcohol abuse, hypertension, anxiety presents to the ED via EMS because the police found him outside of a gas station. Patient states he was taking outside of a gas station when the police came and told him that he is not allowed to hang out outside of a gas station. Apparently EMS was then contacted the patient was transported to the ED for an unknown reason. When I ask him why he is here he states because PD made him in because he needs a new boot for his left foot. Patient has a partial left foot amputation with a postop shoe in place. He denies other medical complaints. Admits to drinking alcohol. When I asked, she drank today he says ?a lot?. This is last drink was around 130. Denies drug use. States he has been drinking daily for 29 years. GENERAL: Well-appearing, well-nourished, and in no acute distress. Intoxicated HEAD: Normocephalic, atraumatic. CHEST: Clear to auscultation. ?No respiratory distress. EXT: Left foot with toes 1-5 amputated, small area of scabbing, evidence of infection, no drainage HEART: Regular rate and rhythm.? NEURO: ?Alert and oriented x3. Patient screened in triage and initial orders placed.? ?Additional care and disposition to be based upon?diagnostic testing and treatment. <Nidia Kevin PA-C - Last Filed: 03/17/24 15:31> Focused HPI: 48 y/o M history of homelessness, seizure disorder, alcohol abuse, hypertension, anxiety presents to the ED via EMS because the police found him outside of a gas station. Patient states he was taking outside of a gas station when the police came and told him that he is not allowed to hang out outside of a gas station. Apparently EMS was then contacted the patient was transported to the ED for an unknown reason. When I ask him why he is here he states because PD made him in because he needs a new boot for his left foot. Patient has a partial left foot amputation with a postop shoe in place. He denies other medical complaints. Admits to drinking alcohol. When I asked, she drank today he says ?a lot?. This is last drink was around 130. Denies drug use. States he has been drinking daily for 29 years. GENERAL: Well-appearing, well-nourished, and in no acute distress. Intoxicated HEAD: Normocephalic, atraumatic. CHEST: Clear to auscultation. ?No respiratory distress. EXT: Left foot with toes 1-5 amputated, small area of scabbing, evidence of infection, no drainage HEART: Regular rate and rhythm.? NEURO: ?Alert and oriented x3. Patient screened in triage and initial orders placed.? ?Additional care and disposition to be based upon?diagnostic testing and treatment. <Tami Figueredo PA-C - Last Filed: 03/17/24 22:01> Source: patient <Tami Figueredo PA-C - Last Filed: 03/17/24 22:01> Mode of arrival: ambulatory <Tami Figueredo PA-C - Last Filed: 03/17/24 22:01> Limitations: no limitations <JOHNSON Coon Last Filed: 03/17/24 22:01> History of Present Illness HPI narrative: Agree with above HPI. Patient is homeless and well-known to our facility. Seen here frequently for wound care to his previously partially amputated right foot. Denies any fevers. He has no other complaints. <MEETA Coon Last Filed: 03/17/24 22:01> Related Data Home medications: Home Medications ?Medication ?Instructions ?Recorded ?Confirmed ?Last Taken ?Type acetaminophen 500 mg tablet 1,000 mg PO Q12H PRN Pain, Fever 02/16/24 02/16/24 Unknown History amlodipine 5 mg tablet 5 mg PO DAILY 02/16/24 02/16/24 Unknown History gabapentin 300 mg capsule 300 mg PO Q8H 02/16/24 02/16/24 Unknown History <Nidia Kevin PA-C - Last Filed: 03/17/24 15:31> Allergies/adverse reactions: Allergies Allergy/AdvReac Type Severity Reaction Status Date / Time No Known Allergies Allergy Verified 03/17/24 15:19 <Nidia Kevin PA-C - Last Filed: 03/17/24 15:31> Review of Systems Review of Systems: All systems reviewed & are unremarkable except as noted in HPI. <Tami Figueredo PA-C - Last Filed: 03/17/24 22:01> All systems reviewed & are unremarkable except as noted in HPI and below <Tami Figueredo PA-C - Last Filed: 03/17/24 22:01> [facility] Past Medical History Medical History: Medical History Tobacco abuse Depression with anxiety Alcoholism Bipolar disorder Hypertension Hyperlipidemia Amputation of one or more toes Distal right foot. Distal left fingers. Anxiety Seizures <Nidia Kevin PA-C - Last Filed: 03/17/24 15:31> Surgical History Surgical History: Surgical History History of appendectomy <Nidia Kevin PA-C - Last Filed: 03/17/24 15:31> Family History Family History: Family History Father Alcohol abuse Tobacco abuse <Nidia Kevin PA-C - Last Filed: 03/17/24 15:31> Social History Social History: Social History Social History: Smokes 5 cigarettes per day, more when he can afford it. Started smoking around age 25. Drinks about 72 oz of beer per day (3 x 24oz cans). Rarely drinks any other al coholic beverages. He is estranged from his mother. No children. He is homeless. He denies any illicit drugs. Code status full code Smoking packs per day: 0.25 Smoking cigarettes per day: 5.0 Years smoked: 23 Smoking pack-years: 5.75 Smoking status: Current every day smoker Tobacco type: cigarettes Second hand tobacco smoke exposure: Yes Additional smoking assessment comments: patient states its a different amount all the time Alcohol intake: current Drinks per week: 35 Substance use: never Substance use type: does not use Do You Feel Safe in your Home?: Yes Lack of Transportation: No Lack of Food: Often True Current Housing: I Do Not Have Housing Concerned About Future Housing: YES Difficulty Paying Gas/Electric Bills: YES Difficulty Paying for Meds: YES Currently Unemployed: No Education: Don't Know Difficulty w/ Childcare or Family Care: No Living arrangements: homeless Spiritual care concerns: No <Nidia Kevin PA-C - Last Filed: 03/17/24 15:31> Exam Narrative: GENERAL: Unkempt and disheveled, non-toxic, in no acute distress. HEAD: Normocephalic, atraumatic. RESPIRATORY: Airway patent, respirations nonlabored. CARDIOVASCULAR: Regular rate and rhythm. Pedal pulses are intact. MUSCULOSKELETAL: Moves all extremities. Midfoot amputation of right foot. Stump appears well, small superficial ulceration present without erythema or drainage. No other signs of infection. SKIN: Warm, dry, normal color. NEURO: A&O X3. Speech clear. Steady gait. No ataxic movements. PSYCHIATRIC: Appropriate mood and affect. Normal interaction. <Tami Figueredo PA-C - Last Filed: 03/17/24 22:01> Course Vital Signs Vital signs: Vital Signs Temperature 97.4 F L 03/17/24 15:23 Pulse Rate 89 03/17/24 15:23 Respiratory Rate 17 03/17/24 15:23 Blood Pressure 113/77 03/17/24 15:23 Pulse Oximetry 99 03/17/24 15:23 Oxygen Delivery Room Air 03/17/24 15:23 Temperature 97.6 F 03/17/24 17:46 Pulse Rate 78 03/17/24 17:46 Respiratory Rate 16 03/17/24 17:46 Blood Pressure 120/78 03/17/24 17:46 Pulse Oximetry 100 03/17/24 17:46 Oxygen Delivery Room Air 03/17/24 15:23 <Nidia Kevin PA-C - Last Filed: 03/17/24 15:31> Vital Signs Temperature 97.4 F L 03/17/24 15:23 Pulse Rate 89 03/17/24 15:23 Respiratory Rate 17 03/17/24 15:23 Blood Pressure 113/77 03/17/24 15:23 Pulse Oximetry 99 03/17/24 15:23 Oxygen Delivery Room Air 03/17/24 15:23 Temperature 97.6 F 03/17/24 17:46 Pulse Rate 78 03/17/24 17:46 Respiratory Rate 16 03/17/24 17:46 Blood Pressure 120/78 03/17/24 17:46 Pulse Oximetry 100 03/17/24 17:46 Oxygen Delivery Room Air 03/17/24 15:23 <JOHNSON Coon Last Filed: 03/17/24 22:01> Medical Decision Making MDM Narrative Medical decision making narrative: Patient presented to the ED for wound care to his right foot. Well known to our facility. Is homeless. History of partial amputation to right foot. No evidence of infection at this time. Stump appears well. This was re-bandaged and patient given new/better fitting postop shoe. Care coordination was consulted and patient was provided with a cab voucher to go to a warming/homeless half-way for the night. He is in agreement this plan. He has no other concerns. Left our facility in stable condition. <Tami Figueredo PA-C - Last Filed: 03/17/24 22:01> Medical Records Medical records reviewed: Yes I reviewed the external patient's medical records. <JOHNSON Coon Last Filed: 03/17/24 22:01> Vital Signs Vital Signs: Vital Signs Temperature 97.4 F L 03/17/24 15:23 Pulse Rate 89 03/17/24 15:23 Respiratory Rate 17 03/17/24 15:23 Blood Pressure 113/77 03/17/24 15:23 Pulse Oximetry 99 03/17/24 15:23 Oxygen Delivery Room Air 03/17/24 15:23 Temperature 97.6 F 03/17/24 17:46 Pulse Rate 78 03/17/24 17:46 Respiratory Rate 16 03/17/24 17:46 Blood Pressure 120/78 03/17/24 17:46 Pulse Oximetry 100 03/17/24 17:46 Oxygen Delivery Room Air 03/17/24 15:23 <JOHNSON Maciel Last Filed: 03/17/24 15:31> Vital Signs Temperature 97.4 F L 03/17/24 15:23 Pulse Rate 89 03/17/24 15:23 Respiratory Rate 17 03/17/24 15:23 Blood Pressure 113/77 03/17/24 15:23 Pulse Oximetry 99 03/17/24 15:23 Oxygen Delivery Room Air 03/17/24 15:23 Temperature 97.6 F 03/17/24 17:46 Pulse Rate 78 03/17/24 17:46 Respiratory Rate 16 03/17/24 17:46 Blood Pressure 120/78 03/17/24 17:46 Pulse Oximetry 100 03/17/24 17:46 Oxygen Delivery Room Air 03/17/24 15:23 <JOHNSON Coon Last Filed: 03/17/24 22:01> Discharge Plan Discharge Clinical Impression: Partial nontraumatic amputation of right foot, Homelessness, Encounter for wound care <JOHNSON Maciel Last Filed: 03/17/24 15:31> Patient Disposition: Other <JOHNSON Maciel Last Filed: 03/17/24 15:31> Condition: Stable <JOHNSON Maciel Last Filed: 03/17/24 15:31> Instructions: Antibiotic Form, Chronic Wounds (ED) <JOHNSON Maciel Last Filed: 03/17/24 15:31> Patient Language: Khmer <JOHNSON Maciel Last Filed: 03/17/24 15:31> Prescriptions: No Action levetiracetam 1,000 mg tablet 1,000 mg PO BID 30 Days Qty: 60 0RF famotidine [Pepcid] 40 mg tablet 40 mg PO DAILY 30 Days Qty: 30 0RF folic acid 1 mg Tablet 1 mg PO DAILY Qty: 30 6RF thiamine HCl (vitamin B1) [Vitamin B-1] 100 mg Tablet 100 mg PO QAM Qty: 30 6RF amlodipine 5 mg tablet 5 mg PO DAILY gabapentin 300 mg capsule 300 mg PO Q8H acetaminophen 500 mg tablet 1,000 mg PO Q12H PRN (Reason: Pain, Fever) doxycycline hyclate 100 mg Tablet 100 mg PO Q12HR Qty: 3 0RF amoxicillin-pot clavulanate 875-125 mg tablet 1 tablet PO Q12H Qty: 7 0RF methocarbamol 500 mg tablet 500 mg PO Q8H PRN (Reason: Muscle Spasm) Qty: 5 0RF quetiapine 50 mg tablet 50 mg PO HS Qty: 10 0RF <Nidia Kevin PA-C - Last Filed: 03/17/24 15:31> Follow-up/Referrals: PHYSICIAN,BUFFET ATTENDANT [Primary Care Provider] - <Nidia Keivn PA-C - Last Filed: 03/17/24 15:31> Time of Disposition: 17:22 <Nidia Kevin PA-C - Last Filed: 03/17/24 15:31> 17:22 <Tami Figueredo PA-C - Last Filed: 03/17/24 22:01>
--- NOTE | 2024-03-17 17:16 | PCCCNOTE ---
Called to the pt's room to assist with placement d/t him being homeless. Pt initially wanted to go to [facility] however was not able to provide a name of a person or location for him to stay and wanted to be dropped off near a bar. Pt was picked up today outside of a gas station when he was falling asleep. Educated the pt with the extreme temperatures of 20 degrees currently he required long-term. Pt became agreeable to [facility] on [address] [place] [address] in [place] this evening where he is aware he cannot consume alcohol. Taxi voucher provided for safe transport to this location. Shared other homeless resources and recovery information with long-term with Sai moving forward. Pt is currently agreeable to the plan.-olga.
--- NOTE | 2024-03-17 17:21 | ED_ITS ---
HPI - Extremity Problem General Chief complaint: Extremity Problem,Nontraumatic Stated complaint: foot pain Time Seen by Provider: 03/17/24 16:57 Source: patient Mode of arrival: EMS Limitations: no limitations History of Present Illness HPI Narrative: Patient is a 48-year-old male who presents the ED via EMS with concern for his right foot. Patient is homeless and well-known to our facility. Seen here frequently for wound care to his previously partially amputated right foot. Denies any fevers. Patient was reportedly drinking alcohol today and found outside of a gas station. He has no other complaints. Related Data Home Medications ?Medication ?Instructions ?Recorded ?Confirmed ?Last Taken ?Type acetaminophen 500 mg tablet 1,000 mg PO Q12H PRN Pain, Fever 02/16/24 02/16/24 Unknown History amlodipine 5 mg tablet 5 mg PO DAILY 02/16/24 02/16/24 Unknown History gabapentin 300 mg capsule 300 mg PO Q8H 02/16/24 02/16/24 Unknown History Allergies Allergy/AdvReac Type Severity Reaction Status Date / Time No Known Allergies Allergy Verified 03/17/24 15:19 Review of Systems Review of Systems: All systems reviewed & are unremarkable except as noted in HPI. 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 Distal left fingers. Anxiety Seizures Surgical History Surgical History History of appendectomy Family History Family History Father Alcohol abuse Tobacco abuse Social History Social History Social History: Smokes 5 cigarettes per day, more when he can afford it. Started smoking around age 25. Drinks about 72 oz of beer per day (3 x 24oz cans). Rarely drinks any other alcoholic beverages. He is estranged from his mother. No children. He is homeless. He denies any illicit drugs. Code status full code Smoking packs per day: 0.25 Smoking cigarettes per day: 5.0 Years smoked: 23 Smoking pack-years: 5.75 Smoking status: Current every day smoker Tobacco type: cigarettes Second hand tobacco smoke exposure: Yes Additional smoking assessment comments: patient states its a different amount all the time Alcohol intake: current Drinks per week: 35 Substance use: never Substance use type: does not use Do You Feel Safe in your Home?: Yes Lack of Transportation: No Lack of Food: Often True Current Housing: I Do Not Have Housing Concerned About Future Housing: YES Difficulty Paying Gas/Electric Bills: YES Difficulty Paying for Meds: YES Currently Unemployed: No Education: Don't Know Difficulty w/ Childcare or Family Care: No Living arrangements: homeless Spiritual care concerns: No Course Vital Signs Vital signs: Vital Signs Temperature 97.4 F L 03/17/24 15:23 Pulse Rate 89 03/17/24 15:23 Respiratory Rate 17 03/17/24 15:23 Blood Pressure 113/77 03/17/24 15:23 Pulse Oximetry 99 03/17/24 15:23 Oxygen Delivery Room Air 03/17/24 15:23 Temperature 97.6 F 03/17/24 17:46 Pulse Rate 78 03/17/24 17:46 Respiratory Rate 16 03/17/24 17:46 Blood Pressure 120/78 03/17/24 17:46 Pulse Oximetry 100 03/17/24 17:46 Oxygen Delivery Room Air 03/17/24 15:23 Discharge Plan Discharge Clinical Impression: Partial nontraumatic amputation of right foot, Homelessness, Encounter for wound care Patient Disposition: Other Condition: Stable Instructions: Antibiotic Form, Chronic Wounds (ED) Patient Language: Sami Prescriptions: No Action levetiracetam 1,000 mg tablet 1,000 mg PO BID 30 Days Qty: 60 0RF famotidine [Pepcid] 40 mg tablet 40 mg PO DAILY 30 Days Qty: 30 0RF folic acid 1 mg Tablet 1 mg PO DAILY Qty: 30 6RF thiamine HCl (vitamin B1) [Vitamin B-1] 100 mg Tablet 100 mg PO QAM Qty: 30 6RF amlodipine 5 mg tablet 5 mg PO DAILY gabapentin 300 mg capsule 300 mg PO Q8H acetaminophen 500 mg tablet 1,000 mg PO Q12H PRN (Reason: Pain, Fever) doxycycline hyclate 100 mg Tablet 100 mg PO Q12HR Qty: 3 0RF amoxicillin-pot clavulanate 875-125 mg tablet 1 tablet PO Q12H Qty: 7 0RF methocarbamol 500 mg tablet 500 mg PO Q8H PRN (Reason: Muscle Spasm) Qty: 5 0RF quetiapine 50 mg tablet 50 mg PO HS Qty: 10 0RF Follow-up/Referrals: PHYSICIAN,PHLEBOTOMY SUPPORT TECH [Primary Care Provider] - Time of Disposition: 17:22
[2024-03-17 17:46] VITALS: BP 120/78; PULSE 78; RESP 16; TEMP 36.4; O2SAT 100
== END 2024-03-17 17:48 | disposition home or self-care (01) ==
LOC: ANHED 17:26
PROVIDERS: Emergency Provider Physician Assistant
DX: Z48.01 Encounter for change or removal of surgical wound dressing (principal); Z59.00 Homelessness unspecified; F17.210 Nicotine dependence, cigarettes, uncomplicated; Z89.431 Acquired absence of right foot; Z89.022 Acquired absence of left finger(s)
CPT/HCPCS: 99282

== ENCOUNTER 2024-03-31 18:59 | Emergency (ER) | payer OTHER, SELFPAY ==
[2024-03-31 19:13] VITALS: BP 136/91; PULSE 98; RESP 20; TEMP 36.6; O2SAT 100
--- NOTE | 2024-03-31 21:27 | ED_ITS ---
HPI - General Adult General Chief complaint: Extremity Problem,Nontraumatic Stated complaint: psychiatric episode Time Seen by Provider: 03/31/24 19:11 History of Present Illness HPI narrative: This is a 48-year-old homeless male who is well known to our emergency department presenting for foot pain. 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 This is been ongoing since January 2023. Patient has no other complaints at this time. 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 Distal left fingers. Anxiety Seizures Surgical History Surgical History History of appendectomy Family History Family History Father Alcohol abuse Tobacco abuse Social History Social History Social History: Smokes 5 cigarettes per day, more when he can afford it. Started smoking around age 25. Drinks about 72 oz of beer per day (3 x 24oz cans). Rarely drinks any other alcoholic beverages. He is estranged from his mother. No children. He is homeless. He denies any illicit drugs. Code status full code Smoking packs per day: 0.25 Smoking cigarettes per day: 5.0 Years smoked: 23 Smoking pack-years: 5.75 Smoking status: Current every day smoker Tobacco type: cigarettes Second hand tobacco smoke exposure: Yes Additional smoking assessment comments: patient states its a different amount all the time Alcohol intake: current Drinks per week: 35 Substance use: never Substance use type: does not use Do You Feel Safe in your Home?: Yes Lack of Transportation: No Lack of Food: Often True Current Housing: I Do Not Have Housing Concerned About Future Housing: YES Difficulty Paying Gas/Electric Bills: YES Difficulty Paying for Meds: YES Currently Unemployed: No Education: Don't Know Difficulty w/ Childcare or Family Care: No Living arrangements: homeless Spiritual care concerns: No Exam Narrative: APPEARANCE: Disheveled, smells of alcohol Head: atraumatic. EYES: EOMI, NOSE: Atraumatic NECK: Trachea midline RESPIRATORY: No increased rate of breathing, CTAB CARDIOVASCULAR: RRR, ABDOMINAL: Non-distended MUSCULOSKELETAl: Partial amputation of the right foot NEURO: Alert. Moving 4/4 extremities SKIN:: Warm, dry. Normal color PSYCHIATRIC: Normal affect Course Vital Signs Vital signs: Vital Signs Temperature 97.8 F 03/31/24 19:13 Pulse Rate 98 03/31/24 19:13 Respiratory Rate 03/31/24 19:13 Blood Pressure 136/91 H 03/31/24 19:13 Pulse Oximetry 100 03/31/24 19:13 Oxygen Delivery Room Air 03/31/24 19:13 Temperature 97.8 F 03/31/24 19:13 Pulse Rate 98 03/31/24 19:13 Respiratory Rate 03/31/24 19:13 Blood Pressure 136/91 H 03/31/24 19:13 Pulse Oximetry 100 03/31/24 19:13 Oxygen Delivery Room Air 03/31/24 19:13 Medical Decision Making MDM Narrative Medical decision making narrative: -Course: 48-year-old homeless male presenting for chronic right foot pain. Patient was given food and water. Patient was discharged. Vital Signs Vital Signs: Vital Signs Temperature 97.8 F 03/31/24 19:13 Pulse Rate 98 03/31/24 19:13 Respiratory Rate 03/31/24 19:13 Blood Pressure 136/91 H 03/31/24 19:13 Pulse Oximetry 100 03/31/24 19:13 Oxygen Delivery Room Air 03/31/24 19:13 Temperature 97.8 F 03/31/24 19:13 Pulse Rate 98 03/31/24 19:13 Respiratory Rate 03/31/24 19:13 Blood Pressure 136/91 H 03/31/24 19:13 Pulse Oximetry 100 03/31/24 19:13 Oxygen Delivery Room Air 03/31/24 19:13 Discharge Plan Discharge Clinical Impression: Homeless Patient Disposition: Home, Self-Care Condition: Stable Instructions: Antibiotic Form, Chronic Pain (ED) Additional Instructions: Please follow-up with your primary care physician for further management. If you do not have a place to stay please go to a homeless custodial. Refrain from using drugs and alcohol. Patient Language: Nigerian Prescriptions: No Action levetiracetam 1,000 mg tablet 1,000 mg PO BID 30 Days Qty: 60 0RF famotidine [Pepcid] 40 mg tablet 40 mg PO DAILY 30 Days Qty: 30 0RF folic acid 1 mg Tablet 1 mg PO DAILY Qty: 30 6RF thiamine HCl (vitamin B1) [Vitamin B-1] 100 mg Tablet 100 mg PO QAM Qty: 30 6RF amlodipine 5 mg tablet 5 mg PO DAILY gabapentin 300 mg capsule 300 mg PO Q8H acetaminophen 500 mg tablet 1,000 mg PO Q12H PRN (Reason: Pain, Fever) doxycycline hyclate 100 mg Tablet 100 mg PO Q12HR Qty: 3 0RF amoxicillin-pot clavulanate 875-125 mg tablet 1 tablet PO Q12H Qty: 7 0RF methocarbamol 500 mg tablet 500 mg PO Q8H PRN (Reason: Muscle Spasm) Qty: 5 0RF quetiapine 50 mg tablet 50 mg PO HS Qty: 10 0RF Follow-up/Referrals: PHYSICIAN,AWNING SPREADER [Primary Care Provider] -
--- OUTSIDE RECORDS SUMMARY | 2024-03-31 21:37 | XMS_ITS | CONTINUITY OF CARE DOCUMENT ---
Author Name casey peña Address Unknown Organization [facility] Address [address] [place] [address] Phone [phone] Care Team Providers Care Coding Machine Operator Name Role Phone Sanket Telles MD Unavailable Sanket Telles MD Unavailable [phone] INSURANCE PROVIDERS Payer name Policy type / Coverage type [employer] red democrat [place] MED[place] Medicaid [id number]
== END 2024-03-31 22:03 | disposition home or self-care (01) ==
PROVIDERS: Emergency Provider Emergency Medicine
DX: M79.671 Pain in right foot (principal); G89.29 Other chronic pain; Z59.00 Homelessness unspecified; I10 Essential (primary) hypertension; E78.5 Hyperlipidemia, unspecified; F31.9 Bipolar disorder, unspecified; F41.8 Other specified anxiety disorders; F17.210 Nicotine dependence, cigarettes, uncomplicated; Z89.421 Acquired absence of other right toe(s); Z89.022 Acquired absence of left finger(s); Z79.899 Other long term (current) drug therapy
CPT/HCPCS: 99281

== ENCOUNTER 2024-04-28 14:54 | Emergency (ER) | payer SELFPAY ==
[2024-04-28 15:00] VITALS: PULSE 113; RESP 18; TEMP 36.4; O2SAT 98
--- NOTE | 2024-04-28 15:23 | ED.ALCOHOL ---
HPI - Alcohol General Chief Complaint: Alcohol <China Alva PA-C - Last Filed: 04/29/24 09:57> Stated Complaint: etoh <China Alva PA-C - Last Filed: 04/29/24 09:57> Time Seen by Provider: 04/28/24 15:23 <China Alva PA-C - Last Filed: 04/29/24 09:57> Focused HPI: This is a 48 year old male that presents to the ER for alcohol intoxication. Reports chronic conditions, pain all over. GENERAL: Disheveled, well-nourished, and in no acute distress. HEAD: Normocephalic, atraumatic. CHEST: Clear to auscultation. ?No respiratory distress. HEART: Regular rate and rhythm.? NEURO: ?Alert and oriented x3. Patient screened in triage and initial orders placed.? ?Additional care and disposition to be based upon?diagnostic testing and treatment. <China Alva PA-C - Last Filed: 04/29/24 09:57> History of Present Illness HPI narrative: Patient 48-year-old gentleman presents emergency department chief complaint of alcohol intoxication the patient was reported to be at the [employer] parking lot and was currently trespassed and transported by the police to the emergency department <Imtiaz Reis MD - Last Filed: 04/28/24 18:42> Related Data Home Medications: Home Medications ?Medication ?Instructions ?Recorded ?Confirmed ?Last Taken ?Type acetaminophen 500 mg tablet 1,000 mg PO Q12H PRN Pain, Fever 02/16/24 02/16/24 Unknown History amlodipine 5 mg tablet 5 mg PO DAILY 02/16/24 02/16/24 Unknown History gabapentin 300 mg capsule 300 mg PO Q8H 02/16/24 02/16/24 Unknown History <JOHNSON Alonso Last Filed: 04/29/24 09:57> Allergies/Adverse Reactions: Allergies Allergy/AdvReac Type Severity Reaction Status Date / Time No Known Allergies Allergy Verified 03/17/24 15:19 <China Alva PA-C - Last Filed: 04/29/24 09:57> Review of Systems Review of Systems: A 10 system review of systems was completed on the patient and is negative except for what is stated in the HPI. Nursing and ancillary documentation was reviewed. <Imtiaz Reis MD - Last Filed: 04/28/24 18:42> [facility] Past Medical History Medical History: Medical History Tobacco abuse Depression with anxiety Alcoholism Bipolar disorder Hypertension Hyperlipidemia Amputation of one or more toes Distal right foot. Distal left fingers. Anxiety Seizures <China Alva PA-C - Last Filed: 04/29/24 09:57> Surgical History Surgical History: Surgical History History of appendectomy <China Alva PA-C - Last Filed: 04/29/24 09:57> Family History Family History: Family History Father Alcohol abuse Tobacco abuse <China Alva PA-C - Last Filed: 04/29/24 09:57> Social History Social History: Social History Social History: Smokes 5 cigarettes per day, more when he can afford it. Started smoking around age 25. Drinks about 72 oz of beer per day (3 x 24oz cans). Rarely drinks any other alcoholic beverages. He is estranged from his mother. No children. He is homeless. He denies any illicit drugs. Code status full code Smoking packs per day: 0.25 Smoking cigarettes per day: 5.0 Years smoked: 23 Smoking pack-years: 5.75 Smoking status: Current every day smoker Tobacco type: cigarettes Second hand tobacco smoke exposure: Yes Additional smoking assessment comments: patient states its a different amount all the time Alcohol intake: current Drinks per week: 35 Substance use: never Substance use type: does not use Do You Feel Safe in your Home?: Yes Lack of Transportation: No Lack of Food: Often True Current Housing: I Do Not Have Housing Concerned About Future Housing: YES Difficulty Paying Gas/Electric Bills: YES Difficulty Paying for Meds: YES Currently Unemployed: No Education: Don't Know Difficulty w/ Childcare or Family Care: No Living arrangements: homeless Spiritual care concerns: No <China Alva PA-C - Last Filed: 04/29/24 09:57> Exam Narrative: GENERAL: Well-appearing, well-nourished, and in no acute distress. HEAD: Normocephalic, atraumatic. EYES: PERRLA and EOMI. ENT: Nares clear, no rhinorrhea or epistaxis. Mucous membranes moist. NECK: Supple. CHEST: Clear to auscultation. No respiratory distress. HEART: Regular rate and rhythm. No murmur heard. Normal peripheral pulses. ABDOMEN: Soft, nontender, nondistended, normal active bowel sounds. EXTREMITIES: Normal range of motion. No edema. The dressings were taken down on the right foot showing no large ulceration SKIN: Warm, dry, no rash. NEURO: No focal deficits. Alert and oriented x3. PSYCH: Normal mood and affect. <Imtiaz Reis MD - Last Filed: 04/28/24 18:42> Course Vital Signs Vital signs: Vital Signs Temperature 97.6 F 04/28/24 15:00 Pulse Rate 113 H 04/28/24 15:00 Respiratory Rate 18 04/28/24 15:00 Pulse Oximetry 98 04/28/24 15:00 Temperature 98 F 04/28/24 18:29 Pulse Rate 78 04/28/24 19:51 Respiratory Rate 16 04/28/24 19:51 Blood Pressure 128/72 04/28/24 19:51 Pulse Oximetry 100 04/28/24 19:51 <China Alva PA-C - Last Filed: 04/29/24 09:57> Vital Signs Temperature 97.6 F 04/28/24 15:00 Pulse Rate 113 H 04/28/24 15:00 Respiratory Rate 18 04/28/24 15:00 Pulse Oximetry 98 04/28/24 15:00 Temperature 98 F 04/28/24 18:29 Pulse Rate 78 04/28/24 19:51 Respiratory Rate 16 04/28/24 19:51 Blood Pressure 128/72 04/28/24 19:51 Pulse Oximetry 100 04/28/24 19:51 <Imtiaz Reis MD - Last Filed: 04/28/24 18:42> MDM - Alcohol Lab Data Result diagrams: 04/28/24 16:02 04/28/24 16:02 <China Alva PA-C - Last Filed: 04/29/24 09:57> Labs: Lab Results 04/28/24 04/28/24 Range/Units 16:02 17:16 WBC 7.6 (4.5-10.0) K/mm3 RBC 4.87 (4.6-6.20) M/mm3 Hgb 14.2 (14.0-18.0) g/dL Hct 42.4 (42.0-52.0) % MCV 87.1 (80-100) fl MCH 29.2 (26-34) pg MCHC 33.5 (32-36) g/dl RDW 15.0 H (11.5-14.5) % Plt Count 461 H D (150-375) k/mm3 MPV 9.0 (7.4-10.4) fl Immature Gran % (Auto) 0.1 (0-0.5) % Neut % (Auto) 74.0 H (45.5-73.1) % Lymph % (Auto) 15.9 L (18.3-44.2) % [place] % (Auto) 8.5 (2.6-8.5) % Eos % (Auto) 0.8 (0-4.4) % Baso % (Auto) 0.7 (0.2-1.2) % Lymph # (Auto) 1.21 (0.9-3.2) K/mm3 [place] # (Auto) 0.7 H (0.1-0.6) K/mm3 Eos # (Auto) 0.1 (0-0.3) K/mm3 Baso # (Auto) 0.1 (0.0-0.1) K/mm3 Abs Immat Gran (auto) 0.01 (0.00-0.031) K/mm3 Absolute Neuts (auto) 5.6 (1.3-6.7) K/mm3 Absolute Nucleated RBC 0.000 (0.0-0.012) K/mm3 Nucleated RBC % 0.0 (0.0-0.2) % PT 13.6 (11.1-14.7) Seconds INR 1.0 APTT 28.5 (22.3-36.8) Seconds Sodium 141 (137-145) mmol/L Potassium 3.7 (3.4-5.0) mmol/L Chloride 101 (98-107) mmol/L Carbon Dioxide 25 (22-30) mmol/L Anion Gap 15 H (4-12) mmol/L BUN 2 L D (9-20) mg/dL Creatinine 0.59 L (0.7-1.3) mg/dL Estim Creat Clear Calc 128 ml/min Estimated GFR > 60 (59 - ) Glucose 94 (65-110) mg/dL Calcium 8.7 (8.4-10.2) mg/dL Total Bilirubin 0.3 (0.2-1.3) mg/dL AST 35 (17-59) U/L ALT 17 (6-50) U/L Alkaline Phosphatase 197 H (38-126) U/L Total Protein 8.0 (6.3-8.2) g/dL Albumin 4.3 (3.5-5.1) g/dL Lipase 222 (23-300) U/L Urine Color Yellow (Yellow) Urine Appearance Clear (Clear) Urine pH 5.5 (5.0-9.0) Ur Specific [place] 1.006 (1.001-1.035) Urine Protein Negative (Negative) mg/dL Urine Glucose (UA) Negative (Negative) mg/dL Urine Ketones Negative (Negative) mg/dL Ur Blood (Man) Negative (Negative) Urine Nitrate Negative (Negative) Urine Bilirubin Negative (Negative) Urine Urobilinogen 0.2 (<2.0) mg/dL Leukocyte Esterase Rfl Negative (Negative) ANNI/UL Urine Opiates Screen Negative (Negative) Urine Methadone Screen Negative (Negative) Ur Barbiturates Screen Negative (Negative) Ur Phencyclidine Scrn Negative (Negative) Ur Amphetamine Screen Negative (Negative) U Benzodiazepines Scrn Negative (Negative) Urine Cocaine Screen Negative (Negative) U Cannabinoids Screen Negative (Negative) Ethyl Alcohol 240 (<10) mg/dL Influenza A (RT-PCR) Negative (Negative) Influenza B (RT-PCR) Negative (Negative) RSV (RT-PCR) Negative (Negative) SARS-CoV-2 RNA (RT-PCR) Negative (Negative) <China Alva PA-C - Last Filed: 02/27/25 09:57> Lab Results 04/28/24 04/28/24 Range/Units 16:02 17:16 WBC 7.6 (4.5-10.0) K/mm3 RBC 4.87 (4.6-6.20) M/mm3 Hgb 14.2 (14.0-18.0) g/dL Hct 42.4 (42.0-52.0) % MCV 87.1 (80-100) fl MCH 29.2 (26-34) pg MCHC 33.5 (32-36) g/dl RDW 15.0 H (11.5-14.5) % Plt Count 461 H D (150-375) k/mm3 MPV 9.0 (7.4-10.4) fl Immature Gran % (Auto) 0.1 (0-0.5) % Neut % (Auto) 74.0 H (45.5-73.1) % Lymph % (Auto) 15.9 L (18.3-44.2) % [place] % (Auto) 8.5 (2.6-8.5) % Eos % (Auto) 0.8 (0-4.4) % Baso % (Auto) 0.7 (0.2-1.2) % Lymph # (Auto) 1.21 (0.9-3.2) K/mm3 [place] # (Auto) 0.7 H (0.1-0.6) K/mm3 Eos # (Auto) 0.1 (0-0.3) K/mm3 Baso # (Auto) 0.1 (0.0-0.1) K/mm3 Abs Immat Gran (auto) 0.01 (0.00-0.031) K/mm3 Absolute Neuts (auto) 5.6 (1.3-6.7) K/mm3 Absolute Nucleated RBC 0.000 (0.0-0.012) K/mm3 Nucleated RBC % 0.0 (0.0-0.2) % PT 13.6 (11.1-14.7) Seconds INR 1.0 APTT 28.5 (22.3-36.8) Seconds Sodium 141 (137-145) mmol/L Potassium 3.7 (3.4-5.0) mmol/L Chloride 101 (98-107) mmol/L Carbon Dioxide 25 (22-30) mmol/L Anion Gap 15 H (4-12) mmol/L BUN 2 L D (9-20) mg/dL Creatinine 0.59 L (0.7-1.3) mg/dL Estim Creat Clear Calc 128 ml/min Estimated GFR > 60 (59 - ) Glucose 94 (65-110) mg/dL Calcium 8.7 (8.4-10.2) mg/dL Total Bilirubin 0.3 (0.2-1.3) mg/dL AST 35 (17-59) U/L ALT 17 (6-50) U/L Alkaline Phosphatase 197 H (38-126) U/L Total Protein 8.0 (6.3-8.2) g/dL Albumin 4.3 (3.5-5.1) g/dL Lipase 222 (23-300) U/L Urine Color Yellow (Yellow) Urine Appearance Clear (Clear) Urine pH 5.5 (5.0-9.0) Ur Specific [place] 1.006 (1.001-1.035) Urine Protein Negative (Negative) mg/dL Urine Glucose (UA) Negative (Negative) mg/dL Urine Ketones Negative (Negative) mg/dL Ur Blood (Man) Negative (Negative) Urine Nitrate Negative (Negative) Urine Bilirubin Negative (Negative) Urine Urobilinogen 0.2 (<2.0) mg/dL Leukocyte Esterase Rfl Negative (Negative) ANNI/UL Urine Opiates Screen Negative (Negative) Urine Methadone Screen Negative (Negative) Ur Barbiturates Screen Negative (Negative) Ur Phencyclidine Scrn Negative (Negative) Ur Amphetamine Screen Negative (Negative) U Benzodiazepines Scrn Negative (Negative) Urine Cocaine Screen Negative (Negative) U Cannabinoids Screen Negative (Negative) Ethyl Alcohol 240 (<10) mg/dL Influenza A (RT-PCR) Negative (Negative) Influenza B (RT-PCR) Negative (Negative) RSV (RT-PCR) Negative (Negative) SARS-CoV-2 RNA (RT-PCR) Negative (Negative) <Imtiaz Reis MD - Last Filed: 04/28/24 18:42> Critical Care Time Critical Care Time Critical Care Time: No <China Alva PA-C - Last Filed: 04/29/24 09:57> Discharge Plan Discharge Clinical Impression: Alcohol abuse <China Alva PA-C - Last Filed: 04/29/24 09:57> Patient Disposition: Home, Self-Care <China Alva PA-C - Last Filed: 04/29/24 09:57> Condition: Stable <China Alva PA-C - Last Filed: 04/29/24 09:57> Instructions: Antibiotic Form, Abuse of Alcohol (ED) <China Alva PA-C - Last Filed: 04/29/24 09:57> Patient Language: Tamaz[place] <China Alva PA-C - Last Filed: 04/29/24 09:57> Prescriptions: No Action levetiracetam 1,000 mg tablet 1,000 mg PO BID 30 Days Qty: 60 0RF famotidine [Pepcid] 40 mg tablet 40 mg PO DAILY 30 Days Qty: 30 0RF folic acid 1 mg Tablet 1 mg PO DAILY Qty: 30 6RF thiamine HCl (vitamin B1) [Vitamin B-1] 100 mg Tablet 100 mg PO QAM Qty: 30 6RF amlodipine 5 mg tablet 5 mg PO DAILY gabapentin 300 mg capsule 300 mg PO Q8H acetaminophen 500 mg tablet 1,000 mg PO Q12H PRN (Reason: Pain, Fever) doxycycline hyclate 100 mg Tablet 100 mg PO Q12HR Qty: 3 0RF amoxicillin-pot clavulanate 875-125 mg tablet 1 tablet PO Q12H Qty: 7 0RF methocarbamol 500 mg tablet 500 mg PO Q8H PRN (Reason: Muscle Spasm) Qty: 5 0RF quetiapine 50 mg tablet 50 mg PO HS Qty: 10 0RF <China Alva PA-C - Last Filed: 04/29/24 09:57> Follow-up/Referrals: Obed Wu MD [Physician] - PHYSICIAN,[facility]IGN[facility]REL AND RECEIVER [Primary Care Provider] - <China Alva PA-C - Last Filed: 04/29/24 09:57> Time of Disposition: 18:42 <China Alva PA-C - Last Filed: 04/29/24 09:57> 18:42 <Imtiaz Reis MD - Last Filed: 04/28/24 18:42>
[2024-04-28 16:17] LABS: Basophils Absolute Auto 0.1 K/mm3 (0.0-0.1); Basophils Percent Auto 0.7 % (0.2-1.2); Eosinophils Absolute Auto 0.1 K/mm3 (0-0.3); Eosinophils Percent Auto 0.8 % (0-4.4); Hematocrit 42.4 % (42.0-52.0); Hemoglobin 14.2 g/dL (14.0-18.0); Immature Granulocyte Absolute 0.01 K/mm3 (0.00-0.031); Immature Granulocyte Percent A 0.1 % (0-0.5); Lymphocytes Absolute Auto 1.21 K/mm3 (0.9-3.2); Lymphocytes Percent Auto 15.9 % (18.3-44.2); Mean Corpuscular HGB Conc 33.5 g/dl (32-36); Mean Corpuscular Hemoglobin 29.2 pg (26-34); Mean Corpuscular Volume 87.1 fl (80-100); Monocytes Absolute Auto 0.7 K/mm3 (0.1-0.6); Monocytes Percent Auto 8.5 % (2.6-8.5); Neutrophils Absolute Auto 5.6 K/mm3 (1.3-6.7); Platelet Count Result 461 k/mm3 (150-375); Red Blood Count 4.87 M/mm3 (4.6-6.20); White Blood Count 7.6 K/mm3 (4.5-10.0)
[2024-04-28 16:26] LABS: Ethanol 240 mg/dL (<10)
[2024-04-28 16:27] LABS: Alanine Aminotransferase 17 U/L (6-50); Albumin Level 4.3 g/dL (3.5-5.1); Alkaline Phosphatase 197 U/L (38-126); Anion Gap 15 mmol/L (4-12); Aspartate Amino Transferase 35 U/L (17-59); Bilirubin,Total 0.3 mg/dL (0.2-1.3); Blood Urea Nitrogen 2 mg/dL (9-20); Calcium 8.7 mg/dL (8.4-10.2); Carbon Dioxide 25 mmol/L (22-30); Chloride 101 mmol/L (98-107); Estimated CRCL calculation 128 ml/min; Estimated Glomerular Filt Rate > 60; Glucose 94 mg/dL (65-110); Lipase 222 U/L (23-300); Potassium 3.7 mmol/L (3.4-5.0); Sodium 141 mmol/L (137-145)
[2024-04-28 16:31] LABS: Prothrombin Time 13.6 Seconds (11.1-14.7)
[2024-04-28 16:32] LABS: Partial Thromboplastin Time 28.5 Seconds (22.3-36.8)
--- NOTE | 2024-04-28 16:38 | PC.NURSE ---
Pt. states he does not have to urinate at this time but has a urinal and will urinate when able.
[2024-04-28 16:56] LABS: Influenza A QL RT-PCR Negative (Negative); Influenza B QL RT-PCR Negative (Negative); RSV RNA, RT-PCR Negative (Negative); SARS-CoV-2 RNA PCR Negative (Negative)
--- OUTSIDE RECORDS SUMMARY | 2024-04-28 17:12 | XMS_ITS | CONTINUITY OF CARE DOCUMENT ---
Author Name casey peña Address Unknown Organization [facility] Address [address] [place] [address] Phone [phone] Care Team Providers Care Copying Machine Repairer Name Role Phone Sanket Telles MD Unavailable Sanket Telles MD Unavailable INSURANCE PROVIDERS Payer name Policy type / Coverage type [place] red green party ID SELF PAY [place] MEDICAID Medicaid [id number]
[2024-04-28 17:24] LABS: Add Urine Microscopic? NO; Appearance Urine Clear (Clear); Bilirubin Urine Negative (Negative); Blood Urine Negative (Negative); Color Urine Yellow (Yellow); Glucose Urine UA Negative (Negative); Ketones Urine Negative (Negative); Leukocyte Esterase Ur Negative LEU/UL (Negative); Nitrate Urine Negative (Negative); Protein Urine Negative (Negative); Specific Grav Ur 1.006 (1.001-1.035); Urobilinogen Urine 0.2 mg/dL (<2.0); pH Urine 5.5 (5.0-9.0)
[2024-04-28 17:46] LABS: Amphetamine Screen Urine Negative (Negative); Barbiturate Screen Urine Negative (Negative); Benzodiazepines Screen Urine Negative (Negative); Cannabinoid Screen Urine Negative (Negative); Cocaine Screen Urine Negative (Negative); Methadone Screen Urine Negative (Negative); Opiate Screen Urine Negative (Negative); Phencyclidine Screen Urine Negative (Negative)
[2024-04-28 18:29] VITALS: BP 125/84; PULSE 90; RESP 16; TEMP 36.6; O2SAT 97
--- OUTSIDE RECORDS SUMMARY | 2024-04-28 18:37 | XMS_ITS | CONTINUITY OF CARE DOCUMENT ---
Author Name casey peña Address Unknown Organization [facility] Address [address] [place] [address] Phone [phone] Care Team Providers Care Supervisor Lace Tearing Name Role Phone Sanket Telles MD Unavailable Sanket Telles MD Unavailable [phone] INSURANCE PROVIDERS Payer name Policy type / Coverage type [place] red green party ID SELF PAY [place] MEDICAID Medicaid [id number]
[2024-04-28] MEDS: chlordiazePOXIDE (*CRX) 25 MG CAPSULE 50 MG PO (19:50)
[2024-04-28 19:51] VITALS: BP 128/72; PULSE 78; RESP 16; O2SAT 100
== END 2024-04-28 20:02 | disposition home or self-care (01) ==
PROVIDERS: Physician Assistant; Emergency Provider Emergency Medicine
DX: F10.129 Alcohol abuse with intoxication, unspecified (principal); Y90.8 Blood alcohol level of 240 mg/100 ml or more; F41.8 Other specified anxiety disorders; I10 Essential (primary) hypertension; E78.5 Hyperlipidemia, unspecified; F17.210 Nicotine dependence, cigarettes, uncomplicated; Z11.59 Encounter for screening for other viral diseases
CPT/HCPCS: 36415; 80053; 80307; 81003; 82077; 83690; 85025; 85610; 85730; 87637; 99283; A9270

== ENCOUNTER 2024-05-19 02:45 | Observation (INO) | payer MEDICAID, SELFPAY ==
[2024-05-19] VITALS (22 sets, daily range): BP systolic 101–125; BP diastolic 66–89; PULSE 62–104; RESP 16–21; TEMP 36.4–36.9; O2SAT 94–100; BMI 25.8
--- NOTE | 2024-05-19 02:53 | ECG_ITS ---
Test Date: 2024-05-19 02:53:43 Measurements Intervals [place] Rate: 101 P: 37 IL: 166 QRS: 44 QRSD: 87 T: 52 QT: 338 QTc: 439 Interpretive Statements SINUS TACHYCARDIA LOW QRS VOLTAGE IN PRECORDIAL LEADS [QRS DEFLECTION < 1.0 mV IN CHEST LEADS] ABNORMAL ECG Electronically Signed On 05-19-2024 12:25:15 CDT by Rishabh Miranda M.D.
[2024-05-19 03:11] LABS: Basophils Absolute Auto 0.1 K/mm3 (0.0-0.1); Eosinophils Absolute Auto 0.2 K/mm3 (0-0.3); Eosinophils Percent Auto 3.8 % (0-4.4); Hematocrit 37.6 % (42.0-52.0); Hemoglobin 12.3 g/dL (14.0-18.0); Immature Granulocyte Absolute 0.01 K/mm3 (0.00-0.031); Immature Granulocyte Percent A 0.2 % (0-0.5); Lymphocytes Absolute Auto 1.31 K/mm3 (0.9-3.2); Lymphocytes Percent Auto 22.4 % (18.3-44.2); Mean Corpuscular HGB Conc 32.7 g/dl (32-36); Mean Corpuscular Hemoglobin 28.5 pg (26-34); Mean Platelet Volume 9.8 fl (7.4-10.4); Monocytes Percent Auto 16.6 % (2.6-8.5); Neutrophils Absolute Auto 3.3 K/mm3 (1.3-6.7); Platelet Count Result 290 k/mm3 (150-375); Red Blood Count 4.32 M/mm3 (4.6-6.20); Red Cell Distribution Width 14.6 % (11.5-14.5); White Blood Count 5.8 K/mm3 (4.5-10.0)
[2024-05-19] MEDS: LORazepam INJ (*CRX) 2 MG/ML VIAL IV PUSH (03:15)
[2024-05-19] MEDS: DEXTROSE 5%/0.9% SOD CHL 1,000 ML 125 ML IV CONT (03:15)
[2024-05-19 03:23] LABS: INR 1.1; Prothrombin Time 14.6 Seconds (11.1-14.7)
[2024-05-19 03:24] LABS: Alanine Aminotransferase 22 U/L (6-50); Alkaline Phosphatase 106 U/L (38-126); Anion Gap 14 mmol/L (4-12); Aspartate Amino Transferase 35 U/L (17-59); Bilirubin,Total 0.3 mg/dL (0.2-1.3); Blood Urea Nitrogen 5 mg/dL (9-20); Calcium 8.4 mg/dL (8.4-10.2); Carbon Dioxide 20 mmol/L (22-30); Chloride 102 mmol/L (98-107); Estimated CRCL calculation 114 ml/min; Estimated Glomerular Filt Rate > 60; Glucose 81 mg/dL (65-110); Magnesium 1.6 mg/dL (1.6-2.3); Phosphorus 3.1 mg/dL (2.5-4.5); Potassium 3.6 mmol/L (3.4-5.0); Sodium 136 mmol/L (137-145)
[2024-05-19] MEDS: THIAMINE 500 MG/NS 100 ML 500 MG/100 ML BAG 200 MG IVPB (03:28)
[2024-05-19 03:29] LABS: Ethanol < 10 mg/dL (<10)
--- OUTSIDE RECORDS SUMMARY | 2024-05-19 03:32 | XMS_ITS | CONTINUITY OF CARE DOCUMENT ---
Author Name casey peña Address Unknown Organization [facility] Address [address] [place] [address] Phone [phone] Care Team Providers Care Circulation Clerk Name Role Phone Sanket Telles MD Unavailable Sanket Telles MD Unavailable [phone] INSURANCE PROVIDERS Payer name Policy type / Coverage type [place] red [place] party ID SELF PAY [place] MEDICAID Medicaid [id number]
[2024-05-19] MEDS: chlordiazePOXIDE (*CRX) 25 MG CAPSULE 50 MG PO ×3 (03:58→17:07)
[2024-05-19 04:01] LABS: Glucose Point of Care 102 mg/dl (65-105)
--- NOTE | 2024-05-19 05:00 | ED_ITS ---
HPI - General Adult General Chief complaint: Seizure Stated complaint: SZ AT [facility] Time Seen by Provider: 05/19/24 02:57 History of Present Illness HPI narrative: Patient is a 48-year-old gentleman who presents emergency department chief complaint of alcohol withdrawal seizure. The patient has history of alcohol abuse and has had alcohol withdrawal seizures in the past patient is currently in custody of the industrial maintenance repairer's department and was brought in after a seizure in [facility]. The patient reports he is unsure of his last drink reports that he is back to his baseline neurological status Related Data Home Medications ?Medication ?Instructions ?Recorded ?Confirmed ?Last Taken ?Type acetaminophen 500 mg tablet 1,000 mg PO Q12H PRN Pain, Fever 02/16/24 02/16/24 Unknown History amlodipine 5 mg tablet 5 mg PO DAILY 02/16/24 02/16/24 Unknown History gabapentin 300 mg capsule 300 mg PO Q8H 02/16/24 02/16/24 Unknown History Allergies Allergy/AdvReac Type Severity Reaction Status Date / Time No Known Allergies Allergy Verified 03/17/24 15:19 Review of Systems 2 Review of Systems: A 10 system review of systems was completed on the patient and is negative except for what is stated in the HPI. Nursing and ancillary documentation was reviewed. 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 Distal left fingers. Anxiety Seizures Surgical History Surgical History History of appendectomy Family History Family History Father Alcohol abuse Tobacco abuse Social History Social History Social History: Smokes 5 cigarettes per day, more when he can afford it. Started smoking around age 25. Drinks about 72 oz of beer per day (3 x 24oz cans). Rarely drinks any other alcoholic beverages. He is estranged from his mother. No children. He is homeless. He denies any illicit drugs. Code status full code Smoking packs per day: 0.25 Smoking cigarettes per day: 5.0 Years smoked: 23 Smoking pack-years: 5.75 Smoking status: Current every day smoker Tobacco type: cigarettes Second hand tobacco smoke exposure: Yes Additional smoking assessment comments: patient states its a different amount all the time Alcohol intake: current Drinks per week: 35 Substance use: never Substance use type: does not use Do You Feel Safe in your Home?: Yes Lack of Transportation: No Lack of Food: Often True Current Housing: I Do Not Have Housing Concerned About Future Housing: YES Difficulty Paying Gas/Electric Bills: YES Difficulty Paying for Meds: YES Currently Unemployed: No Education: Don't Know Difficulty w/ Childcare or Family Care: No Living arrangements: homeless Spiritual care concerns: No Exam 2 Narrative: GENERAL: Well-appearing, well-nourished, and in no acute distress. HEAD: Normocephalic, atraumatic. EYES: PERRLA and EOMI. ENT: Nares clear, no rhinorrhea or epistaxis. Mucous membranes moist. NECK: Supple. CHEST: Clear to auscultation. No respiratory distress. HEART: Regular rate and rhythm. No murmur heard. Normal peripheral pulses. ABDOMEN: Soft, nontender, nondistended, normal active bowel sounds. EXTREMITIES: Normal range of motion. No edema. SKIN: Warm, dry, no rash. NEURO: No focal deficits. Alert and oriented x3. PSYCH: Normal mood and affect. Course Vital Signs Vital signs: Vital Signs Temperature 36.9 C 05/19/24 02:50 Pulse Rate 104 H 05/19/24 02:50 Respiratory Rate 16 05/19/24 02:50 Blood Pressure 125/89 05/19/24 02:50 Pulse Oximetry 94 05/19/24 02:50 Oxygen Delivery Room Air 05/19/24 02:50 Temperature 36.9 C 05/19/24 02:50 Pulse Rate 99 05/19/24 03:31 Respiratory Rate 20 05/19/24 03:31 Blood Pressure 113/89 05/19/24 03:31 Pulse Oximetry 96 05/19/24 03:31 Oxygen Delivery Room Air 05/19/24 03:30 Medical Decision Making [facility] Narrative Medical decision making narrative: Differential diagnosis includes alcohol withdrawal seizure, The patient was given IV thiamine in the emergency department IV fluids and given Ativan and Librium. The patient is still in custody due to this the patient cannot be medically cleared for discharge back to correctional facility case was discussed with the hospitalist the patient will be admitted for further care Vital Signs Vital Signs: Vital Signs Temperature 36.9 C 05/19/24 02:50 Pulse Rate 104 H 05/19/24 02:50 Respiratory Rate 16 05/19/24 02:50 Blood Pressure 125/89 05/19/24 02:50 Pulse Oximetry 94 05/19/24 02:50 Oxygen Delivery Room Air 05/19/24 02:50 Temperature 36.9 C 05/19/24 02:50 Pulse Rate 99 05/19/24 03:31 Respiratory Rate 20 05/19/24 03:31 Blood Pressure 113/89 05/19/24 03:31 Pulse Oximetry 96 05/19/24 03:31 Oxygen Delivery Room Air 05/19/24 03:30 Lab Data 05/19/24 03:03 05/19/24 03:03 Labs: Lab Results 05/19/24 05/19/24 Range/Units 03:03 03:58 WBC 5.8 (4.5-10.0) K/mm3 RBC 4.32 L (4.6-6.20) M/mm3 Hgb 12.3 L (14.0-18.0) g/dL Hct 37.6 L (42.0-52.0) % MCV 87.0 (80-100) fl MCH 28.5 (26-34) pg MCHC 32.7 (32-36) g/dl RDW 14.6 H (11.5-14.5) % Plt Count 290 (150-375) k/mm3 MPV 9.8 (7.4-10.4) fl Immature Gran % (Auto) 0.2 (0-0.5) % Neut % (Auto) 56.0 (45.5-73.1) % Lymph % (Auto) 22.4 (18.3-44.2) % [place] % (Auto) 16.6 H (2.6-8.5) % Eos % (Auto) 3.8 (0-4.4) % Baso % (Auto) 1.0 (0.2-1.2) % Lymph # (Auto) 1.31 (0.9-3.2) K/mm3 [place] # (Auto) 1.0 H (0.1-0.6) K/mm3 Eos # (Auto) 0.2 (0-0.3) K/mm3 Baso # (Auto) 0.1 (0.0-0.1) K/mm3 Abs Immat Gran (auto) 0.01 (0.00-0.031) K/mm3 Absolute Neuts (auto) 3.3 (1.3-6.7) K/mm3 Absolute Nucleated RBC 0.000 (0.0-0.012) K/mm3 Nucleated RBC % 0.0 (0.0-0.2) % PT 14.6 (11.1-14.7) Seconds INR 1.1 Sodium 136 L (137-145) mmol/L Potassium 3.6 (3.4-5.0) mmol/L Chloride 102 (98-107) mmol/L Carbon Dioxide 20 L (22-30) mmol/L Anion Gap 14 H (4-12) mmol/L BUN 5 L (9-20) mg/dL Creatinine 0.74 (0.7-1.3) mg/dL Estim Creat Clear Calc 114 ml/min Estimated GFR > 60 (59 - ) Glucose 81 (65-110) mg/dL POC Capillary Glucose 102 (65-105) mg/dl Calcium 8.4 (8.4-10.2) mg/dL Phosphorus 3.1 (2.5-4.5) mg/dL Magnesium 1.6 (1.6-2.3) mg/dL Total Bilirubin 0.3 (0.2-1.3) mg/dL AST 35 (17-59) U/L ALT 22 (6-50) U/L Alkaline Phosphatase 106 (38-126) U/L Total Protein 7.0 (6.3-8.2) g/dL Albumin 4.0 (3.5-5.1) g/dL Ethyl Alcohol < 10 (<10) mg/dL Discharge Plan Discharge Clinical Impression: Alcohol withdrawal seizure Patient Disposition: Still a Patient Condition: Stable Patient Language: Citizen [place] Prescriptions: No Action levetiracetam 1,000 mg tablet 1,000 mg PO BID 30 Days Qty: 60 0RF famotidine [Pepcid] 40 mg tablet 40 mg PO DAILY 30 Days Qty: 30 0RF folic acid 1 mg Tablet 1 mg PO DAILY Qty: 30 6RF thiamine HCl (vitamin B1) [Vitamin B-1] 100 mg Tablet 100 mg PO QAM Qty: 30 6RF amlodipine 5 mg tablet 5 mg PO DAILY gabapentin 300 mg capsule 300 mg PO Q8H acetaminophen 500 mg tablet 1,000 mg PO Q12H PRN (Reason: Pain, Fever) doxycycline hyclate 100 mg Tablet 100 mg PO Q12HR Qty: 3 0RF amoxicillin-pot clavulanate 875-125 mg tablet 1 tablet PO Q12H Qty: 7 0RF methocarbamol 500 mg tablet 500 mg PO Q8H PRN (Reason: Muscle Spasm) Qty: 5 0RF quetiapine 50 mg tablet 50 mg PO HS Qty: 10 0RF Follow-up/Referrals: PHYSICIAN,SAMPLE BOOK MAKER [Primary Care Provider] - Time of Disposition: 05:03
--- NOTE | 2024-05-19 07:04 | ADMGEN ---
This patient, Luis Desouza, was admitted to Intensive Care Unit-4. Patient/family oriented to hospital policies and general routines including ID bracelet, bed and alarms, visiting hours, pain management, procedures, bathroom and other care routines, personal items, smoking policy, room service/diet, and visiting hours. Information on how to activate the Rapid Response Team has been discussed. Patient/Family are encouraged to report perceived risks to care and to ask questions if they do not understand what they are told or what they should do.
[2024-05-19] MEDS: THIAMINE HCL 200 MG/2 ML VIAL 100 MG IV PUSH (07:51)
--- NOTE | 2024-05-19 09:03 | P.HP_ITS ---
H&P: HPI History of Present Illness Date/Time: 05/19/24 09:03 Chief Complaint: Seizure Narrative: This is a 48-year-old male who presents to the ED with seizure episode last night. Patient was in custody and while in custody he had seizure episode he drank class at 7:00 p.m. in the evening. In the ED is vitals were stable. Laboratory studies showed WBC of 5.8 hemoglobin of 12.3 Chem panel unremarkable. Ethyl alcohol level was less than 10. Patient admitted for further treatment. Review of Systems Review of Systems: - CONSTITUTIONAL: Denies weight loss, fe chrissy and chills. - HEENT: Denies changes in vision and he aring - RESPIRATORY: Denies SOB and cough. - CV: Denies palpitations and CP. - GI: Denies abdominal pain, nausea, vom iting and diarrhea. - : Denies dysuria and urinary frequen cy. - MSK: Denies myalgia and joint pain. - SKIN: Denies rash and pruritus. - NEUROLOGICAL: Denies headache and sync ope. See HPI - PSYCHIATRIC: Denies recent changes in mood. Denies anxiety and depression. [facility] Past Medical History Medical History Tobacco abuse Depression with anxiety Alcoholism Bipolar disorder Hypertension Hyperlipidemia Amputation of one or more toes Distal right foot. Distal left fingers. Anxiety Seizures Surgical History Surgical History History of appendectomy Family History Family History Father Alcohol abuse Tobacco abuse Social History Social History Social History: Smokes 5 cigarettes per day, more when he can afford it. Started smoking around age 25. Drinks about 72 oz of beer per day (3 x 24oz cans). Rarely drinks any other alcoholic beverages. He is estranged from his mother. No children. He is homeless. He denies any illicit drugs. Code status full code Smoking packs per day: 1 Smoking cigarettes per day: 20.0 Years smoked: 20 Smoking pack-years: 20.00 Smoking status: Current every day smoker Tobacco type: cigarettes Second hand tobacco smoke exposure: Yes Additional smoking assessment comments: patient states its a different amount all the time Alcohol intake: current Drinks per week: 35 Substance use: never Substance use type: does not use Do You Feel Safe in your Home?: Yes Lack of Transportation: No Lack of Food: Often True Current Housing: I Do Not Have Housing Concerned About Future Housing: YES Difficulty Paying Gas/Electric Bills: YES Difficulty Paying for Meds: YES Currently Unemployed: No Education: Don't Know Difficulty w/ Childcare or Family Care: No Living arrangements: homeless Spiritual care concerns: No Meds Home Medications and Allergies Home Medications ?Medication ?Instructions ?Recorded ?Confirmed ?Type folic acid 1 mg tablet 1 mg PO DAILY #30 tabs 07/04/22 05/19/24 Rx thiamine HCl (vitamin B1) 100 mg 100 mg PO QAM #30 tabs 07/04/22 05/19/24 Rx tablet (Vitamin B-1) famotidine 40 mg tablet (Pepcid) 40 mg PO DAILY 1 month #30 tabs 12/13/22 05/19/24 Rx levetiracetam 1,000 mg tablet 1,000 mg PO BID 1 month #60 tabs 12/13/22 05/19/24 Rx amlodipine 5 mg tablet 5 mg PO DAILY 02/16/24 05/19/24 History gabapentin 300 mg capsule 300 mg PO Q8H 02/16/24 05/19/24 History quetiapine 50 mg tablet 50 mg PO HS #10 tabs 02/19/24 05/19/24 Rx Allergies Allergy/AdvReac Type Severity Reaction Status Date / Time No Known Allergies Allergy Verified 03/17/24 15:19 Vital Signs Vital Signs - 24 hr 05/19/24 02:50 05/19/24 03:30 05/19/24 03:31 Temperature 98.5 F Pulse Rate 104 H 99 Respiratory Rate 16 20 Blood Pressure 125/89 113/89 Pulse Oximetry 94 100 96 Oxygen Delivery Room Air Room Air 05/19/24 04:00 05/19/24 04:01 05/19/24 04:15 Temperature Pulse Rate 97 97 Respiratory Rate 20 19 Blood Pressure 124/88 Pulse Oximetry 95 96 96 Oxygen Delivery 05/19/24 04:30 05/19/24 04:31 05/19/24 05:00 Temperature Pulse Rate 101 H Respiratory Rate 20 Blood Pressure 108/79 113/80 Pulse Oximetry 97 96 Oxygen Delivery 05/19/24 08:00 Temperature 97.5 F L Pulse Rate 75 Respiratory Rate 21 H Blood Pressure 101/77 Pulse Oximetry 96 Oxygen Delivery Exam Narrative: GENERAL: Well-appearing, well-nourished, patient groggy and in no acute distress. HEAD: Normocephalic, atraumatic. EYES: PERRLA and EOMI. ENT: Nares clear, no rhinorrhea or epistaxis. Mucous membranes moist. NECK: Supple. CHEST: Clear to auscultation. No respiratory distress. HEART: Regular rate and rhythm. No murmur heard. Normal peripheral pulses. ABDOMEN: Soft, nontender, nondistended, normal active bowel sounds. EXTREMITIES: Normal range of motion. No edema. The dressings were taken down on the right foot showing ulcer on the tip medially. No signs of infection SKIN: Warm, dry, no rash. NEURO: No focal deficits. Alert and oriented x3. But groggy PSYCH: Normal mood and affect. H&P: Results Labs Labs: Short CBC 05/19/24 Range/Units 03:03 WBC 5.8 (4.5-10.0) K/mm3 Hgb 12.3 L (14.0-18.0) g/dL Hct 37.6 L (42.0-52.0) % Plt Count 290 (150-375) k/mm3 BMP 05/19/24 03:03 Sodium 136 L Potassium 3.6 Chloride 102 Carbon Dioxide 20 L BUN 5 L Creatinine 0.74 Glucose 81 Calcium 8.4 Liver Function 05/19/24 Range/Units 03:03 Total Bilirubin 0.3 (0.2-1.3) mg/dL AST 35 (17-59) U/L ALT 22 (6-50) U/L Alkaline Phosphatase 106 (38-126) U/L Albumin 4.0 (3.5-5.1) g/dL Assessment and Plan Assessment and plan (1) Anxiety: Code(s): F41.9 - Anxiety disorder, unspecified Status: Acute (2) Alcohol abuse: Code(s): F10.10 - Alcohol abuse, uncomplicated Status: Acute (3) Bipolar disorder: Code(s): F31.9 - Bipolar disorder, unspecified Status: Acute (4) Seizures: Code(s): R56.9 - Unspecified convulsions Status: Acute (5) Alcohol withdrawal seizure: Code(s): F10.939 - Alcohol use, unspecified with withdrawal, unspecified; R56.9 - Unspecified convulsions Status: Acute (6) Hypertension: Code(s): I10 - Essential (primary) hypertension Status: Acute (7) Hyperlipidemia: Code(s): E78.5 - Hyperlipidemia, unspecified Status: Acute Plan This is a 48-year-old male who presents to the ED with seizure episode last h t. Patient was in custody and while in custody he had seizure episode he drank class at 7:00 p.m. in the evening. In the ED is vitals were stable. Laboratory studies showed WBC of 5.8 hemoglobin of 12.3 Chem panel unremarkable. Ethyl alcohol level was less than 10. Patient admitted for further treatment. 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
[2024-05-19] MEDS: FAMOTIDINE 20 MG TABLET 40 MG PO (09:24)
[2024-05-19] MEDS: levETIRAcetam 500 MG TABLET 1000 MG PO ×2 (09:24→17:07)
[2024-05-19] MEDS: FOLIC ACID 1 MG TABLET PO (09:24)
[2024-05-19] MEDS: GABAPENTIN 300 MG CAPSULE PO ×3 (09:25→20:57)
[2024-05-19 11:41] LABS: Glucose Point of Care 90 mg/dl (65-105)
--- NOTE | 2024-05-19 15:35 | PC.NURSE ---
This patient, Luis Desouza, was transferred to [[id number]] on 05/19/24 at 1520. Personal belongings sent with patient. Report given to [THOMAS Garrett @ [phone] ]. Appropriate documentation sent with patient.
[2024-05-19] MEDS: QUEtiapine FUMARATE 25 MG TABLET 50 MG PO (20:57)
[2024-05-20] VITALS (16 sets, daily range): BP systolic 104–120; BP diastolic 64–73; PULSE 54–75; RESP 16–20; TEMP 36.4–37.1; O2SAT 93–99
[2024-05-20 04:36] LABS: Basophils Percent Auto 0.9 % (0.2-1.2); Eosinophils Absolute Auto 0.2 K/mm3 (0-0.3); Eosinophils Percent Auto 3.6 % (0-4.4); Hematocrit 39.3 % (42.0-52.0); Hemoglobin 12.7 g/dL (14.0-18.0); Immature Granulocyte Absolute 0.01 K/mm3 (0.00-0.031); Immature Granulocyte Percent A 0.2 % (0-0.5); Lymphocytes Absolute Auto 1.56 K/mm3 (0.9-3.2); Lymphocytes Percent Auto 35.5 % (18.3-44.2); Mean Corpuscular HGB Conc 32.3 g/dl (32-36); Mean Corpuscular Hemoglobin 28.9 pg (26-34); Mean Corpuscular Volume 89.5 fl (80-100); Mean Platelet Volume 10.5 fl (7.4-10.4); Monocytes Absolute Auto 0.5 K/mm3 (0.1-0.6); Monocytes Percent Auto 11.8 % (2.6-8.5); Neutrophils Absolute Auto 2.1 K/mm3 (1.3-6.7); Platelet Count Result 296 k/mm3 (150-375); Red Blood Count 4.39 M/mm3 (4.6-6.20); Red Cell Distribution Width 14.8 % (11.5-14.5); White Blood Count 4.4 K/mm3 (4.5-10.0)
[2024-05-20 04:51] LABS: Alanine Aminotransferase 17 U/L (6-50); Albumin Level 3.4 g/dL (3.5-5.1); Alkaline Phosphatase 128 U/L (38-126); Anion Gap 4 mmol/L (4-12); Aspartate Amino Transferase 24 U/L (17-59); Bilirubin,Total 0.2 mg/dL (0.2-1.3); Blood Urea Nitrogen 8 mg/dL (9-20); Calcium 8.5 mg/dL (8.4-10.2); Carbon Dioxide 26 mmol/L (22-30); Chloride 110 mmol/L (98-107); Estimated CRCL calculation 110 ml/min; Estimated Glomerular Filt Rate > 60; Glucose 98 mg/dL (65-110); Potassium 3.4 mmol/L (3.4-5.0); Sodium 140 mmol/L (137-145)
[2024-05-20] MEDS: levETIRAcetam 500 MG TABLET 1000 MG PO ×2 (07:40→17:05)
[2024-05-20] MEDS: chlordiazePOXIDE (*CRX) 25 MG CAPSULE 50 MG PO ×3 (07:56→17:05)
[2024-05-20] MEDS: amLODIPine BESYLATE 5 MG TABLET PO (08:22)
[2024-05-20] MEDS: THIAMINE HCL 100 MG TABLET PO (08:22)
[2024-05-20] MEDS: FOLIC ACID 1 MG TABLET PO (08:23)
[2024-05-20] MEDS: FAMOTIDINE 20 MG TABLET 40 MG PO (08:23)
[2024-05-20] MEDS: GABAPENTIN 300 MG CAPSULE PO ×2 (14:30→20:14)
--- NOTE | 2024-05-20 16:10 | P.PNIM_ITS ---
Progress Note: A&P Assessment and Plan (1) Anxiety: Code(s): F41.9 - Anxiety disorder, unspecified Status: Acute (2) Alcohol abuse: Code(s): F10.10 - Alcohol abuse, uncomplicated Status: Acute (3) Bipolar disorder: Code(s): F31.9 - Bipolar disorder, unspecified Status: Acute (4) Seizures: Code(s): R56.9 - Unspecified convulsions Status: Acute (5) Alcohol withdrawal seizure: Code(s): F10.939 - Alcohol use, unspecified with withdrawal, unspecified; R56.9 - Unspecified convulsions Status: Acute Plan This is a 48-year-old male who presents to the ED with seizure episode last night. Patient was in custody and while in custody he had seizure episode he drank class at 7:00 p.m. in the evening. In the ED is vitals were stable. Laboratory studies showed WBC of 5.8 hemoglobin of 12.3 Chem panel unremarkable. Ethyl alcohol level was less than 10. Patient admitted for further treatment. 48 y/o male with PMHx of Bipolar psychiatric illness and history of alcohol abuse stats his last drink was day before yesterday however patient is a poor historian, he was brought to the after he had a seizure while in a police custody, since admission patient has not had any seizures, patient in under [facility] protocol he his clinically stable, will move him out of IMU and transfer to medical floor, will monitor him and plan, most likely he had alcohol related seizures. Subjective Date/time seen: 05/20/24 16:10 Interval history: Seizure H&P-Narrative: This is a 48-year-old male who presents to the ED with seizure episode last night. Patient was in custody and while in custody he had seizure episode he drank class at 7:00 p.m. in the evening. In the ED is vitals were stable. Laboratory studies showed WBC of 5.8 hemoglobin of 12.3 Chem panel unremarkable. Ethyl alcohol level was less than 10. Patient admitted for further treatment. 48 y/o male with PMHx of Bipolar psychiatric illness and history of alcohol abuse stats his last drink was day before yesterday however patient is a poor historian, he was brought to the after he had a seizure while in a police custody, since admission patient has not had any seizures, patient in under [facility] protocol he his clinically stable, will move him out of IMU and transfer to medical floor, will monitor him and plan, most likely he had alcohol related seizures. Exam Narrative: GENERAL: Well-appearing, well-nourished, patient groggy and in no acute distress. HEAD: Normocephalic, atraumatic. EYES: PERRLA and EOMI. ENT: Nares clear, no rhinorrhea or epistaxis. Mucous membranes moist. NECK: Supple. CHEST: Clear to auscultation. No respiratory distress. HEART: Regular rate and rhythm. No murmur heard. Normal peripheral pulses. ABDOMEN: Soft, nontender, nondistended, normal active bowel sounds. EXTREMITIES: Normal range of motion. No edema. The dressings were taken down on the right foot showing ulcer on the tip medially. No signs of infection SKIN: Warm, dry, no rash. NEURO: No focal deficits. Alert and oriented x3. But groggy PSYCH: Normal mood and affect. Objective Data Vital Signs Vital Signs: Vital Signs - 24 hr 05/19/24 18:00 05/19/24 20:00 05/19/24 20:14 Temperature 36.8 C Pulse Rate 70 77 62 Respiratory Rate 18 Blood Pressure 115/66 Pulse Oximetry 97 Oxygen Delivery 05/19/24 21:00 05/19/24 22:00 05/19/24 23:24 Temperature 36.9 C Pulse Rate 62 63 67 Respiratory Rate 18 18 Blood Pressure 110/68 Pulse Oximetry 97 99 Oxygen Delivery Room Air 05/19/24 23:49 05/20/24 00:00 05/20/24 02:00 Temperature Pulse Rate 67 58 L 59 L Respiratory Rate 18 Blood Pressure Pulse Oximetry 99 Oxygen Delivery Room Air 05/20/24 03:43 05/20/24 03:44 05/20/24 04:00 Temperature 37.1 C Pulse Rate 57 L 54 L 55 L Respiratory Rate 18 18 Blood Pressure 104/64 Pulse Oximetry 96 99 Oxygen Delivery Room Air 05/20/24 06:00 05/20/24 07:59 05/20/24 10:17 Temperature 36.4 C Pulse Rate 56 L 57 L Respiratory Rate 16 Blood Pressure 120/73 Pulse Oximetry 99 98 Oxygen Delivery Room Air 05/20/24 11:28 Temperature 36.9 C Pulse Rate 75 Respiratory Rate 20 Blood Pressure 111/66 Pulse Oximetry 98 Oxygen Delivery Intake/Output Intake/Output: Intake & Output 05/17/24 05/18/24 05/19/24 05/20/24 23:59 23:59 23:59 23:59 Intake Total 7 3711 Output Total 600 875 Balance 5986 4776 Meds/Results Medications: Active Medications Generic Name Dose Route Start Last Admin Trade Name Freq PRN Reason Stop Dose Admin Amlodipine Besylate 5 mg 05/20/24 09:00 05/20/24 08:22 Amlodipine Besylate 5 Mg Tablet PO 5 mg DAILY PARVEZ Administration Chlordiazepoxide HCl 50 mg 05/20/24 07:45 05/20/24 12:44 Chlordiazepoxide (*Crx) 25 Mg Capsule PO 50 mg Q6HR PARVEZ Administration Famotidine 40 mg 05/19/24 09:00 05/20/24 08:23 Famotidine 20 Mg Tablet PO 40 mg DAILY PARVEZ Administration Folic Acid 1 mg 05/19/24 09:00 05/20/24 08:23 Folic Acid 1 Mg Tablet PO 1 mg DAILY PARVEZ Administration Gabapentin 300 mg 05/19/24 09:10 05/20/24 14:30 Gabapentin 300 Mg Capsule PO 300 mg Q8HR PARVEZ Administration Levetiracetam 1,000 mg 05/19/24 09:00 05/20/24 07:40 Levetiracetam 500 Mg Tablet PO 1,000 mg BID PARVEZ Administration Lorazepam 2 mg 05/19/24 03:06 05/19/24 03:15 Lorazepam Inj (*Crx) 2 Mg/Ml Vial IV PUSH 2 mg Q2H PRN Administration CIWA > 15 Lorazepam 2 mg 05/19/24 05:03 Lorazepam Inj (*Crx) 2 Mg/Ml Vial IV PUSH Q4H PRN CIWA 8-15 Ondansetron HCl 4 mg 05/19/24 03:06 Ondansetron Inj 4 Mg/2 Ml Vial IV PUSH Q6H PRN Nausea And Vomiting Quetiapine Fumarate 50 mg 05/19/24 21:00 05/19/24 20:57 Quetiapine Fumarate 25 Mg Tablet PO 50 mg HS PARVEZ Administration Thiamine HCl 100 mg 05/20/24 09:00 05/20/24 08:22 Thiamine Hcl 100 Mg Tablet PO 100 mg QAM PARVEZ Administration Labs Labs: Laboratory Results - last 24 hr 05/20/24 05/20/24 03:57 03:58 WBC 4.4 L RBC 4.39 L Hgb 12.7 L Hct 39.3 L MCV 89.5 MCH 28.9 MCHC 32.3 RDW 14.8 H Plt Count 296 MPV 10.5 H Immature Gran % (Auto) 0.2 Neut % (Auto) 48.0 Lymph % (Auto) 35.5 Sebastian % (Auto) 11.8 H Eos % (Auto) 3.6 Baso % (Auto) 0.9 Lymph # (Auto) 1.56 Sebastian # (Auto) 0.5 Eos # (Auto) 0.2 Baso # (Auto) 0.0 Abs Immat Gran (auto) 0.01 Absolute Neuts (auto) 2.1 Absolute Nucleated RBC 0.000 Nucleated RBC % 0.0 Sodium 140 Potassium 3.4 Chloride 110 H Carbon Dioxide 26 Anion Gap 4 BUN 8 L Creatinine 0.67 L Estim Creat Clear Calc 110 Estimated GFR > 60 Glucose 98 Calcium 8.5 Magnesium 2.0 Total Bilirubin 0.2 AST 24 ALT 17 Alkaline Phosphatase 128 H Total Protein 6.0 L Albumin 3.4 L
[2024-05-20] MEDS: QUEtiapine FUMARATE 25 MG TABLET 50 MG PO (20:14)
[2024-05-21] VITALS: PULSE 82
[2024-05-21] MEDS: chlordiazePOXIDE (*CRX) 25 MG CAPSULE 50 MG PO ×2 (00:03→06:41)
[2024-05-21 04:00] VITALS: PULSE 61
[2024-05-21] MEDS: GABAPENTIN 300 MG CAPSULE PO (06:41)
[2024-05-21 08:00] VITALS: BP 123/80; PULSE 76; RESP 18; TEMP 36.4; O2SAT 100
--- NOTE | 2024-05-21 08:02 | P.PNIM_ITS ---
Progress Note: A&P Assessment and Plan (1) Anxiety: Code(s): F41.9 - Anxiety disorder, unspecified Status: Acute (2) Alcohol abuse: Code(s): F10.10 - Alcohol abuse, uncomplicated Status: Acute (3) Bipolar disorder: Code(s): F31.9 - Bipolar disorder, unspecified Status: Acute (4) Seizures: Code(s): R56.9 - Unspecified convulsions Status: Acute (5) Alcohol withdrawal seizure: Code(s): F10.939 - Alcohol use, unspecified with withdrawal, unspecified; R56.9 - Unspecified convulsions Status: Acute (6) Hypertension: Code(s): I10 - Essential (primary) hypertension Status: Acute (7) Hyperlipidemia: Code(s): E78.5 - Hyperlipidemia, unspecified Status: Acute Plan This is a 48-year-old male who presents to the ED with seizure episode last night. Patient was in custody and while in custody he had seizure episode he drank class at 7:00 p.m. in the evening. In the ED is vitals were stable. Laboratory studies showed WBC of 5.8 hemoglobin of 12.3 Chem panel unremarkable. Ethyl alcohol level was less than 10. Patient admitted for further treatment. History of seizure disorder on Keppra History of alcohol withdrawal seizure Alcohol abuse [facility] protocol scheduled Librium. 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 Wants to go home. He states he is going to take a bus. He lives in [place]. Review of Systems Review of Systems: All systems reviewed & are unremarkable except as noted in HPI and below Exam Narrative: GENERAL: Well-appearing, well-nourished, patient groggy and in no acute distress. HEAD: Normocephalic, atraumatic. EYES: PERRLA and EOMI. ENT: Nares clear, no rhinorrhea or epistaxis. Mucous membranes moist. NECK: Supple. CHEST: Clear to auscultation. No respiratory distress. HEART: Regular rate and rhythm. No murmur heard. Normal peripheral pulses. ABDOMEN: Soft, nontender, nondistended, normal active bowel sounds. EXTREMITIES: Normal range of motion. No edema. The dressings were taken down on the right foot showing ulcer on the tip medially. No signs of infection SKIN: Warm, dry, no rash. NEURO: No focal deficits. Alert and oriented x3. PSYCH: Normal mood and affect. Objective Data Vital Signs Vital Signs: Vital Signs - 24 hr 05/20/24 10:17 05/20/24 11:28 05/20/24 12:00 Temperature 98.4 F Pulse Rate 75 73 Respiratory Rate 20 Blood Pressure 111/66 Pulse Oximetry 98 98 Oxygen Delivery Room Air 05/20/24 16:00 05/20/24 16:00 05/20/24 19:54 Temperature 98.5 F 97.6 F Pulse Rate 60 58 L 63 Respiratory Rate 16 18 Blood Pressure 111/68 114/71 Pulse Oximetry 99 93 Oxygen Delivery 05/20/24 20:00 05/20/24 20:20 05/20/24 23:40 Temperature Pulse Rate 63 63 62 Respiratory Rate 18 Blood Pressure Pulse Oximetry 93 Oxygen Delivery Room Air 05/21/24 00:00 05/21/24 04:00 Temperature Pulse Rate 82 61 Respiratory Rate Blood Pressure Pulse Oximetry Oxygen Delivery Intake/Output Intake/Output: Intake & Output 05/18/24 05/19/24 05/20/24 05/21/24 23:59 23:59 23:59 23:59 Intake Total 2057 4061 1180 Output Total 600 3625 1200 Balance 1457 436 -20 Meds/Results Medications: Active Medications Generic Name Dose Route Start Last Admin Trade Name Freq PRN Reason Stop Dose Admin Amlodipine Besylate 5 mg 05/20/24 09:00 05/20/24 08:22 Amlodipine Besylate 5 Mg Tablet PO 5 mg DAILY PARVEZ Administration Chlordiazepoxide HCl 50 mg 05/20/24 07:45 05/21/24 06:41 Chlordiazepoxide (*Crx) 25 Mg Capsule PO 50 mg Q6HR PARVEZ Administration Famotidine 40 mg 05/19/24 09:00 05/20/24 08:23 Famotidine 20 Mg Tablet PO 40 mg DAILY PARVEZ Administration Folic Acid 1 mg 05/19/24 09:00 05/20/24 08:23 Folic Acid 1 Mg Tablet PO 1 mg DAILY PARVZE Administration Gabapentin 300 mg 05/19/24 09:10 05/21/24 06:41 Gabapentin 300 Mg Capsule PO 300 mg Q8HR PARVEZ Administration Levetiracetam 1,000 mg 05/19/24 09:00 05/20/24 17:05 Levetiracetam 500 Mg Tablet PO 1,000 mg BID PARVEZ Administration Lorazepam 2 mg 05/19/24 03:06 05/19/24 03:15 Lorazepam Inj (*Crx) 2 Mg/Ml Vial IV PUSH 2 mg Q2H PRN Administration CIWA > 15 Lorazepam 2 mg 05/19/24 05:03 Lorazepam Inj (*Crx) 2 Mg/Ml Vial IV PUSH Q4H PRN CIWA 8-15 Ondansetron HCl 4 mg 05/19/24 03:06 Ondansetron Inj 4 Mg/2 Ml Vial IV PUSH Q6H PRN Nausea And Vomiting Quetiapine Fumarate 50 mg 05/19/24 21:00 05/20/24 20:14 Quetiapine Fumarate 25 Mg Tablet PO 50 mg HS PARVEZ Administration Thiamine HCl 100 mg 05/20/24 09:00 05/20/24 08:22 Thiamine Hcl 100 Mg Tablet PO 100 mg QAM PARVEZ Administration
[2024-05-21] MEDS: FAMOTIDINE 20 MG TABLET 40 MG PO (08:41)
[2024-05-21] MEDS: levETIRAcetam 500 MG TABLET 1000 MG PO (08:41)
[2024-05-21] MEDS: THIAMINE HCL 100 MG TABLET PO (08:41)
[2024-05-21] MEDS: FOLIC ACID 1 MG TABLET PO (08:41)
[2024-05-21] MEDS: amLODIPine BESYLATE 5 MG TABLET PO (08:41)
--- NOTE | 2024-05-21 09:31 | P.DS_ITS ---
DS: Admitting Diagnosis Discharge Date 05/21/2024 Admitting Diagnosis Seizure DS: Discharge Diagnosis Discharge Diagnosis (1) Anxiety: Code(s): F41.9 - Anxiety disorder, unspecified Status: Acute (2) Alcohol abuse: Code(s): F10.10 - Alcohol abuse, uncomplicated Status: Acute (3) Bipolar disorder: Code(s): F31.9 - Bipolar disorder, unspecified Status: Acute (4) Seizures: Code(s): R56.9 - Unspecified convulsions Status: Acute (5) Alcohol withdrawal seizure: Code(s): F10.939 - Alcohol use, unspecified with withdrawal, unspecified; R56.9 - Unspecified convulsions Status: Acute (6) Hypertension: Code(s): I10 - Essential (primary) hypertension Status: Acute (7) Hyperlipidemia: Code(s): E78.5 - Hyperlipidemia, unspecified Status: Acute DS: Summary Hospital Course Hospital Course: This is a 48-year-old male who presents to the ED with seizure episode last night. Patient was in custody and while in custody he had seizure episode he drank class at 7:00 p.m. in the evening. In the ED is vitals were stable. Laboratory studies showed WBC of 5.8 hemoglobin of 12.3 Chem panel unremarkable. Ethyl alcohol level was less than 10. Patient admitted for further treatment. No further seizure during the hospital stay. He remain on CIWA protocol. CIWA score pretty low and no signs of alcohol withdrawal throughout the hospital stay History of seizure disorder on Keppra History of alcohol withdrawal seizure Alcohol abuse CIWA protocol scheduled Librium. 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 HEAD: Normocephalic, atraumatic. EYES: PERRLA and EOMI. ENT: Nares clear, no rhinorrhea or epistaxis. Mucous membranes moist. NECK: Supple. CHEST: Clear to auscultation. No respiratory distress. HEART: Regular rate and rhythm. No murmur heard. Normal peripheral pulses. ABDOMEN: Soft, nontender, nondistended, normal active bowel sounds. EXTREMITIES: Normal range of motion. No edema. The dressings were taken down on the right foot showing ulcer on the tip medially. No signs of infection SKIN: Warm, dry, no rash. NEURO: No focal deficits. Alert and oriented x3. PSYCH: Normal mood and affect. Discharge Plan Discharge Attending physician on discharge: Ej Loco Discharging Clinician: Ej Loco Anticipated Discharge Date/Time: 05/21/24 09:32 Patient Disposition: Home, Self-Care Activity: as tolerated Diet: as tolerated and regular Patient Instructions: Antibiotic Form Patient Language: Pashto Stand Alone Forms: General Discharge Information Follow-up/Referrals: PHYSICIAN,COAL OR ORE CONTROLLER [Primary Care Provider] - 1 Week Discharge Medications: New chlordiazepoxide HCl 25 mg capsule 25 mg PO TID PRN (Reason: alcohol withdrawal) Qty: 6 0RF Rx Instructions: take one cap three times daily x 1 day then twice daily x 1 day then once daily x 1 day then stop Continued levetiracetam 1,000 mg tablet 1,000 mg PO BID 30 Days Qty: 60 0RF famotidine [Pepcid] 40 mg tablet 40 mg PO DAILY 30 Days Qty: 30 0RF folic acid 1 mg Tablet 1 mg PO DAILY Qty: 30 6RF thiamine HCl (vitamin B1) [Vitamin B-1] 100 mg Tablet 100 mg PO QAM Qty: 30 6RF amlodipine 5 mg tablet 5 mg PO DAILY gabapentin 300 mg capsule 300 mg PO Q8H quetiapine 50 mg tablet 50 mg PO HS Qty: 10 0RF Date of admission: 05/19/24 04:59 Primary Care Provider: PHYSICIAN,COAL OR ORE CONTROLLER Admitting Provider: Cailin Leahy Attending physician on admission: Cailin Leahy Condition: Stable
== END 2024-05-21 11:10 | disposition home or self-care (01) ==
LOC: ANHED 05:04 → ANHIMU 05-20 12:33 → ANHICU 05-24 07:16
PROVIDERS: Admitting Provider Internal Medicine; Emergency Provider Emergency Medicine; Visit Provider Internal Medicine
DX: F10.139 Alcohol abuse with withdrawal, unspecified (principal); Y90.0 Blood alcohol level of less than 20 mg/100 ml; G40.909 Epilepsy, unspecified, not intractable, without status epilepticus; F41.8 Other specified anxiety disorders; F31.9 Bipolar disorder, unspecified; I10 Essential (primary) hypertension; E78.5 Hyperlipidemia, unspecified; F17.210 Nicotine dependence, cigarettes, uncomplicated; Z59.00 Homelessness unspecified; Z89.431 Acquired absence of right foot; Z79.899 Other long term (current) drug therapy
CPT/HCPCS: 36415; 80053; 82077; 82948; 83735; 84100; 85025; 85610; 93005; 96365; 96375; 96376; 99212; 99285; A9270; G0378; G0463; J2060; J3411; J7042